=== PATIENT | female | born 1965 | race Caucasian/White ===

== ENCOUNTER 2022-07-01 10:53 | Inpatient (IN) ==
[2022-07-01] MEDS ORDERED: SODIUM CHLORIDE 0.9% 1000ML 1,000 ML IV ONE ×2 (11:29→15:41)
[2022-07-01] MEDS ORDERED: ONDANSETRON INJ 2 MG/ML 2 ML VIAL IV STA (11:29)
--- NOTE | 2022-07-01 11:29 | Emergency Department Note ---
Impression & Plan Pneumatosis of intestines, Abdominal pain, Leukocytosis ED Provider Note CHIEF COMPLAINT: Abdominal pain HISTORY OF PRESENT ILLNESS: This 56 yo female patient presents to the emergency department with complaints of generalized abdominal pain that began overnight. Patient states she felt as though she needed to have a bowel movement and took 2 stool softeners. The pain escalated shortly thereafter. Patient states that she has a history of a spinal cord stimulator and is a borderline diabetic. She took 4 Tylenol tablets prior to arrival. She feels the pain is worsening she denies any vomiting or fevers. She denies any blood in the stool. She was able to pass 1 despite these interventions. Small formed stool without any relief. REVIEW OF SYSTEMS: A review of systems was performed with positives and pertinent negatives listed in the history of present illness. 10 systems were reviewed and are otherwise negative. ALLERGIES: see below MEDICATIONS: see below PMH: see below SOCIAL HISTORY: see below DDx:Appendicitis, diverticulitis, UTI, obstruction, mesenteric ischemia, aortic pathology, inflammatory bowel disease, renal colic, PUD, pancreatitis, biliary pathology, hernia, volvulus, constipation, as well as other pathologies. PHYSICAL EXAM: Vital signs reviewed. General: Chronically ill-appearing 56-year-old female, in no significant distress. HEENT: No scleral icterus, PERRLA, neck supple. MMM. Nicotine staining noted. Cardiovascular: Tachycardic rate and rhythm, no extra sounds. Pulmonary: Clear to auscultation bilaterally, normal work of breathing. Abdomen: Soft, tender to palpation RLQ, + guarding, no tympany to percussion, nondistended, positive bowel sounds. Musculoskeletal: Atraumatic, no peripheral edema. Neurologic: Patient awake alert and oriented x 3, speech is clear Skin: Warm, dry, no rash EMERGENCY DEPARTMENT COURSE/MDM: This patient was evaluated and appeared to be in some discomfort. IV access was obtained and laboratory work was drawn. Patient was given IV morphine and Zofran for her discomfort. Patient is noted to be tachycardic and remained tachycardic throughout her stay. She was also medicated with IV Zosyn after blood cultures were performed. Patient's laboratory work reveals an elevated WBC of 15.59 but a normal lactate 1.8. LFTs are within normal limits. There is concern over tiny loculated pockets of air concerning for bowel ischemia and/or small perforations. Patient was placed on continuous IV hydration and discussed with the hospitalist service. General surgery was contacted for consultation. Patient has expressed understanding of plan and agrees. MONITORING: An order for cardiac monitoring was placed and the patient is noted to be in a sinus tachycardia at 128 beats per minute. RADIOLOGY: See below EKG: Sinus tachycardia at 138 with a left anterior fascicular block, possible an terior infarct. QTc is 427, normal ST segments. No PVC, no PAC. No significant change from previous dated 07/29/2021 DISPOSITION: Admission Past Med/Surg History Medical History Anxiety Bipolar disorder Bipolar disorder, unspecified Cervical radiculopathy Depression Diabetes Fibromyalgia GERD (gastroesophageal reflux disease) Hx of concussion Lumbar pain Mood disorder Surgical History H/O knee surgery Hx of cholecystectomy Hx of hysterectomy S/P insertion of spinal cord stimulator Family History Other Diabetes Gallbladder disease Social History Smoking Status: Current every day smoker Tobacco Type: Cigarettes Preferred Language: Polish Communication Ability: Unable marital status: Single Current Living Situation: Alone current occupational status: employed Feels Safe at Home: Yes Assistive Devices: None Allergies Allergies Allergy/AdvReac Type Severity Reaction Status Date / Time Iodinated Contrast Media Allergy Severe throat Verified 07/01/22 15:31 edema Sulfa (Sulfonamide Allergy Severe ANAPHYLAXIS Verified 07/01/22 15:31 Antibiotics) nitrofurantoin Allergy Intermediate Rash Verified 07/01/22 15:31 iodine Allergy Unknown Unknown Verified 07/01/22 15:31 gabapentin AdvReac Severe intensifies Verified 07/01/22 15:31 bipolar depression codeine AdvReac Intermediate Nausea Verified 07/01/22 15:31 Home Meds Home Medications Medication Instructions Recorded Confirmed aripiprazole 20 mg tablet 20 mg PO QAM 06/02/18 07/01/22 esomeprazole magnesium 20 mg 20 mg PO DAILYBB 06/02/18 07/01/22 tablet,delayed release (Nexium 24HR) hydroxyzine HCl 50 mg tablet 50 mg PO BID 06/02/18 07/01/22 trazodone 100 mg tablet 200 mg PO HS 06/02/18 07/01/22 prazosin 2 mg capsule (Minipress) 2 mg PO HS 09/16/20 07/01/22 prazosin 1 mg capsule (Minipress) 1 mg PO HS 11/06/20 07/01/22 pregabalin 150 mg capsule 150 mg PO QAM 04/15/21 07/01/22 baclofen 10 mg tablet 10 mg PO QAM 07/09/21 07/01/22 pregabalin 225 mg capsule 225 mg PO HS 07/09/21 07/01/22 clobetasol 0.05 % topical cream 1 applic topical BID PRN AFFECTED 07/01/22 07/01/22 AREA dextran 70-hypromellose eye drops 1 drp ophthalmic (eye) HS 07/01/22 07/01/22 lamotrigine 25 mg tablet 50 mg PO QAM 07/01/22 07/01/22 levothyroxine 175 mcg tablet 175 mcg PO DAILYBB 07/01/22 07/01/22 metformin 500 mg tablet,extended 500 mg PO QAM 07/01/22 07/01/22 release 24 hr multivit w-Ca,khncngal-GA-hbasks 1 tab PO HS 07/01/22 07/01/22 complex no.223 400 mcg tablet (Estroven Mood and Memory) tramadol 50 mg tablet 50 mg PO BID PRN Pain 07/01/22 07/01/22 Previous Rx's Medication Instructions Recorded ondansetron 4 mg disintegrating 4 mg PO Q8H PRN nausea and 03/14/19 tablet vomiting #14 tabs ciprofloxacin HCl 500 mg tablet 500 mg PO BID 7 days #14 tabs 07/10/22 (Cipro) metronidazole 500 mg tablet 500 mg PO Q8H 7 days #21 tabs 07/10/22 oxycodone-acetaminophen 5 mg-325 1 tab PO Q8H PRN pain #15 tabs 07/10/22 mg tablet (Percocet) Results & Data (ED) Vital Signs Vital Signs - 24 hr 07/01/22 11:02 Temperature 36.7 C Temperature Source Temporal Artery Scan Pulse Rate 128 H Respiratory Rate 18 Respiratory Effort / Characteristics Non-Labored Respiratory Depth Normal Respiratory Pattern Regular Blood Pressure 107/76 Blood Pressure Mean 86 Blood Pressure Position Sitting Pulse Oximetry 95 Oxygen Delivery Method Room Air Sepsis Recent Fever Within 48 Hours No Sepsis New/Unexplained Change in Mental Status No Sepsis Action Taken by Nursing No Action Required Home Medications Current Medication List: was personally reviewed by me Laboratory Data Attestation: I reviewed the patient's lab results. Result diagrams: 07/09/22 08:38 07/09/22 08:38 Lab Results 07/01/22 07/01/22 07/01/22 Range/Units 11:25 11:25 11:25 WBC 15.59 H (4.8-10.8) K/ul RBC 5.79 H (3.93-5.22) M/uL Hgb 17.2 H (12.0-16.0) g/dl Hct 52.9 H (34.1-44.9) % MCV 91.4 (80.0-100.0) fL MCH 29.7 (25.0-34.0) pg MCHC 32.5 (32.0-36.0) g/dL RDW Std Deviation 46.0 (36.4-46.3) fL RDW Coeff of Arnold 13.6 (11.5-14.5) % Plt Count 303 (130-400) K/uL MPV 10.5 (9.4-12.3) fL Immature Gran % (Auto) 0.4 % Neut % (Auto) 88.3 % Lymph % (Auto) 6.2 % [place] % (Auto) 4.7 % Eos % (Auto) 0.1 % Baso % (Auto) 0.3 % Neut # (Auto) 13.77 H (1.4-6.5) K/uL Lymph # (Auto) 0.97 L (1.2-3.4) K/uL [place] # (Auto) 0.73 (0.24-0.82) K/uL Eos # (Auto) 0.02 (0-0.50) K/uL Baso # (Auto) 0.04 (0-0.2) K/uL Immature Gran # (Auto) 0.06 H (0.00-0.02) K/uL Sodium 143 (136-145) mmol/L Potassium 4.0 (3.5-5.1) mmol/L Chloride 108 H (98-107) mmol/L Carbon Dioxide 25 (21-32) mmol/L Anion Gap 10 (3-11) BUN 12 (6-23) mg/dl Creatinine 0.70 (0.6-1.2) mg/dl Est Cr Clr Drug Dosing 93.8 ml/min Est GFR ( Amer) 113.8 ml/min Est GFR (Non-Af Amer) 98.2 ml/min BUN/Creatinine Ratio 17.1 (10-20) Glucose 147 H (70-99(Fasting)) mg/dl Lactate (0.4-2.0) mmol/L Calcium 10.4 H (8.5-10.1) mg/dl Total Bilirubin 0.6 (0.2-1.0) mg/dl AST 15 (13-39) U/L ALT 15 (7-52) U/L Alkaline Phosphatase 81 (34-104) U/L Total Protein 7.3 (6.0-8.3) gm/dl Albumin 4.3 (3.4-5.0) gm/dl Globulin 3.0 (2.5-4.0) gm/dl Albumin/Globulin Ratio 1.4 (0.9-2) Lipase 8 L (11-82) U/L TSH 0.028 L (0.300-4.500) uIu/ml Free T4 0.69 (0.61-1.60) ng/dl 07/01/22 Range/Units 15:39 WBC (4.8-10.8) K/ul RBC (3.93-5.22) M/uL Hgb (12.0-16.0) g/dl Hct (34.1-44.9) % MCV (80.0-100.0) fL MCH (25.0-34.0) pg MCHC (32.0-36.0) g/dL RDW Std Deviation (36.4-46.3) fL RDW Coeff of Arnold (11.5-14.5) % Plt Count (130-400) K/uL MPV (9.4-12.3) fL Immature Gran % (Auto) % Neut % (Auto) % Lymph % (Auto) % [place] % (Auto) % Eos % (Auto) % Baso % (Auto) % Neut # (Auto) (1.4-6.5) K/uL Lymph # (Auto) (1.2-3.4) K/uL [place] # (Auto) (0.24-0.82) K/uL Eos # (Auto) (0-0.50) K/uL Baso # (Auto) (0-0.2) K/uL Immature Gran # (Auto) (0.00-0.02) K/uL Sodium (136-145) mmol/L Potassium (3.5-5.1) mmol/L Chloride (98-107) mmol/L Carbon Dioxide (21-32) mmol/L Anion Gap (3-11) BUN (6-23) mg/dl Creatinine (0.6-1.2) mg/dl Est Cr Clr Drug Dosing ml/min Est GFR ( Amer) ml/min Est GFR (Non-Af Amer) ml/min BUN/Creatinine Ratio (10-20) Glucose (70-99(Fasting)) mg/dl Lactate 1.6 (0.4-2.0) mmol/L Calcium (8.5-10.1) mg/dl Total Bilirubin (0.2-1.0) mg/dl AST (13-39) U/L ALT (7-52) U/L Alkaline Phosphatase (34-104) U/L Total Protein (6.0-8.3) gm/dl Albumin (3.4-5.0) gm/dl Globulin (2.5-4.0) gm/dl Albumin/Globulin Ratio (0.9-2) Lipase (11-82) U/L TSH (0.300-4.500) uIu/ml Free T4 (0.61-1.60) ng/dl Administered Medications Discontinued Medications Acetaminophen (Acetaminophen 325 Mg Tab) 650 mg PO Q4H PRN PRN Reason: Mild Pain Stop: 08/03/22 09:49 Last Admin: 07/09/22 17:19 Dose: 650 mg Documented By: Admin: 07/09/22 11:26 Dose: 650 mg Documented By: Admin: 07/06/22 12:25 Dose: 650 mg Documented By: RRR Aripiprazole (Aripiprazole 10 Mg Tab) 20 mg PO QAM DASHA Stop: 08/01/22 08:59 Last Admin: 07/10/22 08:08 Dose: 20 mg Documented By: Admin: 07/09/22 08:16 Dose: 20 mg Documented By: Admin: 07/08/22 08:35 Dose: 20 mg Documented By: Admin: 07/07/22 08:35 Dose: 20 mg Documented By: Admin: 07/06/22 08:46 Dose: 20 mg Documented By: Admin: 07/05/22 08:30 Dose: 20 mg Documented By: Admin: 07/04/22 09:49 Dose: 20 mg Documented By: Admin: 07/03/22 11:26 Dose: 20 mg Documented By: Admin: 07/02/22 09:10 Dose: 20 mg Documented By: SUB Artificial Tears (Artificial Tears) 1 drops OP HS DASHA Stop: 07/31/22 21:04 Last Admin: 07/09/22 19:49 Dose: Not Given Documented By: Admin: 07/08/22 21:19 Dose: Not Given Documented By: Admin: 07/07/22 20:16 Dose: Not Given Documented By: Admin: 07/06/22 20:14 Dose: Not Given Documented By: Admin: 07/05/22 20:47 Dose: 1 drops Documented By: Admin: 07/04/22 20:35 Dose: 1 drops Documented By: Admin: 07/03/22 20:45 Dose: 1 drops Documented By: Admin: 07/02/22 20:29 Dose: 1 drops Documented By: Admin: 07/01/22 21:30 Dose: Not Given Documented By: MNM Baclofen (Baclofen 10 Mg Tab) 10 mg PO QAM DASHA Stop: 08/01/22 08:59 Last Admin: 07/10/22 08:27 Dose: 10 mg Documented By: Admin: 07/09/22 08:22 Dose: 10 mg Documented By: Admin: 07/08/22 08:44 Dose: 10 mg Documented By: Admin: 07/07/22 08:46 Dose: 10 mg Documented By: Admin: 07/06/22 10:09 Dose: 10 mg Documented By: Admin: 07/05/22 08:29 Dose: 10 mg Documented By: Admin: 07/04/22 09:50 Dose: 10 mg Documented By: Admin: 07/03/22 11:26 Dose: 10 mg Documented By: Admin: 07/02/22 09:10 Dose: 10 mg Documented By: SUB Bupivacaine HCl (Bupivacaine 0.5 % 5 Mg/1 Ml Mpf 30ml Vial) Confirm Administered Dose 30 ml .ROUTE .STK-MED ONE Stop: 07/02/22 11:12 Last Admin: 07/02/22 14:03 Dose: 20 ml Documented By: CY Enoxaparin Sodium (Enoxaparin Inj 40 Mg/0.4 Ml Syr) 40 mg SQ QAM DASHA Stop: 08/03/22 10:14 Last Admin: 07/10/22 08:08 Dose: 40 mg Documented By: Admin: 07/09/22 08:16 Dose: 40 mg Documented By: Admin: 07/08/22 08:36 Dose: 40 mg Documented By: Admin: 07/07/22 08:36 Dose: 40 mg Documented By: Admin: 07/06/22 11:02 Dose: 40 mg Documented By: Admin: 07/05/22 08:39 Dose: 40 mg Documented By: Admin: 07/04/22 10:20 Dose: 40 mg Documented By: WRS Furosemide (Furosemide Inj 20 Mg/2 Ml Vial) 20 mg IV ONE ONE Stop: 07/06/22 15:02 Last Admin: 07/06/22 15:18 Dose: 20 mg Documented By: RRR Furosemide (Furosemide Inj 20 Mg/2 Ml Vial) 20 mg IV ONE ONE Stop: 07/07/22 12:29 Last Admin: 07/07/22 13:20 Dose: 20 mg Documented By: KKS Heparin Sodium (Porcine) (Heparin Sod 5,000 Unit/0.5 Ml Vial) 5,000 units SQ Q12 DASHA Stop: 07/31/22 20:59 Last Admin: 07/01/22 21:30 Dose: Not Given Documented By: MNM Heparin Sodium (Porcine) (Heparin Sod 5,000 Unit/0.5 Ml Vial) 5,000 units SQ Q8 DASHA Stop: 08/01/22 08:59 Last Admin: 07/02/22 09:11 Dose: 5,000 units Documented By: SUB Hydromorphone HCl (Hydromorphone Inj 0.5 Mg/0.5 Ml Syr) 0.5 mg IV Q6H PRN PRN Reason: Pain Stop: 07/15/22 18:41 Last Admin: 07/02/22 05:00 Dose: 0.5 mg Documented By: Admin: 07/01/22 21:45 Dose: 0.5 mg Documented By: DANAE Hydromorphone HCl (Hydromorphone Inj 1 Mg/Ml Syringe) 1 mg IV Q6H PRN PRN Reason: Pain Stop: 07/16/22 16:38 Last Admin: 07/03/22 07:51 Dose: 1 mg Documented By: Admin: 07/03/22 01:01 Dose: 1 mg Documented By: Admin: 07/02/22 19:57 Dose: 1 mg Documented By: SAMANTHA Hydromorphone HCl (Hydromorphone Inj 0.5 Mg/0.5 Ml Syr) 0.5 mg IV Q4H PRN PRN Reason: Pain Stop: 07/17/22 12:19 Last Admin: 07/05/22 08:29 Dose: 0.5 mg Documented By: Admin: 07/04/22 14:47 Dose: 0.5 mg Documented By: Admin: 07/04/22 10:30 Dose: 0.5 mg Documented By: Admin: 07/03/22 16:52 Dose: 0.5 mg Documented By: LISA Hydromorphone HCl (Hydromorphone Inj 0.5 Mg/0.5 Ml Syr) 0.5 mg IV Q4H PRN PRN Reason: severe pain Stop: 07/17/22 12:19 Last Admin: 07/09/22 19:49 Dose: 0.5 mg Documented By: Admin: 07/09/22 14:47 Dose: 0.5 mg Documented By: Admin: 07/08/22 17:57 Dose: 0.5 mg Documented By: Admin: 07/08/22 08:44 Dose: 0.5 mg Documented By: Admin: 07/07/22 19:47 Dose: 0.5 mg Documented By: Admin: 07/07/22 15:22 Dose: 0.5 mg Documented By: Admin: 07/07/22 01:42 Dose: 0.5 mg Documented By: Admin: 07/06/22 19:41 Dose: 0.5 mg Documented By: Admin: 07/06/22 14:16 Dose: 0.5 mg Documented By: Admin: 07/06/22 08:47 Dose: 0.5 mg Documented By: Admin: 07/06/22 02:52 Dose: 0.5 mg Documented By: Admin: 07/05/22 17:13 Dose: 0.5 mg Documented By: Admin: 07/05/22 13:57 Dose: 0.5 mg Documented By: BRENDA Hydroxyzine HCl (Hydroxyzine Hcl 25 Mg Tab) 50 mg PO BID DASHA Stop: 07/31/22 21:04 Last Admin: 07/10/22 08:12 Dose: 50 mg Documented By: Admin: 07/09/22 19:47 Dose: 50 mg Documented By: Admin: 07/09/22 08:19 Dose: 50 mg Documented By: Admin: 07/08/22 21:18 Dose: 50 mg Documented By: Admin: 07/08/22 08:44 Dose: 50 mg Documented By: Admin: 07/07/22 20:28 Dose: 50 mg Documented By: Admin: 07/07/22 08:46 Dose: 50 mg Documented By: Admin: 07/06/22 20:13 Dose: 50 mg Documented By: Admin: 07/06/22 10:10 Dose: 50 mg Documented By: Admin: 07/05/22 20:47 Dose: 50 mg Documented By: Admin: 07/05/22 08:30 Dose: 50 mg Documented By: Admin: 07/04/22 20:34 Dose: 50 mg Documented By: Admin: 07/04/22 09:50 Dose: 50 mg Documented By: Admin: 07/03/22 20:46 Dose: 50 mg Documented By: Admin: 07/03/22 11:26 Dose: 50 mg Documented By: Admin: 07/02/22 19:56 Dose: Not Given Documented By: Admin: 07/02/22 09:10 Dose: 50 mg Documented By: Admin: 07/01/22 21:30 Dose: Not Given Documented By: MNM Sodium Chloride (Nss 1000ml) 1,000 mls @ 999 mls/hr IV .Q1H1M ONE Stop: 07/01/22 12:29 Last Infusion: 07/01/22 13:45 Dose: 0 mls/hr Documented By: [id number] Admin: 07/01/22 11:35 Dose: 999 mls/hr Documented By: SERGE Piperacillin Sod/Tazobactam Sod (Zosyn) 4.5 gm in 120 mls @ 240 mls/hr IV NOW ONE Stop: 07/01/22 16:02 Last Infusion: 07/01/22 17:34 Dose: 0 mls/hr Documented By: [id number] Admin: 07/01/22 15:47 Dose: 240 mls/hr Documented By: [id number] Sodium Chloride (Nss 1000ml) 1,000 mls @ 150 mls/hr IV .Q6H40M DASHA Stop: 07/31/22 15:44 Last Infusion: 07/01/22 21:35 Dose: 0 mls/hr Documented By: Admin: 07/01/22 17:39 Dose: 150 mls/hr Documented By: [id number] Sodium Chloride (Nss 1000ml) 1,000 mls @ 999 mls/hr IV .Q1H1M ONE Stop: 07/01/22 16:41 Last Infusion: 07/01/22 17:34 Dose: 0 mls/hr Documented By: [id number] Admin: 07/01/22 15:49 Dose: 999 mls/hr Documented By: [id number] Piperacillin Sod/Tazobactam (Sod 4.5 gm/ Dextrose) 120 mls @ 30 mls/hr IV Q8H DASHA; Protocol Stop: 07/03/22 21:59 Last Admin: 07/02/22 17:48 Dose: Not Given Documented By: Infusion: 07/02/22 09:16 Dose: 0 mls/hr Documented By: Admin: 07/02/22 05:33 Dose: 30 mls/hr Documented By: Infusion: 07/02/22 02:40 Dose: 0 mls/hr Documented By: Admin: 07/01/22 22:55 Dose: 30 mls/hr Documented By: DANAE Lactated Ringer's (Lr) 1,000 mls @ 125 mls/hr IV .Q8H DASHA Stop: 07/02/22 18:29 Last Infusion: 07/02/22 09:08 Dose: 0 mls/hr Documented By: Admin: 07/02/22 05:33 Dose: 125 mls/hr Documented By: Infusion: 07/02/22 05:33 Dose: 125 mls/hr Documented By: Admin: 07/01/22 21:36 Dose: 125 mls/hr Documented By: DANAE Pantoprazole Sodium 40 mg/ (Syringe) 10 mls @ 5 mls/min IV DAILY@1100 DASHA Stop: 08/01/22 10:59 Last Admin: 07/02/22 17:49 Dose: Not Given Documented By: ANTONIETTA Sodium Chloride (Nss 1000ml) 1,000 mls @ 125 mls/hr IV .Q8H DASHA Stop: 08/01/22 08:59 Last Admin: 07/02/22 17:48 Dose: Not Given Documented By: Infusion: 07/02/22 17:11 Dose: 0 mls/hr Documented By: Admin: 07/02/22 09:11 Dose: 125 mls/hr Documented By: PAYAL Piperacillin Sod/Tazobactam (Sod 3.375 gm/ Dextrose) 115 mls @ 28.75 mls/hr IV Q8H DASHA; Protocol Stop: 07/04/22 14:00 Last Infusion: 07/04/22 14:35 Dose: 0 mls/hr Documented By: Admin: 07/04/22 10:27 Dose: 28.8 mls/hr Documented By: Infusion: 07/04/22 05:45 Dose: 0 mls/hr Documented By: Admin: 07/04/22 01:32 Dose: 28.7 mls/hr Documented By: Infusion: 07/03/22 21:50 Dose: 0 mls/hr Documented By: Admin: 07/03/22 17:51 Dose: 30 mls/hr Documented By: Infusion: 07/03/22 14:41 Dose: 0 mls/hr Documented By: Admin: 07/03/22 11:01 Dose: 30 mls/hr Documented By: Infusion: 07/03/22 05:02 Dose: 0 mls/hr Documented By: Admin: 07/03/22 01:02 Dose: 28.8 mls/hr Documented By: TP Lactated Ringer's (Lr) 1,000 mls @ 125 mls/hr IV .Q8H DASHA Stop: 08/01/22 17:29 Last Infusion: 07/03/22 12:30 Dose: 0 mls/hr Documented By: Admin: 07/03/22 09:22 Dose: 125 mls/hr Documented By: Infusion: 07/03/22 09:22 Dose: 125 mls/hr Documented By: Admin: 07/03/22 02:18 Dose: 125 mls/hr Documented By: Infusion: 07/03/22 02:18 Dose: 125 mls/hr Documented By: Admin: 07/02/22 19:56 Dose: 125 mls/hr Documented By: TP Piperacillin Sod/Tazobactam (Sod 3.375 gm/ Dextrose) 115 mls @ 230 mls/hr IV NOW STA; Protocol Stop: 07/02/22 19:32 Last Infusion: 07/02/22 20:25 Dose: 0 mls/hr Documented By: Admin: 07/02/22 19:55 Dose: 230 mls/hr Documented By: TP Pantoprazole Sodium 40 mg/ (Syringe) 10 mls @ 5 mls/min IV DAILY@1100 DASHA Stop: 08/02/22 10:59 Last Admin: 07/05/22 12:00 Dose: 5 mls/min Documented By: [facility] Admin: 07/04/22 10:21 Dose: 5 mls/min Documented By: Admin: 07/03/22 10:57 Dose: 5 mls/min Documented By: GPF Potassium Chloride (K [place] / Wtr) 10 meq in 100 mls @ 100 mls/hr IV Q1H DASHA Stop: 07/03/22 10:29 Last Infusion: 07/03/22 13:27 Dose: 0 mls/hr Documented By: Admin: 07/03/22 12:15 Dose: 50 mls/hr Documented By: Infusion: 07/03/22 12:15 Dose: 100 mls/hr Documented By: Admin: 07/03/22 11:15 Dose: 50 mls/hr Documented By: Infusion: 07/03/22 11:15 Dose: 50 mls/hr Documented By: Admin: 07/03/22 09:51 Dose: 50 mls/hr Documented By: Infusion: 07/03/22 09:48 Dose: 75 mls/hr Documented By: Admin: 07/03/22 07:48 Dose: 50 mls/hr Documented By: GPF Levothyroxine Sodium 100 mcg/ (Syringe) 5 mls @ 2 mls/min IV NOW ONE Stop: 07/03/22 10:02 Last Admin: 07/03/22 10:56 Dose: 2 mls/min Documented By: GPF Magnesium Sulfate/Dextrose (Magnesium Sulfate / D5w) 1 gm in 100 mls @ 50 mls/hr IV Q2H DASHA; Protocol Stop: 07/03/22 13:59 Last Infusion: 07/03/22 14:41 Dose: 0 mls/hr Documented By: Admin: 07/03/22 12:47 Dose: 50 mls/hr Documented By: Infusion: 07/03/22 12:47 Dose: 50 mls/hr Documented By: Admin: 07/03/22 11:02 Dose: 50 mls/hr Documented By: GPF Sodium Phosphate 15 mmol/ (Sodium Chloride) 255 mls @ 88 mls/hr IV ONE ONE Stop: 07/03/22 13:23 Last Infusion: 07/03/22 13:49 Dose: 0 mls/hr Documented By: Admin: 07/03/22 10:57 Dose: 88 mls/hr Documented By: GPF Lactated Ringer's (Lr) 1,000 mls @ 60 mls/hr IV .[id number] DASHA Stop: 08/02/22 12:29 Last Infusion: 07/06/22 09:08 Dose: 0 mls/hr Documented By: Admin: 07/05/22 20:48 Dose: 60 mls/hr Documented By: Infusion: 07/05/22 20:48 Dose: 60 mls/hr Documented By: Infusion: 07/05/22 14:53 Dose: 60 mls/hr Documented By: Infusion: 07/05/22 10:15 Dose: 0 mls/hr Documented By: Infusion: 07/05/22 06:14 Dose: 60 mls/hr Documented By: Infusion: 07/05/22 05:31 Dose: 0 mls/hr Documented By: Admin: 07/05/22 05:24 Dose: 60 mls/hr Documented By: Infusion: 07/05/22 04:56 Dose: 60 mls/hr Documented By: Infusion: 07/05/22 01:15 Dose: 60 mls/hr Documented By: Infusion: 07/05/22 00:40 Dose: 0 mls/hr Documented By: Infusion: 07/04/22 15:27 Dose: 60 mls/hr Documented By: Admin: 07/04/22 12:37 Dose: 80 mls/hr Documented By: Infusion: 07/04/22 12:37 Dose: 80 mls/hr Documented By: Admin: 07/04/22 01:33 Dose: 80 mls/hr Documented By: Infusion: 07/04/22 01:00 Dose: 80 mls/hr Documented By: Admin: 07/03/22 12:30 Dose: 80 mls/hr Documented By: GPF Potassium Chloride (K Ker[place] / Wtr) 10 meq in 100 mls @ 100 mls/hr IV Q1H DASHA; Protocol Stop: 07/03/22 22:29 Last Infusion: 07/04/22 00:40 Dose: 0 mls/hr Documented By: Admin: 07/03/22 23:38 Dose: 100 mls/hr Documented By: Infusion: 07/03/22 22:50 Dose: 100 mls/hr Documented By: Admin: 07/03/22 21:50 Dose: 100 mls/hr Documented By: Infusion: 07/03/22 21:44 Dose: 100 mls/hr Documented By: Admin: 07/03/22 20:44 Dose: 100 mls/hr Documented By: Infusion: 07/03/22 19:48 Dose: 100 mls/hr Documented By: Admin: 07/03/22 18:48 Dose: 100 mls/hr Documented By: GPF Potassium Chloride (K Kerwin / Wtr) 10 meq in 100 mls @ 100 mls/hr IV Q1H DASHA Stop: 07/04/22 10:59 Last Infusion: 07/04/22 11:30 Dose: 0 mls/hr Documented By: WRYuliana Admin: 07/04/22 10:20 Dose: 100 mls/hr Documented By: Infusion: 07/04/22 10:20 Dose: 100 mls/hr Documented By: Admin: 07/04/22 09:30 Dose: 100 mls/hr Documented By: Infusion: 07/04/22 09:30 Dose: 100 mls/hr Documented By: Admin: 07/04/22 08:34 Dose: 100 mls/hr Documented By: Infusion: 07/04/22 08:34 Dose: 100 mls/hr Documented By: Admin: 07/04/22 07:34 Dose: 100 mls/hr Documented By: ANNS Ampicillin Sodium/Sulbactam Sodium 3,000 mg/ Sodium Chloride 108 mls @ 216 mls/hr IV Q6H [facility]; Protocol Stop: 07/14/22 17:59 Last Infusion: 07/10/22 12:30 Dose: 0 mls/hr Documented By: Admin: 07/10/22 12:00 Dose: 216 mls/hr Documented By: Infusion: 07/10/22 07:15 Dose: 0 mls/hr Documented By: Admin: 07/10/22 05:56 Dose: 216 mls/hr Documented By: Infusion: 07/10/22 01:01 Dose: 0 mls/hr Documented By: Admin: 07/10/22 00:26 Dose: 216 mls/hr Documented By: Infusion: 07/09/22 18:13 Dose: 0 mls/hr Documented By: Admin: 07/09/22 17:19 Dose: 216 mls/hr Documented By: Infusion: 07/09/22 12:43 Dose: 0 mls/hr Documented By: Admin: 07/09/22 12:13 Dose: 216 mls/hr Documented By: Infusion: 07/09/22 06:10 Dose: 0 mls/hr Documented By: Admin: 07/09/22 05:40 Dose: 216 mls/hr Documented By: Infusion: 07/09/22 01:11 Dose: 0 mls/hr Documented By: Admin: 07/09/22 00:34 Dose: 216 mls/hr Documented By: Infusion: 07/08/22 18:26 Dose: 0 mls/hr Documented By: Admin: 07/08/22 17:56 Dose: 216 mls/hr Documented By: Infusion: 07/08/22 13:08 Dose: 0 mls/hr Documented By: Admin: 07/08/22 12:38 Dose: 216 mls/hr Documented By: Infusion: 07/08/22 06:19 Dose: 0 mls/hr Documented By: Admin: 07/08/22 05:41 Dose: 216 mls/hr Documented By: Infusion: 07/08/22 01:38 EDT Dose: 216 mls/hr Documented By: Admin: 07/08/22 00:12 Dose: 216 mls/hr Documented By: Infusion: 07/07/22 20:01 Dose: 0 mls/hr Documented By: Admin: 07/07/22 17:54 Dose: 216 mls/hr Documented By: Infusion: 07/07/22 13:00 Dose: 0 mls/hr Documented By: Admin: 07/07/22 12:30 Dose: 216 mls/hr Documented By: Infusion: 07/07/22 06:05 Dose: 0 mls/hr Documented By: Admin: 07/07/22 05:33 Dose: 216 mls/hr Documented By: Infusion: 07/07/22 00:16 Dose: 0 mls/hr Documented By: Admin: 07/06/22 23:46 Dose: 216 mls/hr Documented By: Infusion: 07/06/22 18:35 Dose: 0 mls/hr Documented By: Admin: 07/06/22 17:57 Dose: 216 mls/hr Documented By: Infusion: 07/06/22 13:08 Dose: 0 mls/hr Documented By: Admin: 07/06/22 12:28 Dose: 216 mls/hr Documented By: Infusion: 07/06/22 06:15 Dose: 0 mls/hr Documented By: Admin: 07/06/22 05:39 Dose: 216 mls/hr Documented By: Infusion: 07/06/22 00:50 Dose: 0 mls/hr Documented By: Admin: 07/06/22 00:15 Dose: 216 mls/hr Documented By: Infusion: 07/05/22 19:00 Dose: 0 mls/hr Documented By: Admin: 07/05/22 18:18 Dose: 216 mls/hr Documented By: Infusion: 07/05/22 13:35 Dose: 0 mls/hr Documented By: Admin: 07/05/22 12:36 Dose: 216 mls/hr Documented By: Infusion: 07/05/22 06:14 Dose: 0 mls/hr Documented By: Admin: 07/05/22 05:31 Dose: 216 mls/hr Documented By: Infusion: 07/05/22 01:15 Dose: 0 mls/hr Documented By: Admin: 07/05/22 00:36 Dose: 216 mls/hr Documented By: Infusion: 07/04/22 18:37 Dose: 0 mls/hr Documented By: Admin: 07/04/22 17:53 Dose: 216 mls/hr Documented By: GEMMA Sodium Phosphate 21 mmol/ (Sodium Chloride) 507.5 mls @ 145 mls/hr IV ONE ONE Stop: 07/04/22 15:29 Last Infusion: 07/04/22 15:28 Dose: 0 mls/hr Documented By: Admin: 07/04/22 12:08 Dose: 145 mls/hr Documented By: GEMMA Potassium Phosphate 15 mmol/ (Sodium Chloride) 255 mls @ 88 mls/hr IV 1000 ONE Stop: 07/05/22 12:53 Last Infusion: 07/05/22 14:52 Dose: 0 mls/hr Documented By: Infusion: 07/05/22 14:00 Dose: 88 mls/hr Documented By: Infusion: 07/05/22 12:30 Dose: 0 mls/hr Documented By: Admin: 07/05/22 10:15 Dose: 88 mls/hr Documented By: BRENDA Acetaminophen (Ofirmev) 1,000 mg in 100 mls @ 400 mls/hr IV Q8H PRN PRN Reason: pain Stop: 07/08/22 12:18 Last Infusion: 07/05/22 17:13 Dose: 0 mls/hr Documented By: Admin: 07/05/22 16:46 Dose: 400 mls/hr Documented By: KHH Insulin Aspart (Insulin Aspart Per Unit) 0 units SC Q6 DASHA Stop: 08/01/22 00:00 Last Admin: 07/04/22 11:51 Dose: Not Given Documented By: WRS Co-signed By: SKS Admin: 07/04/22 06:23 Dose: Not Given Documented By: Admin: 07/03/22 23:52 Dose: Not Given Documented By: Admin: 07/03/22 17:51 Dose: Not Given Documented By: GPF Co-signed By: MIKHAIL Admin: 07/03/22 12:14 Dose: Not Given Documented By: GPF Co-signed By: [id number] Admin: 07/03/22 06:09 Dose: Not Given Documented By: TP Co-signed By: CHRISTIANEP Admin: 07/02/22 23:43 Dose: Not Given Documented By: TP Co-signed By: LLP Admin: 07/02/22 19:19 Dose: Not Given Documented By: Admin: 07/02/22 18:52 Dose: Not Given Documented By: Admin: 07/02/22 05:34 Dose: Not Given Documented By: Admin: 07/02/22 00:55 Dose: Not Given Documented By: MNM Insulin Aspart (Insulin Aspart Per Unit) 0 units SC ACHS DASHA Stop: 08/03/22 16:29 Last Admin: 07/10/22 17:19 Dose: Not Given Documented By: Admin: 07/10/22 11:57 Dose: Not Given Documented By: Admin: 07/10/22 08:07 Dose: Not Given Documented By: Admin: 07/09/22 21:40 Dose: Not Given Documented By: Admin: 07/09/22 16:45 Dose: Not Given Documented By: Admin: 07/09/22 12:09 Dose: Not Given Documented By: Admin: 07/09/22 08:15 Dose: Not Given Documented By: Admin: 07/08/22 21:45 Dose: Not Given Documented By: Admin: 07/08/22 16:47 Dose: Not Given Documented By: Admin: 07/08/22 12:05 Dose: Not Given Documented By: Admin: 07/08/22 08:09 Dose: Not Given Documented By: Admin: 07/07/22 20:17 Dose: Not Given Documented By: Admin: 07/07/22 16:37 Dose: Not Given Documented By: Admin: 07/07/22 11:40 Dose: Not Given Documented By: Admin: 07/07/22 08:37 Dose: Not Given Documented By: Admin: 07/06/22 20:18 Dose: Not Given Documented By: Admin: 07/06/22 17:23 Dose: Not Given Documented By: Admin: 07/06/22 12:26 Dose: Not Given Documented By: Admin: 07/06/22 08:45 Dose: Not Given Documented By: Admin: 07/05/22 20:49 Dose: Not Given Documented By: INDRA Co-signed By: WARREN Admin: 07/05/22 18:13 Dose: Not Given Documented By: Admin: 07/05/22 12:38 Dose: Not Given Documented By: Admin: 07/05/22 08:00 Dose: Not Given Documented By: Admin: 07/04/22 22:24 Dose: Not Given Documented By: ED Co-signed By: TNK Admin: 07/04/22 16:29 Dose: Not Given Documented By: WRS Co-signed By: EMMANUEL Lamotrigine (Lamotrigine 25 Mg Tab) [facility] [place] 08/01/22 08:59 Last Admin: 07/10/22 08:08 Dose: 50 mg Documented By: Admin: 07/09/22 08:16 Dose: 50 mg Documented By: Admin: 07/08/22 08:35 Dose: 50 mg Documented By: Admin: 07/07/22 08:35 Dose: 50 mg Documented By: Admin: 07/06/22 08:47 Dose: 50 mg Documented By: Admin: 07/05/22 08:29 Dose: 50 mg Documented By: Admin: 07/04/22 09:50 Dose: 50 mg Documented By: Admin: 07/03/22 11:26 Dose: 50 mg Documented By: Admin: 07/02/22 09:10 Dose: 50 mg Documented By: SUB Levothyroxine Sodium (Levothyroxine Sodium 175 Mcg Tablet) 175 mcg PO DAILYBB DASHA Stop: 08/01/22 06:29 Last Admin: 07/10/22 05:56 Dose: 175 mcg Documented By: Admin: 07/09/22 05:25 Dose: 175 mcg Documented By: Admin: 07/08/22 05:41 Dose: 175 mcg Documented By: Admin: 07/07/22 05:31 Dose: 175 mcg Documented By: Admin: 07/06/22 05:40 Dose: 175 mcg Documented By: BLIdris Admin: 07/05/22 05:32 Dose: 175 mcg Documented By: Admin: 07/04/22 06:23 Dose: 175 mcg Documented By: Admin: 07/03/22 06:42 Dose: Not Given Documented By: Admin: 07/02/22 05:33 Dose: Not Given Documented By: MNLady Lidocaine HCl (Lidocaine 1% Local 20 Ml Vial) Confirm Administered Dose 20 ml .ROUTE .STK-MED ONE Stop: 07/02/22 11:12 Last Admin: 07/02/22 14:03 Dose: 20 ml Documented By: OPAL Orozco (Icu Electrolyte Replacement Protocol) 1 each N/A BID@06,18 DASHA; Protocol Stop: 07/09/22 17:59 Last Admin: 07/04/22 11:38 Dose: 1 each Documented By: Admin: 07/04/22 06:46 Dose: 1 each Documented By: Admin: 07/03/22 18:14 Dose: 1 each Documented By: Admin: 07/03/22 09:50 Dose: 1 each Documented By: Admin: 07/03/22 06:41 Dose: 1 each Documented By: Admin: 07/02/22 20:20 Dose: Not Given Documented By: TP Miscellaneous (Icu Protocol For Hyperglycemia) 1 each N/A QAM DASHA Stop: 07/04/22 18:44 Last Admin: 07/04/22 09:51 Dose: Not Given Documented By: Admin: 07/03/22 07:49 Dose: Not Given Documented By: GPPeter Admin: 07/02/22 19:55 Dose: Not Given Documented By: TP Miscellaneous (Check Scopolamine Patch Placement) 1 each N/A QS DASHA Stop: 08/02/22 00:00 Last Admin: 07/03/22 07:49 Dose: 1 each Documented By: Admin: 07/02/22 23:43 Dose: 1 each Documented By: SAMANTHA Miscellaneous (Remove Transderm-Scop Patch) 1 each N/A NOW ONE Stop: 07/03/22 10:01 Last Admin: 07/03/22 10:56 Dose: 1 each Documented By: GPPeter Morphine Sulfate (Morphine Sulfate 4 Mg/Ml 1 Ml Carp\Vial) 4 mg IV NOW STA Stop: 07/01/22 12:16 Last Admin: 07/01/22 12:38 Dose: 4 mg Documented By: [id number] Ondansetron HCl (Ondansetron Inj 2 Mg/Ml 2 Ml Vial) 4 mg IV NOW STA Stop: 07/01/22 11:30 Last Admin: 07/01/22 12:38 Dose: 4 mg Documented By: [id number] Ondansetron HCl (Ondansetron 4 Mg Od Tab) 4 mg PO Q8H PRN PRN Reason: nausea and vomiting Stop: 08/01/22 16:38 Last Admin: 07/02/22 17:58 Dose: 4 mg Documented By: EEIdris Oxycodone HCl (Oxycodone Hcl Ir 5 Mg Tab (Immediate Release)) 5 mg PO NOW STA Stop: 07/01/22 11:33 Last Admin: 07/01/22 12:38 Dose: 5 mg Documented By: [id number] Oxycodone/Acetaminophen (Oxycodone/Acetaminophen 5mg/325mg Tab) 1 tab PO Q4H PRN PRN Reason: moderate pain Stop: 07/18/22 09:49 Last Admin: 07/09/22 08:19 Dose: 1 tab Documented By: Admin: 07/04/22 12:38 Dose: 1 tab Documented By: GEMMA Oxycodone/Acetaminophen (Oxycodone/Acetaminophen 5mg/325mg Tab) 2 tab PO Q4H PRN PRN Reason: Severe Pain Stop: 07/18/22 09:49 Last Admin: 07/10/22 11:17 Dose: 2 tab Documented By: Admin: 07/10/22 05:55 Dose: 2 tab Documented By: Admin: 07/09/22 12:13 Dose: 2 tab Documented By: Admin: 07/08/22 21:19 Dose: 2 tab Documented By: Admin: 07/08/22 15:41 Dose: 2 tab Documented By: Admin: 07/08/22 05:44 Dose: 2 tab Documented By: Admin: 07/08/22 01:13 EST Dose: 2 tab Documented By: Admin: 07/07/22 10:04 Dose: 2 tab Documented By: Admin: 07/07/22 04:24 Dose: 2 tab Documented By: Admin: 07/06/22 22:10 Dose: 2 tab Documented By: Admin: 07/06/22 17:15 Dose: 2 tab Documented By: Admin: 07/06/22 11:06 Dose: 2 tab Documented By: Admin: 07/04/22 18:36 Dose: 2 tab Documented By: VALENCIA Pantoprazole Sodium (Pantoprazole 40 Mg Tab) 40 mg PO QA DASHA Stop: 08/08/22 08:59 Last Admin: 07/10/22 08:07 Dose: 40 mg Documented By: Admin: 07/09/22 08:16 Dose: 40 mg Documented By: VALENCIA Potassium Chloride (Potassium Chloride Crtab 20 Meq Tabcr) 40 meq PO NOW STA Stop: 07/06/22 14:54 Last Admin: 07/06/22 15:17 Dose: 40 meq Documented By: THUY Potassium Chloride (Potassium Chloride Crtab 20 Meq Tabcr) 40 meq PO NOW STA Stop: 07/07/22 12:29 Last Admin: 07/07/22 13:20 Dose: 40 meq Documented By: TRISTON Prazosin HCl (Prazosin Hcl 1 Mg Cap) 3 mg PO [facility] Stop: 07/31/22 21:04 Last Admin: 07/09/22 19:48 Dose: 3 mg Documented By: Admin: 07/08/22 21:20 Dose: 3 mg Documented By: Admin: 07/07/22 20:17 Dose: 3 mg Documented By: Admin: 07/06/22 20:13 Dose: 3 mg Documented By: Admin: 07/05/22 20:48 Dose: 3 mg Documented By: Admin: 07/04/22 20:34 Dose: 3 mg Documented By: Admin: 07/03/22 20:46 Dose: 3 mg Documented By: Admin: 07/02/22 19:57 Dose: Not Given Documented By: Admin: 07/01/22 21:30 Dose: Not Given Documented By: MNM Pregabalin (Pregabalin 150 Mg Cap) 150 mg PO QAM DASHA Stop: 08/01/22 08:59 Last Admin: 07/10/22 08:12 Dose: 150 mg Documented By: Admin: 07/09/22 08:19 Dose: 150 mg Documented By: Admin: 07/08/22 08:44 Dose: 150 mg Documented By: Admin: 07/07/22 08:45 Dose: 150 mg Documented By: Admin: 07/06/22 08:47 Dose: 150 mg Documented By: Admin: 07/05/22 08:29 Dose: 150 mg Documented By: Admin: 07/04/22 09:50 Dose: 150 mg Documented By: Admin: 07/03/22 11:26 Dose: 150 mg Documented By: Admin: 07/02/22 09:16 Dose: 150 mg Documented By: SUB Pregabalin (Pregabalin 75 Mg Cap) 225 mg PO HS DASHA Stop: 07/31/22 21:04 Last Admin: 07/09/22 19:48 Dose: 225 mg Documented By: Admin: 07/08/22 21:19 Dose: 225 mg Documented By: Admin: 07/07/22 20:31 Dose: 225 mg Documented By: Admin: 07/06/22 20:14 Dose: 225 mg Documented By: Admin: 07/05/22 20:47 Dose: 225 mg Documented By: Admin: 07/04/22 20:35 Dose: 225 mg Documented By: Admin: 07/03/22 20:53 Dose: 225 mg Documented By: Admin: 07/02/22 19:57 Dose: Not Given Documented By: Admin: 07/01/22 21:30 Dose: Not Given Documented By: MNM Scopolamine (Scopolamine 1 Mg Tdsy) Confirm Administered Dose 1 mg TD .STK-MED ONE Stop: 07/02/22 11:48 Last Admin: 07/02/22 18:51 Dose: Not Given Documented By: EEH Tramadol HCl (Tramadol Hcl 50 Mg Tablet) 50 mg PO BID PRN PRN Reason: Pain Stop: 08/01/22 16:38 Last Admin: 07/02/22 17:59 Dose: 50 mg Documented By: ANTONIETTA Trazodone HCl (Trazodone Hcl 100 Mg Tab) 200 mg PO HS DASHA Stop: 08/06/22 20:59 Last Admin: 07/09/22 19:48 Dose: 200 mg Documented By: Admin: 07/08/22 21:20 Dose: 200 mg Documented By: Admin: 07/07/22 21:01 Dose: 200 mg Documented By: MELVIN Vancomycin HCl (Vancomycin Hcl 1000mg/20ml Vial) Confirm Administered Dose 50 mg .ROUTE .STK-MED ONE Stop: 07/02/22 13:23 Last Admin: 07/02/22 13:26 Dose: 1,000 mg Documented By: OPAL Imaging Data Radiologist's Impression: Abdomen/Pelvis CT 07/01/22 11:31 CT OF THE ABDOMEN AND PELVIS WITH ORAL CONTRAST CLINICAL HISTORY: RLQ abd pain, IV contrast allergy COMPARISON STUDY: CT of the abdomen and pelvis January 07, 2019. TECHNIQUE: Axial images of the abdomen and pelvis were obtained without IV contrast. Oral contrast was administered. Automated exposure control was utilized for the study. A dose lowering technique was utilized adhering to the principles of ALARA. FINDINGS: Ground glass and linear opacities within the lower lungs favor atelectasis. Intracanalicular device is partially imaged. Evaluation of the abd omen and pelvis is suboptimal given the lack of IV contrast and mild motion artifact. Calcifications within the right hepatic lobe are unchanged. There is no biliary ductal dilatation status post cholecystectomy. No hepatic lesions are identified on this unenhanced exam. Spleen, adrenal glands, left kidney and pancreas are unremarkable. There is a 2 mm calculus within the lower pole of the right kidney. There are no ureteral calculi. There is no hydronephrosis. There is no evidence for a bowel obstruction. Oral contrast reaches the colon. However, there is a small amount of abdominal and pelvic ascites. There is apparent wall thickening of several small bowel loops. In addition, there are sc attered tiny extraluminal locules of gas which could be within mesenteric veins. Definitive source for this gas is not identified. Minimal small bowel pneumatosis would be difficult to exclude. No fluid collection is identified on unenhanced exam. Colonic diverticulosis is noted. There is wall thickening of the sigmoid colon. No acute fracture or suspicious lesion is identified within the visualized skeletal structures. A moderate amount of stool within the colon is present. IMPRESSION: 1. Small amount of abdominal and pelvic ascites. Wall thickening of several small bowel loops which may reflect enteritis with several tiny locules of extraluminal gas which could be within mesenteric veins. Possible minimal pneumatosis. Although suboptimally assessed on this unenhanced exam, the find ings raise the possibility of bowel ischemia or a tiny contained perforation. Close clinical follow-up is recommended. If persistent abdominal pain, surgical consultation is recommended. 2. Sigmoid diverticulosis with colonic wall thickening. This could reflect circular muscular hypertrophy although acute diverticulitis would be difficult to exclude. No abscess. 3. No bowel obstruction. Oral contrast reaches the colon. 4. Moderate amount of stool within the colon. ACT 112: Negative or not required by law. Electronically signed by: Ruben Torres M.D. 07/01/2022 3:03 PM Blood Pressure Blood Pressure Findings: Elevated blood pressure Blood Pressure Disposition: further management by hospitalist Discharge Plan Visit Data Chief Complaint: Abdominal Pain Stated Complaint: ABD PAIN,NAUSEA,CANT POOP ED Provider: Alma Rosa Mireles Discharge Problem: Pneumatosis of intestines, Abdominal pain, Leukocytosis Patient Disposition: Admitted As Inpatient Discharge Instructions Interventions: ED Discharge Assessment Last Done: 07/01/22 20:56 : Abdominal pain Qualifiers: Abdominal location: lower abdomen, unspecified Qualified Code(s): R10.30 - Lower abdominal pain, unspecified Leukocytosis Qualifiers: Leukocytosis type: unspecified Qualified Code(s): D72.829 - Elevated white blood cell count, unspecified
[2022-07-01] MEDS ORDERED: oxyCODONE HCL IR 5 MG TAB (IMMEDIATE RELEASE) PO STA (11:32)
[2022-07-01 11:47] LABS: Basophils # (auto) 0.04 K/uL (0-0.2); Basophils % (auto) 0.3 %; Eosinophils # (auto) 0.02 K/uL (0-0.50); Eosinophils % (auto) 0.1 %; Hematocrit (blood only) 52.9 % (34.1-44.9); Hemoglobin 17.2 g/dl (12.0-16.0); Immature Granulocytes # (auto) 0.06 K/uL (0.00-0.02); Immature Granulocytes % (auto) 0.4 %; Lymphocytes # (auto) 0.97 K/uL (1.2-3.4); Lymphocytes % (auto) 6.2 %; Mean Corpuscular Hemoglobin 29.7 pg (25.0-34.0); Mean Corpuscular Hgb Conc 32.5 g/dL (32.0-36.0); Mean Corpuscular Volume 91.4 fL (80.0-100.0); Mean Platelet Volume 10.5 fL (9.4-12.3); Monocytes # (auto) 0.73 K/uL (0.24-0.82); Monocytes % (auto) 4.7 %; Neutrophils # (auto) 13.77 K/uL (1.4-6.5); Neutrophils % (auto) 88.3 %; Platelet Count 303 K/uL (130-400); RDW Coefficient of Variation 13.6 % (11.5-14.5); Red Blood Count 5.79 M/uL (3.93-5.22); White Blood Count 15.59 K/ul (4.8-10.8)
[2022-07-01 12:05] LABS: Albumin Globulin Ratio 1.4 (0.9-2); Albumin Level 4.3 gm/dl (3.4-5.0); BUN Creatinine Ratio 17.1 (10-20); Bilirubin,Total 0.6 mg/dl (0.2-1.0); Calcium 10.4 mg/dl (8.5-10.1); Creatinine Clr Calc Pharmacy 93.8 ml/min; Est GFR (African American) 113.8 ml/min; Est GFR (Non-African American) 98.2 ml/min; Total Protein 7.3 gm/dl (6.0-8.3)
[2022-07-01] MEDS ORDERED: MoRPHine SULFATE 4 MG/ML 1 ML CARP\\VIAL IV STA (12:15)
[2022-07-01 12:21] LABS: Thyroid Stimulating Hormone 0.028 uIu/ml (0.300-4.500)
[2022-07-01 13:00] LABS: T4 Free Thyroxine 0.69 ng/dl (0.61-1.60)
--- NOTE | 2022-07-01 15:05 | CT Scan Report ---
CT OF THE ABDOMEN AND PELVIS WITH ORAL CONTRAST CLINICAL HISTORY: RLQ abd pain, IV contrast allergy COMPARISON STUDY: CT of the abdomen and pelvis January 07, 2019. TECHNIQUE: Axial images of the abdomen and pelvis were obtained without IV contrast. Oral contrast wa s administered. Automated exposure control was utilized for the study. A dose lowering technique was utilized adhering to the principles of ALARA. FINDINGS: Ground glass and linear opacities within the lower lungs favor atelectasis. Intracanalicula r device is partially imaged. Evaluation of the abdomen and pelvis is suboptimal given the lack of IV contrast and mild motion artifact. Calcifications within the right hepatic lobe are unchanged. There is no biliary ductal dilatation status post cholecystectomy. No hepatic lesions are identified on th is unenhanced exam. Spleen, adrenal glands, left kidney and pancreas are unremarkable. There is a 2 m m calculus within the lower pole of the right kidney. There are no ureteral calculi. There is no hydr onephrosis. There is no evidence for a bowel obstruction. Oral contrast reaches the colon. However, t here is a small amount of abdominal and pelvic ascites. There is apparent wall thickening of several small bowel loops. In addition, there are scattered tiny extraluminal locules of gas which could be w ithin mesenteric veins. Definitive source for this gas is not identified. Minimal small bowel pneumat osis would be difficult to exclude. No fluid collection is identified on unenhanced exam. Colonic div erticulosis is noted. There is wall thickening of the sigmoid colon. No acute fracture or suspicious lesion is identified within the visualized skeletal structures. A moderate amount of stool within the colon is present. IMPRESSION: 1. Small amount of abdominal and pelvic ascites. Wall thickening of several small bowel loops which m ay reflect enteritis with several tiny locules of extraluminal gas which could be within mesenteric v eins. Possible minimal pneumatosis. Although suboptimally assessed on this unenhanced exam, the findi ngs raise the possibility of bowel ischemia or a tiny contained perforation. Close clinical follow-up is recommended. If persistent abdominal pain, surgical consultation is recommended. 2. Sigmoid diverticulosis with colonic wall thickening. This could reflect circular muscular hypertro phy although acute diverticulitis would be difficult to exclude. No abscess. 3. No bowel obstruction. Oral contrast reaches the colon. 4. Moderate amount of stool within the colon. ACT 112: Negative or not required by law. Electronically signed by: Ruben Torres M.D. 07/01/2022 3:03 PM
[2022-07-01] MEDS ORDERED: PIPERACILLIN/TAZOBACTAM 4.5 GM/120 ML BAG IV ONE (15:33)
[2022-07-01] MEDS ORDERED: SODIUM CHLORIDE 0.9% 1000ML 1,000 ML IV SCH (15:45)
--- NOTE | 2022-07-01 17:08 | Surgery Consultation ---
Date of Consultation July 01, 2022 Assessment & Plan (1) Abdominal pain: 56 yr old woman with severe abdominal pain and constipation. CT findings with enteritis, ? small foci of pneumotosis but suboptimal study and she cannot take IV contrast. Concerning findings are her tachycardia, leukocytosis of 15, and level of pain. However, lactate is normal, no guarding on exam, BP is stable. Also with history of severe abdominal pain which resolved nonoperatively. Options discussed - exp lap now vs admission for IV hydration, IV antibiotics, treatment of constipation as may be contributing to enteritis, bowel rest. Would recommend serial lactate levels for first 24 hours to ensure no ischemia is being missed. Currently, does not have an acute abdomen so I am comfortable with nonoperative treatment. After review of options, she is in agreement with trial of antibiotics and treatment of constipation. Recommend IV zosyn and enemas per rectum for constipation. Will follow. History of Present Illness Reason for Consultation: abdominal pain Requesting Physician: Alma Rosa Mireles MD History of Present Illness 56 yr old woman seen in the ER for diffuse abdominal pain. This began a few days ago and has steadily worsened. Described as through her entire abdomen, cramping, feels she would be better if she could have a bowel movement. Nausea today but no vomiting. Last bowel movement was a very small stool this am, prior it may have been over a week ago. She does tend to constipation but this length of time is unusual for her. Pain is worse with movement, slightly better if she lays still. No fevers at home. Took two stool softeners this morning with no result yet. She has had severe abdominal pain in the past (2018) with a concern of volvulus on CT scan at that time. Resolved nonoperatively although the pain did occur on a few occasions (two ER visits documented). Today's pain is more severe. Had a spinal stimulator put in afterwards - thinks this may have been to treat the pain but is not sure. Prior abdominal operations include hysterectomy and cholecystectomy. Ct scan personally reviewed - no IV contrast due to allergy (states she cannot even tolerate IV contrast with premedication). Oral contrast given - suboptimal study but shows wall thickening of several loops of small bowel, ? of pneumotosisi with a few small foci of extraluminal gas. Lactate level normal. HR elevated but BP stable. Has been given IVF resuscitation. Allergies Allergy/AdvReac Type Severity Reaction Status Date / Time Iodinated Contrast Media Allergy Severe throat Verified 07/01/22 15:31 edema Sulfa (Sulfonamide Allergy Severe ANAPHYLAXIS Verified 07/01/22 15:31 Antibiotics) nitrofurantoin Allergy Intermediate Rash Verified 07/01/22 15:31 iodine Allergy Unknown Unknown Verified 07/01/22 15:31 gabapentin AdvReac Severe intensifies Verified 07/01/22 15:31 bipolar depression codeine AdvReac Intermediate Nausea Verified 07/01/22 15:31 Home Medications Medication Instructions Recorded Confirmed Type aripiprazole 20 mg tablet 20 mg PO QAM 06/02/18 07/01/22 History esomeprazole magnesium 20 mg 20 mg PO DAILYBB 06/02/18 07/01/22 History tablet,delayed release (Nexium 24HR) hydroxyzine HCl 50 mg tablet 50 mg PO BID 06/02/18 07/01/22 History trazodone 100 mg tablet 200 mg PO HS 06/02/18 07/01/22 History ondansetron 4 mg disintegrating 4 mg PO Q8H PRN nausea and 03/14/19 07/01/22 Rx tablet vomiting #14 tabs prazosin 2 mg capsule (Minipress) 2 mg PO HS 09/16/20 07/01/22 History prazosin 1 mg capsule (Minipress) 1 mg PO HS 11/06/20 07/01/22 History pregabalin 150 mg capsule 150 mg PO QAM 04/15/21 07/01/22 History baclofen 10 mg tablet 10 mg PO QAM 07/09/21 07/01/22 History pregabalin 225 mg capsule 225 mg PO HS 07/09/21 07/01/22 History clobetasol 0.05 % topical cream 1 applic topical BID PRN AFFECTED 07/01/22 07/01/22 History AREA dextran 70-hypromellose eye drops 1 drp ophthalmic (eye) HS 07/01/22 07/01/22 History lamotrigine 25 mg tablet 50 mg PO QAM 07/01/22 07/01/22 History levothyroxine 175 mcg tablet 175 mcg PO DAILYBB 07/01/22 07/01/22 History metformin 500 mg tablet,extended 500 mg PO QAM 07/01/22 07/01/22 History release 24 hr multivit w-Ca,[id number] 1 tab PO HS 07/01/22 07/01/22 History complex no.223 400 mcg tablet (Estroven Mood and Memory) tramadol 50 mg tablet 50 mg PO BID PRN Pain 07/01/22 07/01/22 History Patient History Medical History Anxiety Bipolar disorder Bipolar disorder, unspecified Cervical radiculopathy Depression Diabetes Fibromyalgia GERD (gastroesophageal reflux disease) Hx of concussion Lumbar pain Mood disorder Surgical History H/O knee surgery Hx of cholecystectomy Hx of hysterectomy S/P insertion of spinal cord stimulator Family History Other Diabetes Gallbladder disease Social History Smoking Status: Current every day smoker Tobacco Type: Cigarettes Preferred Language: French marital status: Single Current Living Situation: Alone current occupational status: employed Feels Safe at Home: Yes Review of Systems Constitutional: no fever and no chills Eyes: no problem reported Respiratory: no problem reported Cardiovascular: no problem reported Gastrointestinal: as per Subjective / HPI Neurologic: no problem reported Psychiatric: bipolar, on multiple psych meds Physical Exam Constitutional: WD/WN, vitals as above Eyes: PERRL, conjunctivae normal, anicteric sclerae ENMT: external ear and nose normal, oropharynx normal Respiratory: normal respiratory effort, lungs clear to auscultation Cardiovascular: Rate/Rhythm: regular rhythm and + tachycardic Heart Sounds: no murmur Gastrointestinal (Abdomen): Inspection/Auscultation: abdomen normal to inspection and + hypoactive bowel sounds; abdomen not distended Percussion/Palpation: + abdomen tender (diffusely) and abdomen soft; no guarding Musculoskeletal: no cyanosis or clubbing, extremities motor strength 5/5 Neurologic: awake; no focal motor deficits Psychiatric: A+Ox3, euthymic affect Results & Data ([place]) Vital Signs (Past 12 Hours) Vital Signs Temp Pulse Resp BP Pulse Ox O2 Del Method O2 Flow Rate 07/01/22 16:36 140 H 28 H 90 07/01/22 16:00 132 H 16 93 07/01/22 16:00 129/69 07/01/22 15:30 146 H 17 94 07/01/22 15:30 130/76 07/01/22 15:00 141 H 16 95 07/01/22 15:00 139/71 07/01/22 14:31 95 07/01/22 14:30 139/79 07/01/22 14:19 137 H 21 92 07/01/22 14:00 132 H 16 89 L 07/01/22 14:00 133/90 07/01/22 13:30 128 H 20 90 07/01/22 13:30 134/75 07/01/22 13:00 126 H 21 91 07/01/22 13:00 127/75 07/01/22 12:44 133 H 33 H 07/01/22 14:01 92 Nasal Cannula 1 07/01/22 14:00 16 88 L Room Air 07/01/22 11:02 36.7 C 128 H 18 107/76 95 Room Air Laboratory Results 07/01/22 07/01/22 07/01/22 Range/Units 15:39 11:25 11:25 WBC (4.8-10.8) K/ul RBC (3.93-5.22) M/uL Hgb (12.0-16.0) g/dl Hct (34.1-44.9) % MCV (80.0-100.0) fL MCH (25.0-34.0) pg MCHC (32.0-36.0) g/dL RDW Std Deviation (36.4-46.3) fL RDW Coeff of Arnold (11.5-14.5) % Plt Count (130-400) K/uL MPV (9.4-12.3) fL Immature Gran % (Auto) % Neut % (Auto) % Lymph % (Auto) % Woods % (Auto) % Eos % (Auto) % Baso % (Auto) % Neut # (Auto) (1.4-6.5) K/uL Lymph # (Auto) (1.2-3.4) K/uL Woods # (Auto) (0.24-0.82) K/uL Eos # (Auto) (0-0.50) K/uL Baso # (Auto) (0-0.2) K/uL Immature Gran # (Auto) (0.00-0.02) K/uL Sodium 143 (136-145) mmol/L Potassium 4.0 (3.5-5.1) mmol/L Chloride 108 H (98-107) mmol/L Carbon Dioxide 25 (21-32) mmol/L Anion Gap 10 (3-11) BUN 12 (6-23) mg/dl Creatinine 0.70 (0.6-1.2) mg/dl Est Cr Clr Drug Dosing 93.8 ml/min Est GFR ( Amer) 113.8 ml/min Est GFR (Non-Af Amer) 98.2 ml/min BUN/Creatinine Ratio 17.1 (10-20) Glucose 147 H (70-99(Fasting)) mg/dl Lactate 1.6 (0.4-2.0) mmol/L Calcium 10.4 H (8.5-10.1) mg/dl Total Bilirubin 0.6 (0.2-1.0) mg/dl AST 15 (13-39) U/L ALT 15 (7-52) U/L Alkaline Phosphatase 81 (34-104) U/L Total Protein 7.3 (6.0-8.3) gm/dl Albumin 4.3 (3.4-5.0) gm/dl Globulin 3.0 (2.5-4.0) gm/dl Albumin/Globulin Ratio 1.4 (0.9-2) Lipase 8 L (11-82) U/L TSH 0.028 L (0.300-4.500) uIu/ml Free T4 0.69 (0.61-1.60) ng/dl 07/01/22 Range/Units 11:25 WBC 15.59 H (4.8-10.8) K/ul RBC 5.79 H (3.93-5.22) M/uL Hgb 17.2 H (12.0-16.0) g/dl Hct 52.9 H (34.1-44.9) % MCV 91.4 (80.0-100.0) fL MCH 29.7 (25.0-34.0) pg MCHC 32.5 (32.0-36.0) g/dL RDW Std Deviation 46.0 (36.4-46.3) fL RDW Coeff of Arnold 13.6 (11.5-14.5) % Plt Count 303 (130-400) K/uL MPV 10.5 (9.4-12.3) fL Immature Gran % (Auto) 0.4 % Neut % (Auto) 88.3 % Lymph % (Auto) 6.2 % Woods % (Auto) 4.7 % Eos % (Auto) 0.1 % Baso % (Auto) 0.3 % Neut # (Auto) 13.77 H (1.4-6.5) K/uL Lymph # (Auto) 0.97 L (1.2-3.4) K/uL Woods # (Auto) 0.73 (0.24-0.82) K/uL Eos # (Auto) 0.02 (0-0.50) K/uL Baso # (Auto) 0.04 (0-0.2) K/uL Immature Gran # (Auto) 0.06 H (0.00-0.02) K/uL Sodium (136-145) mmol/L Potassium (3.5-5.1) mmol/L Chloride (98-107) mmol/L Carbon Dioxide (21-32) mmol/L Anion Gap (3-11) BUN (6-23) mg/dl Creatinine (0.6-1.2) mg/dl Est Cr Clr Drug Dosing ml/min Est GFR ( Amer) ml/min Est GFR (Non-Af Amer) ml/min BUN/Creatinine Ratio (10-20) Glucose (70-99(Fasting)) mg/dl Lactate (0.4-2.0) mmol/L Calcium (8.5-10.1) mg/dl Total Bilirubin (0.2-1.0) mg/dl AST (13-39) U/L ALT (7-52) U/L Alkaline Phosphatase (34-104) U/L Total Protein (6.0-8.3) gm/dl Albumin (3.4-5.0) gm/dl Globulin (2.5-4.0) gm/dl Albumin/Globulin Ratio (0.9-2) Lipase (11-82) U/L TSH (0.300-4.500) uIu/ml Free T4 (0.61-1.60) ng/dl Diagnostic Findings CT scan: CT OF THE ABDOMEN AND PELVIS WITH ORAL CONTRAST CLINICAL HISTORY: RLQ abd pain, IV contrast allergy COMPARISON STUDY: CT of the abdomen and pelvis January 07, 2019. TECHNIQUE: Axial images of the abdomen and pelvis were obtained without IV contrast. Oral contrast was administered. Automated exposure control was utilized for the study. A dose lowering technique was utilized adhering to the principles of ALARA. FINDINGS: Ground glass and linear opacities within the lower lungs favor atelectasis. Intracanalicular device is partially imaged. Evaluation of the abdomen and pelvis is suboptimal given the lack of IV contrast and mild motion artifact. Calcifications within the right hepatic lobe are unchanged. There is no biliary ductal dilatation status post cholecystectomy. No hepatic lesions are identified on this unenhanced exam. Spleen, adrenal glands, left kidney and pancreas are unremarkable. There is a 2 mm calculus within the lower pole of the right kidney. There are no ureteral calculi. There is no hydronephrosis. There is no evidence for a bowel obstruction. Oral contrast reaches the colon. However, there is a small amount of abdominal and pelvic ascites. There is apparent wall thickening of several small bowel loops. In addition, there are sc attered tiny extraluminal locules of gas which could be within mesenteric veins. Definitive source for this gas is not identified. Minimal small bowel pneumatosis would be difficult to exclude. No fluid collection is identified on unenhanced exam. Colonic diverticulosis is noted. There is wall thickening of the sigmoid colon. No acute fracture or suspicious lesion is identified within the visualized skeletal structures. A moderate amount of stool within the colon is present. IMPRESSION: 1. Small amount of abdominal and pelvic ascites. Wall thickening of several small bowel loops which may reflect enteritis with several tiny locules of extraluminal gas which could be within mesenteric veins. Possible minimal pneumatosis. Although suboptimally assessed on this unenhanced exam, the finding s raise the possibility of bowel ischemia or a tiny contained perforation. Close clinical follow-up is recommended. If persistent abdominal pain, surgical consultation is recommended. 2. Sigmoid diverticulosis with colonic wall thickening. This could reflect circular muscular hypertrophy although acute diverticulitis would be difficult to exclude. No abscess. 3. No bowel obstruction. Oral contrast reaches the colon. 4. Moderate amount of stool within the colon. Medications Administered morphine
--- NOTE | 2022-07-01 18:42 | History & Physical Report ---
Date of Service July 01, 2022 Assessment & Plan (1) Abdominal pain: Plan: Presented with acute abdominal pain since last evening and the condition has gotten worse since this morning CT scan did show nonspecific enteritis and pneumatosis differential could be ischemic/inflammatory/infective Possible sepsis-though lactic acid is normal and will recheck in 6 hours Started with intravenous fluid, intravenous antibiotic after taking cultures Stool will be sent for C. difficile and also culture Appreciate surgery input and recommendation May need GI evaluation Will monitor in telemetry unit Tachycardia Likely secondary to possible sepsis Will give adequate intravenous fluid Observe in the telemetry unit (2) Bipolar disorder, unspecified: Plan: We will continue current medication Hold her trazodone for tonight (3) Diabetes: Plan: Hold metformin Put her on sliding scale insulin coverage (4) Cervical radiculopathy: (5) S/P insertion of spinal cord stimulator: Plan: Has fibromyalgia and cervical radiculopathy and is status post insertion of a spinal cord stimulator (6) GERD (gastroesophageal reflux disease): Plan: We will hold oral Protonix Give intravenous Protonix (7) Fibromyalgia: Plan: Continue current medications DVT prophylaxis Subcu heparin CODE STATUS Full History of Present Illness Chief Complaint: Abdominal pain since last evening Primary Care Provider: Juanjose Robb MD She is a 56-year-old female with significant past medical history of hypertension, type 2 diabetes, cervical radiculopathy, GERD,bipolar disorder and fibromyalgia with status post insertion of a spinal cord stimulator apparently took a stool softener last evening for constipation. She is not usually constipated but as she did not move her bowel she took a stool softener but did not have any bowel movement right away and started to have abdominal pain the pain persisted and she has had a small bowel movement today but with increasing pain she was brought into the emergency room for further evaluation. Denies any fever or any chills, no nausea and or vomiting, no sweating, no chest pain and/or palpitation and no problem with urine. She has had a history of severe abdominal pain like this before that resolved spontaneously. Stat CT scan of the abdomen and pelvis without contrast showed small amount of abdominal and pelvic ascites, wall thickening of several small bowel loops which may reflect enteritis with several tiny locules of extraluminal gas which could be within the mesenteric veins. Possible minimal pneumatosis although suboptimally assess ed on this unenhanced exam the findings raise the possibility of bowel ischemia or tiny contained perforation no diverticulitis. She was reviewed by surgery and was advised for observation and admission. Apparently she was noted to be very tachycardic but did not have any fever and or increasing lactic acid. She has been on prazosin not sure if she has been continuing it or not. She was admitted to telemetry unit for continuation of care with a possible sepsis. Allergies Allergy/AdvReac Type Severity Reaction Status Date / Time Iodinated Contrast Media Allergy Severe throat Verified 07/01/22 15:31 edema Sulfa (Sulfonamide Allergy Severe ANAPHYLAXIS Verified 07/01/22 15:31 Antibiotics) nitrofurantoin Allergy Intermediate Rash Verified 07/01/22 15:31 iodine Allergy Unknown Unknown Verified 07/01/22 15:31 gabapentin AdvReac Severe intensifies Verified 07/01/22 15:31 bipolar depression codeine AdvReac Intermediate Nausea Verified 07/01/22 15:31 Home Medications Medication Instructions Recorded Confirmed Type aripiprazole 20 mg tablet 20 mg PO QAM 06/02/18 07/01/22 History esomeprazole magnesium 20 mg 20 mg PO DAILYBB 06/02/18 07/01/22 History tablet,delayed release (Nexium 24HR) hydroxyzine HCl 50 mg tablet 50 mg PO BID 06/02/18 07/01/22 History trazodone 100 mg tablet 200 mg PO HS 06/02/18 07/01/22 History ondansetron 4 mg disintegrating 4 mg PO Q8H PRN nausea and 03/14/19 07/01/22 Rx tablet vomiting #14 tabs prazosin 2 mg capsule (Minipress) 2 mg PO HS 09/16/20 07/01/22 History prazosin 1 mg capsule (Minipress) 1 mg PO HS 11/06/20 07/01/22 History pregabalin 150 mg capsule 150 mg PO QAM 04/15/21 07/01/22 History baclofen 10 mg tablet 10 mg PO QAM 07/09/21 07/01/22 History pregabalin 225 mg capsule 225 mg PO HS 07/09/21 07/01/22 History clobetasol 0.05 % topical cream 1 applic topical BID PRN AFFECTED 07/01/22 07/01/22 History AREA dextran 70-hypromellose eye drops 1 drp ophthalmic (eye) HS 07/01/22 07/01/22 History lamotrigine 25 mg tablet 50 mg PO QAM 07/01/22 07/01/22 History levothyroxine 175 mcg tablet 175 mcg PO DAILYBB 07/01/22 07/01/22 History metformin 500 mg tablet,extended 500 mg PO QAM 07/01/22 07/01/22 History release 24 hr multivit w-Ca,[id number] 1 tab PO HS 07/01/22 07/01/22 History complex no.223 400 mcg tablet (Estroven Mood and Memory) tramadol 50 mg tablet 50 mg PO BID PRN Pain 07/01/22 07/01/22 History Past Med/Surg History Medical History Anxiety Bipolar disorder Bipolar disorder, unspecified Cervical radiculopathy Depression Diabetes Fibromyalgia GERD (gastroesophageal reflux disease) Hx of concussion Lumbar pain Mood disorder Surgical History H/O knee surgery Hx of cholecystectomy Hx of hysterectomy S/P insertion of spinal cord stimulator Family History Other Diabetes Gallbladder disease Social History Smoking Status: Current every day smoker Tobacco Type: Cigarettes Preferred Language: Bulgarian Communication Ability: Effective marital status: Single Current Living Situation: Alone current occupational status: employed Feels Safe at Home: Yes Assistive Devices: None Review of Systems Review of Systems: All systems reviewed and are unremarkable except as noted in the H&P Physical Exam Physical Exam: Lying in bed with distress due to abdominal discomfort and pain. Drowsy from the action of pain medications that was given in the emergency room Constitutional: well developed, well nourished, + ill appearing and + obese Eyes: PERRL, conjunctivae normal, anicteric sclerae ENMT: external ear and nose normal, oropharynx normal Neck: trachea midline, no thyromegaly Respiratory: no respiratory distress Auscultation: lungs clear to auscultation bilaterally; no crackles Cardiovascular: Rate/Rhythm: regular rate, regular rhythm and + tachycardic Heart Sounds: normal S1 and normal S2; no murmur Gastrointestinal (Abdomen): Inspection/Auscultation: + abdomen distended; + abnormal bowel sounds (Decreased) Percussion/Palpation: + abdomen tender (Tender all over with minimal guarding and rebound tenderness) and abdomen soft Musculoskeletal: No acute arthritis involving any joint Neurologic: Alert, awake and oriented x3. No focal sensory or no motor deficit appreciated Lymphatic: no cervical or axillary lymphadenopathy Results & Data Results & Data ([facility]) Vital Signs (Past 12 Hours) Vital Signs Temp Pulse Resp BP Pulse Ox O2 Del Method O2 Flow Rate 07/01/22 16:36 140 H 28 H 90 07/01/22 16:00 132 H 16 93 07/01/22 16:00 129/69 07/01/22 15:30 146 H 17 94 07/01/22 15:30 130/76 07/01/22 15:00 141 H 16 95 07/01/22 15:00 139/71 07/01/22 14:31 95 07/01/22 14:30 139/79 07/01/22 14:19 137 H 21 92 07/01/22 14:00 132 H 16 89 L 07/01/22 14:00 133/90 07/01/22 13:30 128 H 20 90 07/01/22 13:30 134/75 07/01/22 13:00 126 H 21 91 07/01/22 13:00 127/75 07/01/22 12:44 133 H 33 H 07/01/22 14:01 92 Nasal Cannula 1 07/01/22 14:00 16 88 L Room Air 07/01/22 11:02 36.7 C 128 H 18 107/76 95 Room Air Laboratory Results Short CBC 07/01/22 Range/Units 11:25 WBC 15.59 H (4.8-10.8) K/ul Hgb 17.2 H (12.0-16.0) g/dl Hct 52.9 H (34.1-44.9) % Plt Count 303 (130-400) K/uL BMP 07/01/22 11:25 Sodium 143 Potassium 4.0 Chloride 108 H Carbon Dioxide 25 BUN 12 Creatinine 0.70 Glucose 147 H Calcium 10.4 H Liver Function 07/01/22 Range/Units 11:25 Total Bilirubin 0.6 (0.2-1.0) mg/dl AST 15 (13-39) U/L ALT 15 (7-52) U/L Alkaline Phosphatase 81 (34-104) U/L Albumin 4.3 (3.4-5.0) gm/dl Medications Administered Current Inpatient Medications Sodium Chloride (Nss 1000ml) 1,000 mls @ 150 mls/hr IV .[id number] DASHA Stop: 07/31/22 15:44 Last Admin: 07/01/22 17:39 Dose: 150 mls/hr Piperacillin Sod/Tazobactam (Sod 4.5 gm/ Dextrose) 120 mls @ 30 mls/hr IV Q8H DASHA; Protocol Stop: 07/03/22 18:29 Lactated Ringer's (Lr) 1,000 mls @ 125 mls/hr IV .Q8H DASHA Stop: 07/02/22 18:29 Code Status & VTE Plan VTE Prophylaxis Plan VTE Prophylaxis will be ordered: Yes
[2022-07-01 19:29] LABS: Appearance Urine Clear (Clear); Bacteria Urine Automated Negative (Negative); Bilirubin Urine Negative (Negative); Blood Urine Negative (Negative); Color Urine Yellow; Epithelial Cell Urine Auto >30 /lpf (0-5); Glucose Urine UA Negative (Negative); Ketones Urine Negative (Negative); Leukocyte Esterase Urine 2+ (Negative); Nitrite Urine Negative (Negative); Protein Urine Negative (Negative); RBC Urine Automated 0-4 /hpf (0-4); Specific Gravity Urine 1.014 (1.000-1.030); Urobilinogen Urine Negative (Negative); WBC Urine Automated >30 /hpf (0-5); pH Urine 5.5 (4.5-7.5)
[2022-07-01] MEDS ORDERED: HEPARIN SOD 5,000 UNIT/0.5 ML VIAL SQ SCH (21:00)
[2022-07-01] MEDS ORDERED: PRAZOSIN HCL 1 MG CAP PO SCH (21:05)
[2022-07-01] MEDS ORDERED: CLOBETASOL PROPIONATE 0.05% OINT 15 GM TUBE EXT PRN (21:16)
[2022-07-01] MEDS: PRAZOSIN HCL 1 MG CAP PO SCH (21:30)
[2022-07-01] MEDS: hydrOXYzine HCl 25 MG TAB PO SCH (21:30)
[2022-07-01] MEDS: ARTIFICIAL TEARS OP SCH (21:30)
[2022-07-01] MEDS: PREGABALIN 75 MG CAP PO SCH (21:30)
[2022-07-01] MEDS: LACTATED RINGER'S 1,000 ML IV SCH (21:36)
[2022-07-01] MEDS: HYDROmorphone INJ 0.5 MG/0.5 ML SYR IV PRN (21:45)
[2022-07-01] MEDS: PIPERACILLIN/TAZOBACTAM 4.5 GM in DEXTROSE 5% 100 ML IV SCH (22:55)
[2022-07-02] MEDS: INSULIN ASPART PER UNIT SC SCH ×5 (00:55→23:43)
[2022-07-02] MEDS: HYDROmorphone INJ 0.5 MG/0.5 ML SYR IV PRN (05:00)
[2022-07-02] MEDS: PIPERACILLIN/TAZOBACTAM 4.5 GM in DEXTROSE 5% 100 ML IV SCH ×2 (05:33→17:48)
[2022-07-02] MEDS: LEVOTHYROXINE SODIUM 175 MCG TABLET PO SCH (05:33)
[2022-07-02] MEDS: LACTATED RINGER'S 1,000 ML IV SCH ×2 (05:33→19:56)
[2022-07-02 07:52] LABS: Basophils # (auto) 0.09 K/uL (0-0.2); Basophils % (auto) 0.4 %; Eosinophils # (auto) 0.04 K/uL (0-0.50); Eosinophils % (auto) 0.2 %; Hematocrit (blood only) 47.1 % (34.1-44.9); Hemoglobin 15.5 g/dl (12.0-16.0); Immature Granulocytes % (auto) 0.9 %; Lymphocytes # (auto) 1.39 K/uL (1.2-3.4); Lymphocytes % (auto) 6.6 %; Mean Corpuscular Hemoglobin 29.9 pg (25.0-34.0); Mean Corpuscular Hgb Conc 32.9 g/dL (32.0-36.0); Mean Corpuscular Volume 90.8 fL (80.0-100.0); Mean Platelet Volume 10.3 fL (9.4-12.3); Monocytes # (auto) 0.76 K/uL (0.24-0.82); Monocytes % (auto) 3.6 %; Neutrophils # (auto) 18.65 K/uL (1.4-6.5); Neutrophils % (auto) 88.3 %; Platelet Count 285 K/uL (130-400); RDW Coefficient of Variation 13.8 % (11.5-14.5); RDW Standard Deviation 46.5 fL (36.4-46.3); Red Blood Count 5.19 M/uL (3.93-5.22); White Blood Count 21.13 K/ul (4.8-10.8)
[2022-07-02 08:31] LABS: Alanine Aminotransferase 36 U/L (7-52); Albumin Globulin Ratio 1.4 (0.9-2); Albumin Level 3.6 gm/dl (3.4-5.0); Alkaline Phosphatase 66 U/L (34-104); BUN Creatinine Ratio 15.8 (10-20); Bilirubin,Total 0.8 mg/dl (0.2-1.0); Blood Urea Nitrogen 9 mg/dl (6-23); Calcium 9.7 mg/dl (8.5-10.1); Carbon Dioxide 26 mmol/L (21-32); Chloride 108 mmol/L (98-107); Creatinine Clr Calc Pharmacy 118.6 ml/min; Est GFR (African American) 121.8 ml/min; Est GFR (Non-African American) 105.1 ml/min; Globulin 2.6 gm/dl (2.5-4.0); Glucose 133 mg/dl (70-99(Fasting)); Lipase 36 U/L (11-82); Total Protein 6.2 gm/dl (6.0-8.3)
[2022-07-02] MEDS ORDERED: HEPARIN SOD 5,000 UNIT/0.5 ML VIAL SQ SCH (09:00)
[2022-07-02] MEDS: hydrOXYzine HCl 25 MG TAB PO SCH ×2 (09:10→19:56)
[2022-07-02] MEDS: lamoTRIgine 25 MG TAB PO SCH (09:10)
[2022-07-02] MEDS: BACLOFEN 10 MG TAB PO SCH (09:10)
[2022-07-02] MEDS: ARIPiprazole 10 MG TAB PO SCH (09:10)
[2022-07-02] MEDS: SODIUM CHLORIDE 0.9% 1000ML 1,000 ML IV SCH ×2 (09:11→17:48)
[2022-07-02] MEDS: PREGABALIN 150 MG CAP PO SCH (09:16)
--- NOTE | 2022-07-02 09:28 | Gastrointestinal Consultation ---
Date of Consultation July 02, 2022 Assessment & Plan (1) Ischemic bowel disease: Concern based upon pneumatosis and/or spontaneous perforation. No overt risk factors identified but has voluntary guarding and peritoneal signs. No role for GI evaluation or intervention. Plan -IV Zosyn -Would defer further plans to general surgery -Monitor CBC, lactic acid Supervising Physician Co-Signing Physician Notes I was not involved in this patient's care and was placed as co-signer as on accident, following with [facility] History of Present Illness Reason for Consultation: "abdominal pain, ?enteritis, concerning CT findings" Attending Physician: Misty Alicea MD History of Present Illness Patient is a 56 yo female with PMH of HTN, DM2, GERD, fibromyalgia, & bipolar disorder. She recently had a spinal cord stimulator inserted. She notes she struggled after that to move her bowels. She noted significantly acute onset of generalized abdominal pain associated with nausea without emesis or diarrhea. This prompted her to the ED. A CT scan indicated enteritis, possible bowel ischemia, and extraluminal gas concerning for a contained perforation versus pneumatosis. There was also concern for acute diverticulitis. She has an elevated lactic acid at 2.1 at present and a WBC 21,130. HR 121. She is currently on IV Zosyn. She notes she is having significant abdominal pain. She did have a bowel movement this morning. She notes a recent colonoscopy/EGD but cannot tell me where this happened. No pertinent family history. General surgery is following. Allergies Allergy/AdvReac Type Severity Reaction Status Date / Time Iodinated Contrast Media Allergy Severe throat Verified 07/01/22 15:31 edema Sulfa (Sulfonamide Allergy Severe ANAPHYLAXIS Verified 07/01/22 15:31 Antibiotics) nitrofurantoin Allergy Intermediate Rash Verified 07/01/22 15:31 iodine Allergy Unknown Unknown Verified 07/01/22 15:31 gabapentin AdvReac Severe intensifies Verified 07/01/22 15:31 bipolar depression codeine AdvReac Intermediate Nausea Verified 07/01/22 15:31 Home Medications Medication Instructions Recorded Confirmed Type aripiprazole 20 mg tablet 20 mg PO QAM 06/02/18 07/01/22 History esomeprazole magnesium 20 mg 20 mg PO DAILYBB 06/02/18 07/01/22 History tablet,delayed release (Nexium 24HR) hydroxyzine HCl 50 mg tablet 50 mg PO BID 10/01/18 10/30/22 History trazodone 100 mg tablet 200 mg PO HS 06/02/18 07/01/22 History ondansetron 4 mg disintegrating 4 mg PO Q8H PRN nausea and 03/14/19 07/01/22 Rx tablet vomiting #14 tabs prazosin 2 mg capsule (Minipress) 2 mg PO HS 09/16/20 07/01/22 History prazosin 1 mg capsule (Minipress) 1 mg PO HS 11/06/20 07/01/22 History pregabalin 150 mg capsule 150 mg PO QAM 04/15/21 07/01/22 History baclofen 10 mg tablet 10 mg PO QAM 07/09/21 07/01/22 History pregabalin 225 mg capsule 225 mg PO HS 07/09/21 07/01/22 History clobetasol 0.05 % topical cream 1 applic topical BID PRN AFFECTED 07/01/22 07/01/22 History AREA dextran 70-hypromellose eye drops 1 drp ophthalmic (eye) HS 07/01/22 07/01/22 History lamotrigine 25 mg tablet 50 mg PO QAM 07/01/22 07/01/22 History levothyroxine 175 mcg tablet 175 mcg PO DAILYBB 07/01/22 07/01/22 History metformin 500 mg tablet,extended 500 mg PO QAM 07/01/22 07/01/22 History release 24 hr multivit w-Ca,[id number] 1 tab PO HS 07/01/22 07/01/22 History complex no.223 400 mcg tablet ([facility]) tramadol 50 mg tablet 50 mg PO BID PRN Pain 07/01/22 07/01/22 History Patient History Medical History Anxiety Bipolar disorder Bipolar disorder, unspecified Cervical radiculopathy Depression Diabetes Fibromyalgia GERD (gastroesophageal reflux disease) Hx of concussion Lumbar pain Mood disorder Surgical History H/O knee surgery Hx of cholecystectomy Hx of hysterectomy S/P insertion of spinal cord stimulator Family History Other Diabetes Gallbladder disease Social History Smoking Status: Current every day smoker Tobacco Type: Cigarettes Preferred Language: [place] Communication Ability: Effective marital status: Single Current Living Situation: Alone current occupational status: employed Feels Safe at Home: Yes Assistive Devices: None Review of Systems Review of Systems: All systems reviewed & are unremarkable except as noted in HPI & below Constitutional: no fever and no chills Respiratory: no cough and no dyspnea Cardiovascular: no chest pain Gastrointestinal: + abdominal pain, + change in bowel habits and + constipation; no blood in stools Psychiatric: no problem reported Physical Exam Physical Exam: Awake alert x3, moving all extremities, in moderate distress lying very flat diaphoretic and pale. Pain upon moving the bed, voluntary guarding is noted with hypoactive to absent bowel sounds, pain with light palpation no peripheral edema and peripheral pulses are normal. Tachycardic without evidence of atrial fibrillation lungs are clear abdomen as above Constitutional: well developed Respiratory: normal respiratory effort Cardiovascular: Rate/Rhythm: regular rate Gastrointestinal (Abdomen): Inspection/Auscultation: + abdomen distended and + hypoactive bowel sounds Percussion/Palpation: + abdomen tender Psychiatric: Orientation: alert and oriented x 3 Results & Data ([facility]) Vital Signs (Past 12 Hours) Vital Signs Temp Pulse Pulse Resp BP Pulse Ox O2 Del Method 07/02/22 06:07 36.7 C 121 H 18 144/74 H 90 Nasal Cannula 07/01/22 22:15 115 H 07/02/22 03:23 36.6 C 114 H 20 126/75 90 Room Air O2 Flow Rate 07/02/22 06:07 2 07/01/22 22:15 07/02/22 03:23 Laboratory Results White count 15 on presentation up to 21, BMP unremarkable, H&H unremarkable, lactate from 1.6-2.1 lipase is normal, LFTs are normal. PG Care Time/CCT Total # of Minutes Spent Total Time Spent with Patient: Total time spent is greater than 50% in coordination of care (as documented) at patient's floor/unit and/or counseling patient: Coding Level of Care Code 93414 Inpt Consult Level 5 Diagnoses Ischemic bowel disease K55.9
[2022-07-02 09:29] LABS: Magnesium 1.7 mg/dl (1.7-2.4); Potassium 3.5 mmol/L (3.5-5.1)
--- NOTE | 2022-07-02 09:49 | Surgery Progress Note ---
Date of Service July 02, 2022 Assessment & Plan (1) Abdominal pain: Plan: 56 yr old woman with severe abdominal pain and constipation. CT findings with enteritis, ? small foci of pneumatosis but suboptimal study and she cannot take IV contrast. 07/02/2022 afebrile, tachycardic WBC up to 21k Lactic acid 2.1 from 1.6 Exam with voluntary and involuntary guarding, + peritonitis Plan: Discussed with Dr. Mcgrath who evaluated patient. Plan to take to operating room for ex lap, possible bowel resection, possible ostomy. Discussed risks of procedure and informed consent obtained Keep NPO Hold Heparin Updated hospitalist Dr. Deanne Mcgrath has seen and examined pt, see addendum for further recommendations/plan. Admission and Anticipated Discharge Date Admission Date: July 01, 2022 Subjective patients initially states she is having more pain this morning but then says it is the same as yesterday, rating 8/10. Lower abdominal pain. + nausea no vomiting had a soft bowel movement since admission I saw pt at bedside, pt is still have severe abdominal pain, with WBC 21,000, HR 120, and lactic acid 2.1, pt passe some stool this morning, but the abdominal pain is not released. Review of Systems Constitutional: no fever and no chills Eyes: no problem reported Respiratory: no problem reported Cardiovascular: no problem reported Gastrointestinal: as per Subjective / HPI Neurologic: no problem reported Psychiatric: bipolar, on multiple psych meds Physical Exam Constitutional: + obese and + lethargic; no acute distress and not ill appearing +drowsy Neck: normal visual inspection; + trachea not midline Respiratory: normal respiratory effort, lungs clear to auscultation Cardiovascular: Rate/Rhythm: regular rhythm and + tachycardic Heart Sounds: normal S1 and normal S2 Gastrointestinal (Abdomen): Inspection/Auscultation: abdomen not distended Percussion/Palpation: + abdomen tender, + guarding (involuntary and voluntary guarding, + peritonitis, rectal exam, ) and abdomen soft; abdomen not rigid (rectal exam- no stool in rectum, no blood, ) Skin: no rashes, warm and dry no jaundice Psychiatric: Orientation: alert and oriented x 3 Results & Data ([facility]) Vital Signs (Past 12 Hours) Vital Signs Temp Pulse Pulse Resp BP Pulse Ox O2 Del Method 07/02/22 06:07 36.7 C 121 H 18 144/74 H 90 Nasal Cannula 07/01/22 22:15 115 H 07/02/22 03:23 36.6 C 114 H 20 126/75 90 Room Air O2 Flow Rate 07/02/22 06:07 2 07/01/22 22:15 07/02/22 03:23 Laboratory Results 07/02/22 07/02/22 07/02/22 Range/Units 08:47 07:41 07:37 WBC (4.8-10.8) K/ul RBC (3.93-5.22) M/uL Hgb (12.0-16.0) g/dl Hct (34.1-44.9) % MCV (80.0-100.0) fL MCH (25.0-34.0) pg MCHC (32.0-36.0) g/dL RDW Std Deviation (36.4-46.3) fL RDW Coeff of Arnold (11.5-14.5) % Plt Count (130-400) K/uL MPV (9.4-12.3) fL Immature Gran % (Auto) % Neut % (Auto) % Lymph % (Auto) % [place] % (Auto) % Eos % (Auto) % Baso % (Auto) % Neut # (Auto) (1.4-6.5) K/uL Lymph # (Auto) (1.2-3.4) K/uL [place] # (Auto) (0.24-0.82) K/uL Eos # (Auto) (0-0.50) K/uL Baso # (Auto) (0-0.2) K/uL Immature Gran # (Auto) (0.00-0.02) K/uL Sodium 141 TNP (136-145) mmol/L Potassium 3.5 TNP (3.5-5.1) mmol/L Chloride 108 H (98-107) mmol/L Carbon Dioxide 26 (21-32) mmol/L Anion Gap TNP (3-11) BUN 9 (6-23) mg/dl Creatinine 0.57 L (0.6-1.2) mg/dl Est Cr Clr Drug Dosing 118.6 ml/min Est GFR ( Amer) 121.8 ml/min Est GFR (Non-Af Amer) 105.1 ml/min BUN/Creatinine Ratio 15.8 (10-20) Glucose 133 H (70-99(Fasting)) mg/dl POC Glucose (70-99) mg/dl Lactate 2.1 H* (0.4-2.0) mmol/L Calcium 9.7 (8.5-10.1) mg/dl Magnesium 1.7 TNP Total Bilirubin 0.8 (0.2-1.0) mg/dl AST 29 TNP (13-39) U/L ALT 36 (7-52) U/L Alkaline Phosphatase 66 (34-104) U/L Total Protein 6.2 (6.0-8.3) gm/dl Albumin 3.6 (3.4-5.0) gm/dl Globulin 2.6 (2.5-4.0) gm/dl Albumin/Globulin Ratio 1.4 (0.9-2) Lipase 36 (11-82) U/L TSH (0.300-4.500) uIu/ml Free T4 (0.61-1.60) ng/dl Urine Color Urine Appearance (Clear) Urine pH (4.5-7.5) Ur Specific Dania (1.000-1.030) Urine Protein (Negative) Urine Glucose (UA) (Negative) Urine Ketones (Negative) Urine Blood (Negative) Urine Nitrite (Negative) Urine Bilirubin (Negative) Urine Urobilinogen (Negative) Ur Leukocyte Esterase (Negative) Urine WBC (Auto) (0-5) /hpf Urine RBC (Auto) (0-4) /hpf U Hyaline Cast (Auto) (0-5) /lpf U Epithel Cells (Auto) (0-5) /lpf Urine Bacteria (Auto) (Negative) SARS-CoV-2, RNA, NAAT (NEGATIVE) 07/02/22 07/02/22 07/02/22 Range/Units 07:37 05:16 00:00 WBC 21.13 H (4.8-10.8) K/ul RBC 5.19 (3.93-5.22) M/uL Hgb 15.5 (12.0-16.0) g/dl Hct 47.1 H (34.1-44.9) % MCV 90.8 (80.0-100.0) fL MCH 29.9 (25.0-34.0) pg MCHC 32.9 (32.0-36.0) g/dL RDW Std Deviation 46.5 H (36.4-46.3) fL RDW Coeff of Arnold 13.8 (11.5-14.5) % Plt Count 285 (130-400) K/uL MPV 10.3 (9.4-12.3) fL Immature Gran % (Auto) 0.9 % Neut % (Auto) 88.3 % Lymph % (Auto) 6.6 % [place] % (Auto) 3.6 % Eos % (Auto) 0.2 % Baso % (Auto) 0.4 % Neut # (Auto) 18.65 H (1.4-6.5) K/uL Lymph # (Auto) 1.39 (1.2-3.4) K/uL [place] # (Auto) 0.76 (0.24-0.82) K/uL Eos # (Auto) 0.04 (0-0.50) K/uL Baso # (Auto) 0.09 (0-0.2) K/uL Immature Gran # (Auto) 0.20 H (0.00-0.02) K/uL Sodium (136-145) mmol/L Potassium (3.5-5.1) mmol/L Chloride (98-107) mmol/L Carbon Dioxide (21-32) mmol/L Anion Gap (3-11) BUN (6-23) mg/dl Creatinine (0.6-1.2) mg/dl Est Cr Clr Drug Dosing ml/min Est GFR ( Amer) ml/min Est GFR (Non-Af Amer) ml/min BUN/Creatinine Ratio (10-20) Glucose (70-99(Fasting)) mg/dl POC Glucose 111 H 129 H (70-99) mg/dl Lactate (0.4-2.0) mmol/L Calcium (8.5-10.1) mg/dl Magnesium Total Bilirubin (0.2-1.0) mg/dl AST (13-39) U/L ALT (7-52) U/L Alkaline Phosphatase (34-104) U/L Total Protein (6.0-8.3) gm/dl Albumin (3.4-5.0) gm/dl Globulin (2.5-4.0) gm/dl Albumin/Globulin Ratio (0.9-2) Lipase (11-82) U/L TSH (0.300-4.500) uIu/ml Free T4 (0.61-1.60) ng/dl Urine Color Urine Appearance (Clear) Urine pH (4.5-7.5) Ur Specific [place] (1.000-1.030) Urine Protein (Negative) Urine Glucose (UA) (Negative) Urine Ketones (Negative) Urine Blood (Negative) Urine Nitrite (Negative) Urine Bilirubin (Negative) Urine Urobilinogen (Negative) Ur Leukocyte Esterase (Negative) Urine WBC (Auto) (0-5) /hpf Urine RBC (Auto) (0-4) /hpf U Hyaline Cast (Auto) (0-5) /lpf U Epithel Cells (Auto) (0-5) /lpf Urine Bacteria (Auto) (Negative) SARS-CoV-2, RNA, NAAT (NEGATIVE) 07/01/22 07/01/22 07/01/22 Range/Units 20:55 19:10 18:38 WBC (4.8-10.8) K/ul RBC (3.93-5.22) M/uL Hgb (12.0-16.0) g/dl Hct (34.1-44.9) % MCV (80.0-100.0) fL MCH (25.0-34.0) pg MCHC (32.0-36.0) g/dL RDW Std Deviation (36.4-46.3) fL RDW Coeff of Arnold (11.5-14.5) % Plt Count (130-400) K/uL MPV (9.4-12.3) fL Immature Gran % (Auto) % Neut % (Auto) % Lymph % (Auto) % [place] % (Auto) % Eos % (Auto) % Baso % (Auto) % Neut # (Auto) (1.4-6.5) K/uL Lymph # (Auto) (1.2-3.4) K/uL [place] # (Auto) (0.24-0.82) K/uL Eos # (Auto) (0-0.50) K/uL Baso # (Auto) (0-0.2) K/uL Immature Gran # (Auto) (0.00-0.02) K/uL Sodium (136-145) mmol/L Potassium (3.5-5.1) mmol/L Chloride (98-107) mmol/L Carbon Dioxide (21-32) mmol/L Anion Gap (3-11) BUN (6-23) mg/dl Creatinine (0.6-1.2) mg/dl Est Cr Clr Drug Dosing ml/min Est GFR ( Amer) ml/min Est GFR (Non-Af Amer) ml/min BUN/Creatinine Ratio (10-20) Glucose (70-99(Fasting)) mg/dl POC Glucose 184 H (70-99) mg/dl Lactate (0.4-2.0) mmol/L Calcium (8.5-10.1) mg/dl Magnesium Total Bilirubin (0.2-1.0) mg/dl AST (13-39) U/L ALT (7-52) U/L Alkaline Phosphatase (34-104) U/L Total Protein (6.0-8.3) gm/dl Albumin (3.4-5.0) gm/dl Globulin (2.5-4.0) gm/dl Albumin/Globulin Ratio (0.9-2) Lipase (11-82) U/L TSH (0.300-4.500) uIu/ml Free T4 (0.61-1.60) ng/dl Urine Color Yellow Urine Appearance Clear (Clear) Urine pH 5.5 (4.5-7.5) Ur Specific Dania 1.014 (1.000-1.030) Urine Protein Negative (Negative) Urine Glucose (UA) Negative (Negative) Urine Ketones Negative (Negative) Urine Blood Negative (Negative) Urine Nitrite Negative (Negative) Urine Bilirubin Negative (Negative) Urine Urobilinogen Negative (Negative) Ur Leukocyte Esterase 2+ H (Negative) Urine WBC (Auto) >30 H (0-5) /hpf Urine RBC (Auto) 0-4 (0-4) /hpf U Hyaline Cast (Auto) 1-5 (0-5) /lpf U Epithel Cells (Auto) >30 H (0-5) /lpf Urine Bacteria (Auto) Negative (Negative) SARS-CoV-2, RNA, NAAT NEGATIVE (NEGATIVE) 07/01/22 07/01/22 07/01/22 Range/Units 15:39 11:25 11:25 WBC (4.8-10.8) K/ul RBC (3.93-5.22) M/uL Hgb (12.0-16.0) g/dl Hct (34.1-44.9) % MCV (80.0-100.0) fL MCH (25.0-34.0) pg MCHC (32.0-36.0) g/dL RDW Std Deviation (36.4-46.3) fL RDW Coeff of Arnold (11.5-14.5) % Plt Count (130-400) K/uL MPV (9.4-12.3) fL Immature Gran % (Auto) % Neut % (Auto) % Lymph % (Auto) % [place] % (Auto) % Eos % (Auto) % Baso % (Auto) % Neut # (Auto) (1.4-6.5) K/uL Lymph # (Auto) (1.2-3.4) K/uL [place] # (Auto) (0.24-0.82) K/uL Eos # (Auto) (0-0.50) K/uL Baso # (Auto) (0-0.2) K/uL Immature Gran # (Auto) (0.00-0.02) K/uL Sodium 143 (136-145) mmol/L Potassium 4.0 (3.5-5.1) mmol/L Chloride 108 H (98-107) mmol/L Carbon Dioxide 25 (21-32) mmol/L Anion Gap 10 (3-11) BUN 12 (6-23) mg/dl Creatinine 0.70 (0.6-1.2) mg/dl Est Cr Clr Drug Dosing 93.8 ml/min Est GFR ( Amer) 113.8 ml/min Est GFR (Non-Af Amer) 98.2 ml/min BUN/Creatinine Ratio 17.1 (10-20) Glucose 147 H (70-99(Fasting)) mg/dl POC Glucose (70-99) mg/dl Lactate 1.6 (0.4-2.0) mmol/L Calcium 10.4 H (8.5-10.1) mg/dl Magnesium Total Bilirubin 0.6 (0.2-1.0) mg/dl AST 15 (13-39) U/L ALT 15 (7-52) U/L Alkaline Phosphatase 81 (34-104) U/L Total Protein 7.3 (6.0-8.3) gm/dl Albumin 4.3 (3.4-5.0) gm/dl Globulin 3.0 (2.5-4.0) gm/dl Albumin/Globulin Ratio 1.4 (0.9-2) Lipase 8 L (11-82) U/L TSH 0.028 L (0.300-4.500) uIu/ml Free T4 0.69 (0.61-1.60) ng/dl Urine Color Urine Appearance (Clear) Urine pH (4.5-7.5) Ur Specific [place] (1.000-1.030) Urine Protein (Negative) Urine Glucose (UA) (Negative) Urine Ketones (Negative) Urine Blood (Negative) Urine Nitrite (Negative) Urine Bilirubin (Negative) Urine Urobilinogen (Negative) Ur Leukocyte Esterase (Negative) Urine WBC (Auto) (0-5) /hpf Urine RBC (Auto) (0-4) /hpf U Hyaline Cast (Auto) (0-5) /lpf U Epithel Cells (Auto) (0-5) /lpf Urine Bacteria (Auto) (Negative) SARS-CoV-2, RNA, NAAT (NEGATIVE) 07/01/22 Range/Units 11:25 WBC 15.59 H (4.8-10.8) K/ul RBC 5.79 H (3.93-5.22) M/uL Hgb 17.2 H (12.0-16.0) g/dl Hct 52.9 H (34.1-44.9) % MCV 91.4 (80.0-100.0) fL MCH 29.7 (25.0-34.0) pg MCHC 32.5 (32.0-36.0) g/dL RDW Std Deviation 46.0 (36.4-46.3) fL RDW Coeff of Arnold 13.6 (11.5-14.5) % Plt Count 303 (130-400) K/uL MPV 10.5 (9.4-12.3) fL Immature Gran % (Auto) 0.4 % Neut % (Auto) 88.3 % Lymph % (Auto) 6.2 % [place] % (Auto) 4.7 % Eos % (Auto) 0.1 % Baso % (Auto) 0.3 % Neut # (Auto) 13.77 H (1.4-6.5) K/uL Lymph # (Auto) 0.97 L (1.2-3.4) K/uL [place] # (Auto) 0.73 (0.24-0.82) K/uL Eos # (Auto) 0.02 (0-0.50) K/uL Baso # (Auto) 0.04 (0-0.2) K/uL Immature Gran # (Auto) 0.06 H (0.00-0.02) K/uL Sodium (136-145) mmol/L Potassium (3.5-5.1) mmol/L Chloride (98-107) mmol/L Carbon Dioxide (21-32) mmol/L Anion Gap (3-11) BUN (6-23) mg/dl Creatinine (0.6-1.2) mg/dl Est Cr Clr Drug Dosing ml/min Est GFR ( Amer) ml/min Est GFR (Non-Af Amer) ml/min BUN/Creatinine Ratio (10-20) Glucose (70-99(Fasting)) mg/dl POC Glucose (70-99) mg/dl Lactate (0.4-2.0) mmol/L Calcium (8.5-10.1) mg/dl Magnesium Total Bilirubin (0.2-1.0) mg/dl AST (13-39) U/L ALT (7-52) U/L Alkaline Phosphatase (34-104) U/L Total Protein (6.0-8.3) gm/dl Albumin (3.4-5.0) gm/dl Globulin (2.5-4.0) gm/dl Albumin/Globulin Ratio (0.9-2) Lipase (11-82) U/L TSH (0.300-4.500) uIu/ml Free T4 (0.61-1.60) ng/dl Urine Color Urine Appearance (Clear) Urine pH (4.5-7.5) Ur Specific [place] (1.000-1.030) Urine Protein (Negative) Urine Glucose (UA) (Negative) Urine Ketones (Negative) Urine Blood (Negative) Urine Nitrite (Negative) Urine Bilirubin (Negative) Urine Urobilinogen (Negative) Ur Leukocyte Esterase (Negative) Urine WBC (Auto) (0-5) /hpf Urine RBC (Auto) (0-4) /hpf U Hyaline Cast (Auto) (0-5) /lpf U Epithel Cells (Auto) (0-5) /lpf Urine Bacteria (Auto) (Negative) SARS-CoV-2, RNA, NAAT (NEGATIVE)
--- NOTE | 2022-07-02 10:13 | Hospitalist Progress Note ---
Date of Service July 02, 2022 Assessment & Plan (1) Abdominal pain: Plan: Presented with acute abdominal pain since previous evening and the condition has gotten worse since this morning CT abd with po contrast did show nonspecific enteritis and ?small foci of pn eumatosis differential could be ischemic/inflammatory/infective Patient was started on IVF and IV antibiotics Lactate on presentation was normal but increased this AM Has worsening leukocytosis. Exam concerning for peritonitis Cannot rule out bowel perforation, ischemic bowel Has SIRS. Cannot rule out sepsis at this time Continue IVF Keep NPO Discussed with GI and surgical team. Surgery to take patient to OR today Continue IV zosyn Will follow up surgical findings (2) Bipolar disorder, unspecified: Plan: Keep NPO for now Will resume home meds later (3) Diabetes: Plan: Hold metformin Continue insulin sliding scale per protocol (4) Cervical radiculopathy: (5) S/P insertion of spinal cord stimulator: Plan: Has fibromyalgia and cervical radiculopathy and is status post insertion of a spinal cord stimulator (6) GERD (gastroesophageal reflux disease): Plan: We will hold oral Protonix Continue IV pantoprazole (7) Fibromyalgia: Plan: DVT prophylaxis Hep on hold for OR CODE STATUS Full Admission and Anticipated Discharge Date Admission Date: July 01, 2022 Subjective Patient seen and examined Patient is ill appearing. Reports severe generalized abd pain, dull, constant, not referred Denied fever, chills, nausea, vomiting Reports no BM since admission and no flatus since last night Denied cough, chest pain, shortness of breath Denied dysuria, freq, urgency Physical Exam Constitutional: + ill appearing; no acute distress Eyes: PERRL, conjunctivae normal, anicteric sclerae ENMT: external ear and nose normal, oropharynx normal Respiratory: normal respiratory effort, lungs clear to auscultation Cardiovascular: Rate/Rhythm: regular rhythm and + tachycardic S1 S2 Gastrointestinal (Abdomen): Inspection/Auscultation: abdomen normal to inspection; abdomen not distended Percussion/Palpation: + abdomen tender, + guarding and abdomen soft Musculoskeletal: no cyanosis or clubbing, extremities motor strength 5/5 Neurologic: PERRL, EOMI, accommodation nl, no face palsy, no dysarthria Psychiatric: A+Ox3, euthymic affect Results & Data Results & Data ([facility]) Vital Signs (Past 12 Hours) Vital Signs Temp Pulse Pulse Resp BP Pulse Ox O2 Del Method 07/02/22 06:07 36.7 C 121 H 18 144/74 H 90 Nasal Cannula 07/01/22 22:15 115 H 07/02/22 03:23 36.6 C 114 H 20 126/75 90 Room Air O2 Flow Rate 07/02/22 06:07 2 07/01/22 22:15 07/02/22 03:23 Laboratory Results Abnormal lab results 07/01/22 07/01/22 07/01/22 Range/Units 11:25 11:25 11:25 WBC 15.59 H (4.8-10.8) K/ul RBC 5.79 H (3.93-5.22) M/uL Hgb 17.2 H (12.0-16.0) g/dl Hct 52.9 H (34.1-44.9) % RDW Std Deviation (36.4-46.3) fL Neut # (Auto) 13.77 H (1.4-6.5) K/uL Lymph # (Auto) 0.97 L (1.2-3.4) K/uL Immature Gran # (Auto) 0.06 H (0.00-0.02) K/uL Chloride 108 H (98-107) mmol/L Creatinine (0.6-1.2) mg/dl Glucose 147 H (70-99(Fasting)) mg/dl POC Glucose (70-99) mg/dl Lactate (0.4-2.0) mmol/L Calcium 10.4 H (8.5-10.1) mg/dl Lipase 8 L (11-82) U/L TSH 0.028 L (0.300-4.500) uIu/ml Ur Leukocyte Esterase (Negative) Urine WBC (Auto) (0-5) /hpf U Epithel Cells (Auto) (0-5) /lpf 07/01/22 07/01/22 07/02/22 Range/Units 19:10 20:55 00:00 WBC (4.8-10.8) K/ul RBC (3.93-5.22) M/uL Hgb (12.0-16.0) g/dl Hct (34.1-44.9) % RDW Std Deviation (36.4-46.3) fL Neut # (Auto) (1.4-6.5) K/uL Lymph # (Auto) (1.2-3.4) K/uL Immature Gran # (Auto) (0.00-0.02) K/uL Chloride (98-107) mmol/L Creatinine (0.6-1.2) mg/dl Glucose (70-99(Fasting)) mg/dl POC Glucose 184 H 129 H (70-99) mg/dl Lactate (0.4-2.0) mmol/L Calcium (8.5-10.1) mg/dl Lipase (11-82) U/L TSH (0.300-4.500) uIu/ml Ur Leukocyte Esterase 2+ H (Negative) Urine WBC (Auto) >30 H (0-5) /hpf U Epithel Cells (Auto) >30 H (0-5) /lpf 07/02/22 07/02/22 07/02/22 Range/Units 05:16 07:37 07:37 WBC 21.13 H (4.8-10.8) K/ul RBC (3.93-5.22) M/uL Hgb (12.0-16.0) g/dl Hct 47.1 H (34.1-44.9) % RDW Std Deviation 46.5 H (36.4-46.3) fL Neut # (Auto) 18.65 H (1.4-6.5) K/uL Lymph # (Auto) (1.2-3.4) K/uL Immature Gran # (Auto) 0.20 H (0.00-0.02) K/uL Chloride 108 H (98-107) mmol/L Creatinine 0.57 L (0.6-1.2) mg/dl Glucose 133 H (70-99(Fasting)) mg/dl POC Glucose 111 H (70-99) mg/dl Lactate (0.4-2.0) mmol/L Calcium (8.5-10.1) mg/dl Lipase (11-82) U/L TSH (0.300-4.500) uIu/ml Ur Leukocyte Esterase (Negative) Urine WBC (Auto) (0-5) /hpf U Epithel Cells (Auto) (0-5) /lpf 10/31/22 Range/Units 07:41 WBC (4.8-10.8) K/ul RBC (3.93-5.22) M/uL Hgb (12.0-16.0) g/dl Hct (34.1-44.9) % RDW Std Deviation (36.4-46.3) fL Neut # (Auto) (1.4-6.5) K/uL Lymph # (Auto) (1.2-3.4) K/uL Immature Gran # (Auto) (0.00-0.02) K/uL Chloride (98-107) mmol/L Creatinine (0.6-1.2) mg/dl Glucose (70-99(Fasting)) mg/dl POC Glucose (70-99) mg/dl Lactate 2.1 H* (0.4-2.0) mmol/L Calcium (8.5-10.1) mg/dl Lipase (11-82) U/L TSH (0.300-4.500) uIu/ml Ur Leukocyte Esterase (Negative) Urine WBC (Auto) (0-5) /hpf U Epithel Cells (Auto) (0-5) /lpf
[2022-07-02] MEDS ORDERED: ACETAMINOPHEN 1000 MG/100 ML IV IV ONE (10:34)
--- NOTE | 2022-07-02 10:34 | Anesthesiology Consultation ---
Date of Service July 02, 2022 Assessment & Plan (1) Encounter for pre-operative examination: Chart Review Chart Review: Acceptable Risk for Surgery History Surgery Operation Date: 07/02/22 11:00 Proposed Procedures p Exploratory Laparotomy, Possible Bowel Resection, Possible Ostomy - Khushbu Mcgrath MD Height/Weight Height: 5 ft 3 in Weight: 87.9 kg Allergies Allergy/AdvReac Type Severity Reaction Status Date / Time Iodinated Contrast Media Allergy Severe throat Verified 07/01/22 15:31 edema Sulfa (Sulfonamide Allergy Severe ANAPHYLAXIS Verified 07/01/22 15:31 Antibiotics) nitrofurantoin Allergy Intermediate Rash Verified 07/01/22 15:31 iodine Allergy Unknown Unknown Verified 07/01/22 15:31 gabapentin AdvReac Severe intensifies Verified 07/01/22 15:31 bipolar depression codeine AdvReac Intermediate Nausea Verified 07/01/22 15:31 Medications Home Medications Medication Instructions Recorded Confirmed Last Taken aripiprazole 20 mg tablet 20 mg PO QAM 06/02/18 07/01/22 06/30/22 esomeprazole magnesium 20 mg 20 mg PO DAILYBB 06/02/18 07/01/22 06/30/22 tablet,delayed release (Nexium 24HR) hydroxyzine HCl 50 mg tablet 50 mg PO BID 06/02/18 07/01/22 06/30/22 trazodone 100 mg tablet 200 mg PO HS 06/02/18 07/01/22 06/30/22 ondansetron 4 mg disintegrating 4 mg PO Q8H PRN nausea and 03/14/19 07/01/22 22:00 tablet vomiting #14 tabs 4 mg prazosin 2 mg capsule (Minipress) 2 mg PO HS 09/16/20 07/01/22 06/30/22 prazosin 1 mg capsule (Minipress) 1 mg PO HS 11/06/20 07/01/22 06/30/22 pregabalin 150 mg capsule 150 mg PO QAM 04/15/21 07/01/22 06/30/22 baclofen 10 mg tablet 10 mg PO QAM 07/09/21 07/01/22 06/30/22 pregabalin 225 mg capsule 225 mg PO HS 07/09/21 07/01/22 06/30/22 clobetasol 0.05 % topical cream 1 applic topical BID PRN AFFECTED 07/01/22 07/01/22 Unknown AREA dextran 70-hypromellose eye drops 1 drp ophthalmic (eye) HS 07/01/22 07/01/22 06/30/22 lamotrigine 25 mg tablet 50 mg PO QAM 07/01/22 07/01/22 06/30/22 levothyroxine 175 mcg tablet 175 mcg PO DAILYBB 07/01/22 07/01/22 06/30/22 metformin 500 mg tablet,extended 500 mg PO QAM 07/01/22 07/01/22 06/30/22 release 24 hr multivit w-Ca,[id number]-TD-qlgxkl 1 tab PO HS 07/01/22 07/01/22 06/30/22 complex no.223 400 mcg tablet (Estroven Mood and Memory) tramadol 50 mg tablet 50 mg PO BID PRN Pain 07/01/22 07/01/22 Unknown Active Medications Generic Name Dose Route Start Last Admin Trade Name Freq PRN Reason Stop Dose Admin Aripiprazole 20 mg 07/02/22 09:00 07/02/22 09:10 Aripiprazole 10 Mg Tab PO 08/01/22 08:59 20 mg QAM DASHA Administration Artificial Tears 1 drops 07/01/22 21:05 07/01/22 21:30 Artificial Tears OP 07/31/22 21:04 Not Given HS DASHA Baclofen 10 mg 07/02/22 09:00 07/02/22 09:10 Baclofen 10 Mg Tab PO 08/01/22 08:59 10 mg QAM DASHA Administration Heparin Sodium (Porcine) 5,000 units 07/02/22 09:00 07/02/22 09:11 Heparin Sod 5,000 Unit/0.5 Ml Vial SQ 08/01/22 08:59 5,000 units Q8 DASHA Administration Hydromorphone HCl 0.5 mg 07/01/22 18:42 07/02/22 05:00 Hydromorphone Inj 0.5 Mg/0.5 Ml Syr IV 07/15/22 18:41 0.5 mg Q6H PRN Administration Pain Hydroxyzine HCl 50 mg 07/01/22 21:05 07/02/22 09:10 Hydroxyzine Hcl 25 Mg Tab PO 07/31/22 21:04 50 mg BID DASHA Administration Piperacillin Sod/Tazobactam 120 mls @ 30 mls/hr 07/01/22 22:00 07/02/22 09:16 Sod 4.5 gm/ Dextrose IV 07/03/22 21:59 Infused Q8H DASHA Infusion Protocol Sodium Chloride 1,000 mls @ 125 mls/hr 07/02/22 09:00 07/02/22 09:11 Nss 1000ml IV 08/01/22 08:59 125 mls/hr .Q8H DASHA Administration Insulin Aspart 0 units 07/02/22 00:00 07/02/22 05:34 Insulin Aspart Per Unit SC 08/01/22 00:00 Not Given Q6 DASHA Lamotrigine 50 mg 07/02/22 09:00 07/02/22 09:10 Lamotrigine 25 Mg Tab PO 08/01/22 08:59 50 mg QAM DASHA Administration Levothyroxine Sodium 175 mcg 07/02/22 06:30 07/02/22 05:33 Levothyroxine Sodium 175 Mcg Tablet PO 08/01/22 06:29 Not Given DAILYBB DASHA Prazosin HCl 3 mg 07/01/22 21:05 07/01/22 21:30 Prazosin Hcl 1 Mg Cap PO 07/31/22 21:04 Not Given HS DASHA Pregabalin 150 mg 07/02/22 09:00 07/02/22 09:16 Pregabalin 150 Mg Cap PO 08/01/22 08:59 150 mg QAM DASHA Administration Pregabalin 225 mg 07/01/22 21:05 07/01/22 21:30 Pregabalin 75 Mg Cap PO 07/31/22 21:04 Not Given HS DASHA Past Medical History Medical History Anxiety Bipolar disorder Bipolar disorder, unspecified Cervical radiculopathy Depression Diabetes Fibromyalgia GERD (gastroesophageal reflux disease) Hx of concussion Lumbar pain Mood disorder Past Family History Family History Other Diabetes Gallbladder disease Past Surgical History Surgical History H/O knee surgery Hx of cholecystectomy Hx of hysterectomy S/P insertion of spinal cord stimulator Social History Smoking Status: Current every day smoker tobacco type: cigarettes Physical Exam Vital Signs Last Vital Signs Temp 36.7 C 07/02/22 06:07 Pulse 121 H 07/02/22 06:07 Resp 18 07/02/22 06:07 BP 144/74 H 07/02/22 06:07 Pulse Ox 90 07/02/22 06:07 O2 Del Method 07/02/22 06:07 O2 Flow Rate 2 07/02/22 06:07 Testing Laboratory Results 07/02/22 07:37 07/02/22 08:47 Urine Color Yellow 07/01/22 19:10 Urine Appearance Clear (Clear) 07/01/22 19:10 Urine pH 5.5 (4.5-7.5) 07/01/22 19:10 Ur Specific [place] 1.014 (1.000-1.030) 07/01/22 19:10 Urine Protein Negative (Negative) 07/01/22 19:10 Urine Glucose (UA) Negative (Negative) 07/01/22 19:10 Urine Ketones Negative (Negative) 07/01/22 19:10 Urine Nitrite Negative (Negative) 07/01/22 19:10 Ur Leukocyte Esterase 2+ (Negative) H 07/01/22 19:10 Urine WBC (Auto) >30 /hpf (0-5) H 07/01/22 19:10 Urine RBC (Auto) 0-4 /hpf (0-4) 07/01/22 19:10 U Hyaline Cast (Auto) 1-5 /lpf (0-5) 07/01/22 19:10 U Epithel Cells (Auto) >30 /lpf (0-5) H 07/01/22 19:10 Urine Bacteria (Auto) Negative (Negative) 07/01/22 19:10 07/02/22 07/02/22 05:16 00:00 POC Glucose 111 H 129 H Laboratory Tests 07/02/22 07:37 Creatinine 0.57 L Laboratory Tests 07/02/22 07:41 Lactate 2.1 H* Electrocardiogram Date: 07/01/22 Findings: + poor R wave progression (not new)
[2022-07-02] MEDS ORDERED: fentaNYL citrate 100 MCG/2 ML VIAL ONE (10:36)
[2022-07-02] MEDS ORDERED: SUCCINYLCHOLINE CHLORIDE 20 MG/ML 10 ML VIAL IV ONE (10:36)
[2022-07-02] MEDS ORDERED: LIDOCAINE 2% MPF LOCAL 5 ML VIAL INFIL ONE (10:36)
[2022-07-02] MEDS ORDERED: MIDAZOLAM HCL 1 MG/ML 2ML VIAL ONE (10:36)
[2022-07-02] MEDS ORDERED: PROPOFOL IV EMULSION 10 MG/ML 20 ML VIAL IV ONE (10:36)
--- NOTE | 2022-07-02 10:36 | History & Physical Bridge Note ---
Date of Service July 02, 2022 History & Physical Bridge Note I have examined the patient, reviewed the History & Physical and in the interval since the performance of the History & Physical I have noted the following changes of clinical significance: no changes noted
[2022-07-02] MEDS ORDERED: PROMETHAZINE HCL INJ 25 MG/ML 1 ML VIAL ONE (10:39)
[2022-07-02] MEDS ORDERED: FAMOTIDINE/PF 20 MG/2 ML VIAL IV ONE (10:39)
--- NOTE | 2022-07-02 10:47 | Electrocardiogram Report ---
Test Reason : Blood Pressure : / mmHG Vent. Rate : 138 BPM Atrial Rate : 138 BPM P-R Int : 140 ms QRS Dur : 086 ms QT Int : 282 ms P-R-T Axes : 020 -59 018 degrees QTc Int : 427 ms Sinus tachycardia Left anterior fascicular block Possible Anterolateral infarct (cited on or before 06-NOV-2020) Abnormal ECG When compared with ECG of 09-JUL-2021 12:25, No significant change was found Confirmed by Nikhil Johnston ([id number]) on 07/02/2022 10:47:12 AM Referred By: REFERRED SELF Confirmed By:Ottoniel Johnston
[2022-07-02] MEDS ORDERED: PANTOprazole 40 MG in SYRINGE 0 ML IV SCH (11:00)
[2022-07-02] MEDS ORDERED: BUPIVACAINE 0.5 % 5 MG/1 ML MPF 30ML VIAL ONE (11:11)
[2022-07-02] MEDS ORDERED: LIDOCAINE 1% LOCAL 20 ML VIAL ONE (11:11)
[2022-07-02] MEDS ORDERED: SCOPOLAMINE 1 MG TDSY TD ONE (11:47)
[2022-07-02] MEDS ORDERED: HYDROmorphone INJ 1 MG/ML SYRINGE IV PRN (11:48)
[2022-07-02] MEDS ORDERED: ePHEDrine sulfate 50 MG/ML AMP IV PRN (11:48)
[2022-07-02] MEDS ORDERED: fentaNYL citrate 100 MCG/2 ML VIAL IV PRN (11:48)
[2022-07-02] MEDS ORDERED: ONDANSETRON INJ 2 MG/ML 2 ML VIAL IV PRN (11:48)
[2022-07-02] MEDS ORDERED: ATROPINE SULFATE 0.1 MG/ML 10ML SYR IV PRN (11:48)
[2022-07-02] MEDS ORDERED: KETAMINE 50 MG/5 ML SYRINGE ONE (12:00)
[2022-07-02] MEDS ORDERED: HYDROmorphone INJ 2 MG/ML SYR/VIAL ONE (12:08)
[2022-07-02] MEDS ORDERED: PHENYLEPHRINE HCL 10 MG/ML VIAL ONE (12:17)
[2022-07-02] MEDS ORDERED: LABETALOL HCL IV 5 MG/ML 20ML IV ONE (12:20)
[2022-07-02] MEDS ORDERED: ALBUMIN HUMAN 5% 12.5 GM/250 ML VIAL IV ONE (13:20)
[2022-07-02] MEDS ORDERED: VANCOMYCIN HCL 1000MG/20ML VIAL ONE (13:22)
[2022-07-02] MEDS ORDERED: SUGAMMADEX SODIUM 200 MG/2 ML VIAL IV ONE ×2 (13:54→14:41)
--- NOTE | 2022-07-02 14:31 | Post Operative Brief Note ---
Immediate Post Op Note v1 Date of Surgery July 02, 2022 Pre & Post Diagnosis Operation Date: 07/02/22 11:00 Pre-Op Diagnosis: enteritis and pneumatosis, sepsis Post-Op Diagnosis: enteritis and pneumatosis, sepsis, sigmoid colon perforation I identified the patient and participated in the time-out.: Yes Procedure Operation Date: 07/02/22 11:00 Actual Procedures p Exploratory Laparotomy, sigmoid colon Resection with Ostomy(Not Applicable) - Khushbu Mcgrath MD Surgeon Khushbu Mcgrath MD Occupational Psychologist JESUS ALBERTO Whaley Estimated Blood Loss 30 Findings Consistent with Post-Op Diagnosis peritonitis, sigmoid colon perforation severe contamination, stool in abdominal cavity Fluids 2000ml Specimens sigmoid colon Drains [place]hip Catheter and Teofilo-Reddy Drain (10 Flat Vinicio x2) Anesthesia Type General Complications none Disposition Accompanied Patient To Recovery: Yes
--- NOTE | 2022-07-02 15:54 | XRay Report ---
XR KUB/Abdomen 1 view CLINICAL HISTORY: ng tube placement TECHNIQUE: 1 view of the abdomen was obtained. Comparison: Comparison is made to chest and abdomen radiograph 01/18/2019 FINDINGS: Enteric tube terminates in the stomach. A spinal stimulator is noted. Surgical fabiola are seen. The bowel gas pattern is nonobstructive. A moderate amount of stool is noted within the large bowel. IMPRESSION: Satisfactory position of enteric tube. ACT 112: Negative or not required by law. Electronically signed by: Damir Acevedo M.D. 07/02/2022 3:52 PM
[2022-07-02] MEDS ORDERED: ONDANSETRON 4 MG OD TAB PO PRN (16:39)
[2022-07-02] MEDS ORDERED: HYDROmorphone INJ 0.5 MG/0.5 ML SYR IV PRN (16:39)
[2022-07-02] MEDS ORDERED: traMADol HCL 50 MG TABLET PO PRN (16:39)
--- NOTE | 2022-07-02 16:39 | Anesthesiology Progress Note ---
Date of Service July 02, 2022 Anesthesia Post Procedure Vital Signs Vital Signs: Temp Pulse Pulse Resp BP BP Pulse Ox 07/02/22 16:10 36.5 C 114 H 21 134/79 94 07/02/22 16:00 36.5 C 117 H 15 123/84 92 07/02/22 15:50 36.5 C 116 H 21 151/75 H 92 07/02/22 15:40 36.5 C 117 H 13 108/72 94 07/02/22 15:30 116 H 17 133/80 96 07/02/22 15:20 113 H 5 L 134/74 95 07/02/22 15:10 116 H 11 L 139/85 89 L 07/02/22 15:00 116 H 10 L 138/70 94 07/02/22 14:52 36.4 C L 116 H 12 132/62 96 07/02/22 11:03 36.8 C 118 H 18 129/63 94 07/02/22 06:07 36.7 C 121 H 18 144/74 H 90 07/01/22 22:15 115 H 07/02/22 03:23 36.6 C 114 H 20 126/75 90 07/01/22 21:08 115 H 07/01/22 21:00 37.1 C 119 H 18 128/76 99 07/01/22 20:56 119/63 07/01/22 19:14 120 H 17 125/70 94 O2 Del Method O2 Flow Rate 07/02/22 16:10 Oxymask 6 07/02/22 16:00 Oxymask 6 07/02/22 15:50 Oxymask 6 07/02/22 15:40 Oxymask 7 07/02/22 15:30 Oxymask 9 07/02/22 15:20 Oxymask 9 07/02/22 15:10 Oxymask 9 07/02/22 15:00 Oxymask 9 07/02/22 14:52 Oxymask 9 07/02/22 11:03 Room Air 07/02/22 06:07 Nasal Cannula 2 07/01/22 22:15 07/02/22 03:23 Room Air 07/01/22 21:08 07/01/22 21:00 Nasal Cannula 1 07/01/22 20:56 Nasal Cannula 2 07/01/22 19:14 Nasal Cannula 2 Transfer of Care Handoff Completed per policy Notes Mental Status: alert / awake / arousable and participated in evaluation Patient Amnestic to Procedure: Yes Nausea / Vomiting: adequately controlled Pain: adequately controlled Airway Patency, RR, SpO2: stable & adequate BP & HR: stable & adequate Hydration State: stable & adequate Anesthetic Complications: no major complications apparent and Pt Satisfied with anesthetic care
--- NOTE | 2022-07-02 17:21 | Critical Care Consultation ---
Date of Consultation July 02, 2022 Assessment & Plan (1) Ischemic bowel disease: (2) Peritonitis (acute) generalized: (3) Sepsis: Plan Impression: 56-year-old female status post visceral perforation likely due to ischemic bowel now status post abdominal washout with diverting ostomy. Recommendations: 1. Neurologic: Pain control per general surgery. Will consider restarting the patient's baclofen and Abilify as well as Lamictal once taking p.o. Acute pain consultation may be necessary. 2. Cardiovascular: Severe sepsis with elevated lactate. Source control appears to have been achieved currently. Continue fluid resuscitation. 3. Respiratory: Supplemental oxygen as needed. 4. ID: Peritonitis. Day #2 Zosyn. Continue for now. We will hold antifungal agents. Follow white blood cell count and fever curve. 5. Renal: No acute issues. ICU electrolyte protocol. 6. GI: Perforated sigmoid colon status post resection and ostomy. Follow ostomy output. Wound care consultation for ostomy training. Per surgery. IV PPI until taking p.o. 7. Endocrine: Hold metformin as well as Synthroid given n.p.o. status. May need to replace Synthroid IV if unable to take p.o. in the next day or so. Glycemic control per ICU protocol. 8. Heme-onc: Leukocytosis secondary to infection. Continue to trend for now. DVT prophylaxis with subcu heparin. Patient is critically ill at this point time with significant possibility of clinical deterioration. She will be observed closely in the ICU. Thanks for the opportunity to participating in the care of this patient. Feel free to contact us with questions or concerns History of Present Illness Attending Physician: Misty Alicea MD History of Present Illness Asked by general surgery service to assist in postoperative management of this patient taken to the OR for resection of ischemic bowel with peritonitis. History is obtained from review of the electronic medical record. The patient is emerging from general anesthesia and not able to offer much in the way of clinical history. The patient is a 56-year-old female who presented to the emergency room yesterday with complaints of abdominal pain. She had a CT scan at that point time showing questionable pneumatosis. General surgery consultation was obtained. They discussed options to include surgery versus clinical observation with antibiotics. The patient was observed but her lactate increased and she developed evidence of peritonitis today. She was taken to the OR for exploratory laparotomy. This demonstrated sigmoid colon perforation with severe contamination of the abdominal cavity with yadiel stool in the abdominal cavity. The patient had a diverting ostomy placed. Abdominal washout was performed. 2 MILAGRO drains were placed. She was extubated and returned to the ICU. The patient is currently hemodynamically stable but tachycardic. She is complaining of some abdominal pain. Allergies Allergy/AdvReac Type Severity Reaction Status Date / Time Iodinated Contrast Media Allergy Severe throat Verified 07/01/22 15:31 edema Sulfa (Sulfonamide Allergy Severe ANAPHYLAXIS Verified 07/01/22 15:31 Antibiotics) nitrofurantoin Allergy Intermediate Rash Verified 07/01/22 15:31 iodine Allergy Unknown Unknown Verified 07/01/22 15:31 gabapentin AdvReac Severe intensifies Verified 07/01/22 15:31 bipolar depression codeine AdvReac Intermediate Nausea Verified 07/01/22 15:31 Home Medications Medication Instructions Recorded Confirmed Type aripiprazole 20 mg tablet 20 mg PO QAM 06/02/18 07/01/22 History esomeprazole magnesium 20 mg 20 mg PO DAILYBB 06/02/18 07/01/22 History tablet,delayed release (Nexium 24HR) hydroxyzine HCl 50 mg tablet 50 mg PO BID 06/02/18 07/01/22 History trazodone 100 mg tablet 200 mg PO HS 06/02/18 07/01/22 History ondansetron 4 mg disintegrating 4 mg PO Q8H PRN nausea and 03/14/19 07/01/22 Rx tablet vomiting #14 tabs prazosin 2 mg capsule (Minipress) 2 mg PO HS 09/16/20 07/01/22 History prazosin 1 mg capsule (Minipress) 1 mg PO HS 11/06/20 07/01/22 History pregabalin 150 mg capsule 150 mg PO QAM 04/15/21 07/01/22 History baclofen 10 mg tablet 10 mg PO QAM 07/09/21 07/01/22 History pregabalin 225 mg capsule 225 mg PO HS 07/09/21 07/01/22 History clobetasol 0.05 % topical cream 1 applic topical BID PRN AFFECTED 07/01/22 07/01/22 History AREA dextran 70-hypromellose eye drops 1 drp ophthalmic (eye) HS 07/01/22 07/01/22 History lamotrigine 25 mg tablet 50 mg PO QAM 07/01/22 07/01/22 History levothyroxine 175 mcg tablet 175 mcg PO DAILYBB 07/01/22 07/01/22 History metformin 500 mg tablet,extended 500 mg PO QAM 07/01/22 07/01/22 History release 24 hr multivit w-Ca,oyqwxosb-BY-exxaod 1 tab PO HS 07/01/22 07/01/22 History complex no.223 400 mcg tablet (Estroven Mood and Memory) tramadol 50 mg tablet 50 mg PO BID PRN Pain 07/01/22 07/01/22 History Patient History Medical History Anxiety Bipolar disorder Bipolar disorder, unspecified Cervical radiculopathy Depression Diabetes Fibromyalgia GERD (gastroesophageal reflux disease) Hx of concussion Lumbar pain Mood disorder Surgical History H/O knee surgery Hx of cholecystectomy Hx of hysterectomy S/P insertion of spinal cord stimulator Family History Other Diabetes Gallbladder disease Social History Smoking Status: Current every day smoker Tobacco Type: Cigarettes Preferred Language: Chinese Communication Ability: Effective marital status: Single Current Living Situation: Alone current occupational status: employed Feels Safe at Home: Yes Assistive Devices: None Review of Systems Review of Systems: Unobtainable due to reduced consciousness Physical Exam Constitutional: + ill appearing and + obese Neck: trachea midline, no thyromegaly Respiratory: normal respiratory effort, lungs clear to auscultation Cardiovascular: RRR, no murmur, no edema Gastrointestinal (Abdomen): Midline incision, [address] Ostomy appears pink. Bowel sounds are diminished. She is appropriately tender to palpation Musculoskeletal: Extremities: extremities normal to inspection Skin: no rashes, warm and dry Neurologic: Sedated Lymphatic: no cervical lymphadenopathy Results & Data Results & Data ([facility]) Vital Signs (Past 12 Hours) Vital Signs Temp Pulse Resp BP Pulse Ox O2 Del Method O2 Flow Rate 07/02/22 16:10 36.5 C 114 H 21 134/79 94 Oxymask 6 10/31/22 16:00 36.5 C 117 H 15 123/84 92 Oxymask 6 07/02/22 15:50 36.5 C 116 H 21 151/75 H 92 Oxymask 6 07/02/22 15:40 36.5 C 117 H 13 108/72 94 Oxymask 7 07/02/22 15:30 116 H 17 133/80 96 Oxymask 9 07/02/22 15:20 113 H 5 L 134/74 95 Oxymask 9 07/02/22 15:10 116 H 11 L 139/85 89 L Oxymask 9 07/02/22 15:00 116 H 10 L 138/70 94 Oxymask 9 07/02/22 14:52 36.4 C L 116 H 12 132/62 96 Oxymask 9 07/02/22 11:03 36.8 C 118 H 18 129/63 94 Room Air 07/02/22 06:07 36.7 C 121 H 18 144/74 H 90 Nasal Cannula 2 Critical Care Results & Data Vital Signs (Past 12 Hours) Vital Signs Temp Pulse Resp BP Pulse Ox O2 Del Method O2 Flow Rate 07/02/22 16:10 36.5 C 114 H 21 134/79 94 Oxymask 6 07/02/22 16:00 36.5 C 117 H 15 123/84 92 Oxymask 6 07/02/22 15:50 36.5 C 116 H 21 151/75 H 92 Oxymask 6 07/02/22 15:40 36.5 C 117 H 13 108/72 94 Oxymask 7 07/02/22 15:30 116 H 17 133/80 96 Oxymask 9 07/02/22 15:20 113 H 5 L 134/74 95 Oxymask 9 07/02/22 15:10 116 H 11 L 139/85 89 L Oxymask 9 07/02/22 15:00 116 H 10 L 138/70 94 Oxymask 9 07/02/22 14:52 36.4 C L 116 H 12 132/62 96 Oxymask 9 07/02/22 11:03 36.8 C 118 H 18 129/63 94 Room Air 07/02/22 06:07 36.7 C 121 H 18 144/74 H 90 Nasal Cannula 2 Lab & Micro Results (Past 24 Hours) RBC 5.19 M/uL (3.93-5.22) 07/02/22 WBC 21.13 K/ul (4.8-10.8) H 07/02/22 Hgb 15.5 g/dl (12.0-16.0) 07/02/22 Hct 47.1 % (34.1-44.9) H 07/02/22 MCV 90.8 fL (80.0-100.0) 07/02/22 MCH 29.9 pg (25.0-34.0) 07/02/22 MCHC 32.9 g/dL (32.0-36.0) 07/02/22 RDW Standard Deviation 46.5 fL (36.4-46.3) H 07/02/22 RDW Coefficient of Variation 13.8 % (11.5-14.5) 07/02/22 Plt Count 285 K/uL (130-400) 07/02/22 MPV 10.3 fL (9.4-12.3) 07/02/22 Neutrophils (%) (Auto) 88.3 % 07/02/22 Lymphocytes (%) (Auto) 6.6 % 07/02/22 Monocytes # (Auto) 0.76 K/uL (0.24-0.82) 07/02/22 Eosinophils # (Auto) 0.04 K/uL (0-0.50) 07/02/22 Immature Granulocyte % (Auto) 0.9 % 07/02/22 Neutrophils # (Auto) 18.65 K/uL (1.4-6.5) H 07/02/22 Lymphocytes # (Auto) 1.39 K/uL (1.2-3.4) 07/02/22 Monocytes # (Auto) 0.76 K/uL (0.24-0.82) 07/02/22 Eosinophils # (Auto) 0.04 K/uL (0-0.50) 07/02/22 Basophils # (Auto) 0.09 K/uL (0-0.2) 07/02/22 Immature Granulocyte # (Auto) 0.20 K/uL (0.00-0.02) H 07/02 Na 141 mmol/L (136-145) 07/02/22 K 3.5 mmol/L (3.5-5.1) 07/02/22 Cl 108 mmol/L (98-107) H 07/02/22 CO2 26 mmol/L (21-32) 07/02/22 Anion Gap TNP 07/02/22 BUN 9 mg/dl (6-23) 07/02/22 Creatinine 0.57 mg/dl (0.6-1.2) L 07/02/22 Estimated GFR ( Amer) 121.8 ml/min 07/02/22 Estimated GFR (Non-Af Amer) 105.1 ml/min 07/02/22 BUN/Creatinine Ratio 15.8 (10-20) 07/02/22 Glu 133 mg/dl (70-99(Fasting)) H 07/02/22 Ca 9.7 mg/dl (8.5-10.1) 07/02/22 Total Bilirubin 0.8 mg/dl (0.2-1.0) 07/02/22 AST 29 U/L (13-39) 07/02/22 ALT 36 U/L (7-52) 07/02/22 Alkaline Phosphatase 66 U/L (34-104) 07/02/22 TP 6.2 gm/dl (6.0-8.3) 07/02/22 Albumin 3.6 gm/dl (3.4-5.0) 07/02/22 Globulin 2.6 gm/dl (2.5-4.0) 07/02/22 Albumin/Globulin Ratio 1.4 (0.9-2) 07/02/22 Mg 1.7 mg/dl (1.7-2.4) 07/02/22 08:47 Calcium Level 9.7 mg/dl (8.5-10.1) 07/02/22 07:37 Microbiology 07/01/22 15:45 Aerobic Blood Culture - Preliminary Blood No growth in Aerobic bottle after 24 hours. 07/01/22 15:41 Aerobic Blood Culture - Preliminary Blood No growth in Aerobic bottle after 24 hours. 07/01/22 19:10 Urine Culture - Preliminary Urine,Clean Catch No growth - Less than 1,000 colonies/mL, Final report to follow. Diagnostic Findings (Past 24 Hours) KUB X-Ray 07/02/22 15:35 XR KUB/Abdomen 1 view CLINICAL HISTORY: ng tube placement TECHNIQUE: 1 view of the abdomen was obtained. Comparison: Comparison is made to chest and abdomen radiograph 01/18/2019 FINDINGS: Enteric tube terminates in the stomach. A spinal stimulator is noted. Surgical fabiola are seen. The bowel gas pattern is nonobstructive. A moderate amount of stool is noted within the large bowel. IMPRESSION: Satisfactory position of enteric tube. ACT 112: Negative or not required by law. Electronically signed by: Damir Acevedo M.D. 07/02/2022 3:52 PM I & O Totals 24 Hours 07/01/22 07/02/22 07/03/22 06:59 06:59 06:59 Intake Total 4233.75 / 4233.75 3320 / 3320 Output Total 163 / 163 Balance 4232.75 / 4232.75 3157 / 3157 Cumulative 07/01/22 10:53 thru 07/02/22 16:08 Intake Total 7553.75 Output Total 164 Balance 7389.75 RT Ventilator Mngmt (Last Documented) Ventilator Ordered Settings Respiratory Rate 21 07/02/22 16:10 Ventilator - PT Measurements Respiratory Rate 21 Coding Level of Care Code Critical Care 1st 30-74 mins Diagnoses Ischemic bowel disease K55.9 Peritonitis (acute) generalized K65.0 Sepsis A41.9
[2022-07-02] MEDS ORDERED: CARBOHYDRATES FOR HYPOGLYCEMIA PO PRN (18:36)
[2022-07-02] MEDS ORDERED: GLUCOSE 10 TAB/TUBE PO PRN (18:36)
[2022-07-02] MEDS ORDERED: GLUCOSE 40% GEL 15 GM TUBE PO PRN (18:36)
[2022-07-02] MEDS ORDERED: GLUCAGON FOR INJ 1 MG VIAL SQ PRN (18:36)
[2022-07-02] MEDS ORDERED: DEXTROSE 50% 50 ML SYRINGE IV PRN (18:36)
[2022-07-02] MEDS ORDERED: PIPERACILLIN/TAZOBACTAM 3.375 GM in DEXTROSE 5% 100 ML IV STA (19:03)
[2022-07-02] MEDS: ICU Protocol for HYPERglycemia SCH (19:55)
[2022-07-02] MEDS: PRAZOSIN HCL 1 MG CAP PO SCH (19:57)
[2022-07-02] MEDS: HYDROmorphone INJ 1 MG/ML SYRINGE IV PRN (19:57)
[2022-07-02] MEDS: PREGABALIN 75 MG CAP PO SCH (19:57)
[2022-07-02] MEDS: ICU ELECTROLYTE REPLACEMENT PROTOCOL SCH (20:20)
[2022-07-02] MEDS: ARTIFICIAL TEARS OP SCH (20:29)
[2022-07-02] MEDS ORDERED: [UNRECOGNIZED DRUG - OTHER] PO SCH (21:00)
--- NOTE | 2022-07-02 21:58 | Operative Report (OR) ---
DATE OF PROCEDURE: 07/02/2021. PREOPERATIVE DIAGNOSIS: Sepsis, peritonitis. POSTOPERATIVE DIAGNOSIS: Sepsis, peritonitis, sigmoid colon perforation. OPERATION: Exploratory laparotomy, resection of sigmoid colon, colostomy. SURGEON: Khushbu Mcgrath MD. WIRELESS INTERNET INSTALLER: Elle Larson PA-C. ANESTHESIA: General. ESTIMATED BLOOD LOSS: About 30 mL. FINDINGS: Peritonitis, sigmoid colon perforation, significant contamination, stool inside the abdominal cavity. COMPLICATIONS: None. INDICATIONS FOR THE PROCEDURE: This is a 56-year-old lady who was admitted to the hospital for acute abdominal pain yesterday and today. The patient's condition deteriorated with severe abdominal pain, white count of 21,000 and lactate is 2.1. Also, the patient's heart rate goes up to 120 and based on the clinical significant findings and this worse abdominal pain, I recommended to do exploratory laparotomy, possible bowel resection, possible stoma. I did talk to the patient about the benefit, risk, alternate procedure. I indicated the risks may include, but not limited to, such as bleeding, infection, sepsis, multiple organ failure, DVT, stroke, even , myocardial infarction, incisional hernia. The patient understands. She signed the informed consent and I answered all questions. DETAILS OF PROCEDURE: After we identified the patient and verified the procedure, we brought the patient to the OR, put the patient in the supine position on the OR table. The patient received SCD on bilateral legs to prevent DVT. Also, the patient received 3.375 grams Zosyn IV for prophylactic antibiotic. The patient received general anesthesia without difficulty. The patient also received Blankenship catheter insertion. The patient's abdomen was prepped and draped in routine sterile fashion. After timeout, I made a midline incision and opened fascia, opened peritoneum. Under direct vision, we get in the abdomen. There was significant pus with stool inside the abdominal cavity. So, we researched the perforation of the bowel. We researched from small bowel to large bowel. Then, we found out the patient had sigmoid colon perforation with leak of stool. At this moment, we suctioned all the peritoneal fluid for wound culture and then we mobilized the sigmoid colon and decided to do the sigmoid resection with colostomy. Once we mobilized the sigmoid colon, I used an 80 ARIANE stapler for transection on the proximal sigmoid colon and then I used ARIANE stapler transection on the distal sigmoid colon and then we used the vascular stapler to staple the mesenteric side and then we completely removed the sigmoid colon; rechecked the staple line. No active bleeding and I put one 2-0 Prolene on the proximal rectal end of the staple line and rechecked, no active bleeding. At this moment, we used 1 gram vancomycin plus 1000 ml normal saline to flush the abdomen and suctioned all fluid out. We put two 10-mm MILAGRO drainage on the right side of the abdomen and sutured the MILAGRO on the skin by using 3-0 nylon. Then, we mobilized the proximal descending colon to create colostomy. I made about 1-inch to hold on the left sided abdominal wound and passed two fingers and passed through the descending colon to the abdominal hole. Then, I used 2-0 Vicryl to suture the descending colon to the fascial layer interruptedly and then we used the Bovie. At this moment, rechecked, no active bleeding. Then, we closed the abdomen by using fascial layer by using PDS continuous running, closed subcutaneous layer by using 2-0 Vicryl continuous running, closed skin by using staple. Then, we used the Bovie to open the end of the colon and used 3-0 Vicryl to fix on the skin of the colon to create a colostomy interruptedly and colon color is pink and then we put the dressing on and the colostomy bag on . The patient tolerated the procedure well. All instrument, needle and sponge counts were correct x2 at the end of the case. The patient was transferred to recovery room in stable condition. After the procedure, I did talk to the patient about the OR finding and the procedure we did, she understands. bilingual administrative assistant JESUS ALBERTO Mascorro is necessary , her roles are exposure and attraction, Job ID: [id number] [facility]
[2022-07-02] MEDS: CHECK SCOPOLAMINE PATCH PLACEMENT SCH (23:43)
[2022-07-03] MEDS: HYDROmorphone INJ 1 MG/ML SYRINGE IV PRN ×2 (01:01→07:51)
[2022-07-03] MEDS: PIPERACILLIN/TAZOBACTAM 3.375 GM in DEXTROSE 5% 100 ML IV SCH ×3 (01:02→17:51)
[2022-07-03] MEDS: LACTATED RINGER'S 1,000 ML IV SCH ×3 (02:18→12:30)
[2022-07-03 04:34] LABS: Hematocrit (blood only) 46.8 % (34.1-44.9); Hemoglobin 15.5 g/dl (12.0-16.0); Mean Corpuscular Hemoglobin 30.1 pg (25.0-34.0); Mean Corpuscular Hgb Conc 33.1 g/dL (32.0-36.0); Mean Corpuscular Volume 90.9 fL (80.0-100.0); Mean Platelet Volume 10.4 fL (9.4-12.3); Platelet Count 289 K/uL (130-400); RDW Coefficient of Variation 14.2 % (11.5-14.5); RDW Standard Deviation 47.8 fL (36.4-46.3); Red Blood Count 5.15 M/uL (3.93-5.22); White Blood Count 17.22 K/ul (4.8-10.8)
[2022-07-03 04:58] LABS: Basophils % (auto) 0.6 %; Immature Granulocytes # (auto) 0.07 K/uL (0.00-0.02); Immature Granulocytes % (auto) 0.4 %; Lymphocytes # (auto) 1.57 K/uL (1.2-3.4); Lymphocytes % (auto) 9.1 %; Monocytes # (auto) 0.61 K/uL (0.24-0.82); Monocytes % (auto) 3.5 %; Neutrophils # (auto) 14.87 K/uL (1.4-6.5); Neutrophils % (auto) 86.4 %
[2022-07-03 05:09] LABS: Albumin Globulin Ratio 1.4 (0.9-2); Albumin Level 3.5 gm/dl (3.4-5.0); BUN Creatinine Ratio 16.4 (10-20); Bilirubin Direct 0.2 mg/dl (0-0.2); Bilirubin,Total 0.6 mg/dl (0.2-1.0); Calcium 10.1 mg/dl (8.5-10.1); Creatinine Clr Calc Pharmacy 122.9 ml/min; Est GFR (African American) 123.2 ml/min; Est GFR (Non-African American) 106.3 ml/min; Globulin 2.5 gm/dl (2.5-4.0); Magnesium 1.8 mg/dl (1.7-2.4); Potassium 3.4 mmol/L (3.5-5.1)
[2022-07-03] MEDS: INSULIN ASPART PER UNIT SC SCH ×4 (06:09→23:52)
[2022-07-03] MEDS ORDERED: PANTOprazole 40 MG TAB PO SCH (06:30)
[2022-07-03] MEDS: ICU ELECTROLYTE REPLACEMENT PROTOCOL SCH ×3 (06:41→18:14)
[2022-07-03] MEDS: LEVOTHYROXINE SODIUM 175 MCG TABLET PO SCH (06:42)
[2022-07-03] MEDS: POTASSIUM CHLORIDE / WTR 10 MEQ/100 ML PLCT IV SCH ×8 (07:48→23:38)
[2022-07-03] MEDS: ICU Protocol for HYPERglycemia SCH (07:49)
[2022-07-03] MEDS: CHECK SCOPOLAMINE PATCH PLACEMENT SCH (07:49)
--- NOTE | 2022-07-03 08:17 | Critical Care Progress Note ---
Date of Service July 03, 2022 Assessment & Plan (1) Ischemic bowel disease: (2) Peritonitis (acute) generalized: (3) Sepsis: Plan Impression: 56-year-old female status post visceral perforation likely due to ischemic bowel now status post abdominal washout with diverting ostomy 07/02/2022. 24-hour events: Patient has had intermittent episodes of delirium. She required soft restraint mitts as she was pulling out her NG tube. She has been hemodynamically stable with adequate urine output. Recommendations: 1. Neurologic: Pain control per general surgery. Patient is exhibiting delirium likely secondary to sepsis as well as potentially withdrawal of her underlying medications. Unfortunately, it does not appear that bowel function has been resumed yet however we will try and restart some of her outpatient medications i.e. Abilify, baclofen, lamotrigine and Lyrica. Defer additional narcotics to the general surgery service. Pain consult may be appropriate. Continue restraints as needed to prevent removal of medical devices 2. Cardiovascular: Severe sepsis related to colon perforation. Recheck lactate this morning. 3. Respiratory: Supplemental oxygen as needed. 4. ID: Peritonitis. Day #3 Zosyn. Continue for now. We will hold antifungal agents. White blood cell count improved today. No fevers. Remains intermittently tachycardic. 5. Renal: ICU electrolyte repletion protocol. 6. GI: Perforated sigmoid colon status post resection and ostomy. Follow ostomy output. Wound care consultation for ostomy training. Not much in the way of resumption of bowel function as of yet. Continue IV PPI 7. Endocrine: Holding metformin as well as Synthroid given n.p.o. status. Glycemic control per ICU protocol. We will give 1 dose of Synthroid replacement today in hopes of resumption of bowel function in the next 48 hours 8. Heme-onc: Leukocytosis secondary to infection. Continue to trend for now. DVT prophylaxis with subcu heparin. Patient is critically ill at this point time with significant possibility of clinical deterioration. She will be observed closely in the ICU. She was discussed with the bedside critical care nurse as well as on multidisciplinary rounds. A total of 38 minutes in critical care time was spent in evaluation management stabilization of this patient Admission and Anticipated Discharge Date Admission Date: July 01, 2022 Physical Exam Constitutional: + obese Neck: trachea midline, no thyromegaly Respiratory: normal respiratory effort, lungs clear to auscultation Cardiovascular: RRR, no murmur, no edema Musculoskeletal: Extremities: extremities normal to inspection Skin: no rashes, warm and dry Lymphatic: no cervical lymphadenopathy Results & Data Results & Data ([facility]) Vital Signs (Past 12 Hours) Vital Signs Temp Pulse Resp BP Pulse Ox O2 Del Method O2 Flow Rate 07/03/22 06:30 36.9 C 115 H 19 96 07/03/22 06:30 137/68 07/03/22 06:15 141/77 H 07/03/22 06:15 122 H 18 96 07/03/22 06:00 128 H 17 97 07/03/22 06:00 139/79 07/03/22 05:45 122 H 19 97 07/03/22 05:45 121/79 07/03/22 05:30 144/66 H 07/03/22 05:30 117 H 16 93 07/03/22 05:15 124/69 07/03/22 05:15 118 H 14 96 07/03/22 05:00 131 H 18 95 07/03/22 05:00 123/75 07/03/22 04:45 120 H 22 96 07/03/22 04:45 128/63 07/03/22 04:34 120 H 19 94 07/03/22 04:34 116/59 L 07/03/22 04:00 141 H 25 H 96 07/03/22 04:00 149/68 H 07/03/22 03:45 132/68 07/03/22 03:45 133 H 19 94 07/03/22 03:15 109/63 07/03/22 03:15 122 H 16 93 07/03/22 03:00 124 H 19 93 07/03/22 03:00 121/82 07/03/22 02:47 139/62 07/03/22 02:47 140 H 19 07/03/22 02:31 105/54 L 07/03/22 02:31 128 H 11 L 82 L 07/03/22 02:15 135 H 20 85 L 07/03/22 02:15 115/53 L 07/03/22 02:00 140 H 15 93 07/03/22 02:00 128/86 07/03/22 01:45 133/64 07/03/22 01:45 128 H 17 88 L 07/03/22 01:30 112/78 07/03/22 01:30 129 H 15 91 07/03/22 01:15 147/55 H 07/03/22 01:15 122 H 13 92 07/03/22 01:00 119 H 19 95 07/03/22 01:00 172/72 H 07/03/22 00:45 113 H 18 96 07/03/22 00:45 137/72 07/03/22 00:30 146/73 H 07/03/22 00:30 120 H 17 97 07/03/22 00:15 133/56 L 07/03/22 00:15 124 H 22 94 07/03/22 00:00 37 C 121 H 19 95 07/03/22 00:00 133/63 07/02/22 23:45 153/66 H 07/02/22 23:45 127 H 18 96 07/03/22 00:00 Oxymask 4 07/02/22 23:30 120 H 16 95 07/02/22 23:30 129/57 L 07/02/22 23:15 130/75 07/02/22 23:15 116 H 19 89 L 07/02/22 23:00 122 H 12 95 07/02/22 23:00 133/79 07/02/22 22:45 122 H 18 95 07/02/22 22:45 147/68 H 07/02/22 22:30 114 H 15 97 07/02/22 22:30 152/77 H 07/02/22 22:15 124/98 07/02/22 22:15 118 H 14 97 07/02/22 22:00 116 H 14 94 07/02/22 22:00 36.7 C 156/80 H 07/02/22 21:45 109/62 07/02/22 21:45 118 H 17 96 07/02/22 21:30 127 H 18 92 07/02/22 21:15 117 H 21 94 07/02/22 21:15 159/84 H 07/02/22 21:00 132 H 17 93 07/02/22 21:00 136/94 07/02/22 20:47 133/62 07/02/22 20:47 115 H 14 56 L 07/02/22 20:30 117 H 17 93 07/02/22 20:30 121/76 Critical Care Results & Data Vital Signs (Past 12 Hours) Vital Signs Temp Pulse Resp BP Pulse Ox O2 Del Method O2 Flow Rate 07/03/22 06:30 36.9 C 115 H 19 96 07/03/22 06:30 137/68 07/03/22 06:15 141/77 H 07/03/22 06:15 122 H 18 96 07/03/22 06:00 128 H 17 97 07/03/22 06:00 139/79 07/03/22 05:45 122 H 19 97 07/03/22 05:45 121/79 07/03/22 05:30 144/66 H 07/03/22 05:30 117 H 16 93 07/03/22 05:15 124/69 07/03/22 05:15 118 H 14 96 07/03/22 05:00 131 H 18 95 07/03/22 05:00 123/75 07/03/22 04:45 120 H 22 96 07/03/22 04:45 128/63 07/03/22 04:34 120 H 19 94 07/03/22 04:34 116/59 L 07/03/22 04:00 141 H 25 H 96 07/03/22 04:00 149/68 H 07/03/22 03:45 132/68 07/03/22 03:45 133 H 19 94 07/03/22 03:15 109/63 07/03/22 03:15 122 H 16 93 07/03/22 03:00 124 H 19 93 07/03/22 03:00 121/82 07/03/22 02:47 139/62 07/03/22 02:47 140 H 19 07/03/22 02:31 105/54 L 07/03/22 02:31 128 H 11 L 82 L 07/03/22 02:15 135 H 20 85 L 07/03/22 02:15 115/53 L 07/03/22 02:00 140 H 15 93 07/03/22 02:00 128/86 07/03/22 01:45 133/64 07/03/22 01:45 128 H 17 88 L 07/03/22 01:30 112/78 07/03/22 01:30 129 H 15 91 07/03/22 01:15 147/55 H 07/03/22 01:15 122 H 13 92 07/03/22 01:00 119 H 19 95 07/03/22 01:00 172/72 H 07/03/22 00:45 113 H 18 96 07/03/22 00:45 137/72 07/03/22 00:30 146/73 H 07/03/22 00:30 120 H 17 97 07/03/22 00:15 133/56 L 07/03/22 00:15 124 H 22 94 07/03/22 00:00 37 C 121 H 19 95 07/03/22 00:00 133/63 07/02/22 23:45 153/66 H 07/02/22 23:45 127 H 18 96 07/03/22 00:00 Oxymask 4 07/02/22 23:30 120 H 16 95 07/02/22 23:30 129/57 L 07/02/22 23:15 130/75 07/02/22 23:15 116 H 19 89 L 07/02/22 23:00 122 H 12 95 07/02/22 23:00 133/79 07/02/22 22:45 122 H 18 95 07/02/22 22:45 147/68 H 07/02/22 22:30 114 H 15 97 07/02/22 22:30 152/77 H 07/02/22 22:15 124/98 07/02/22 22:15 118 H 14 97 07/02/22 22:00 116 H 14 94 07/02/22 22:00 36.7 C 156/80 H 07/02/22 21:45 109/62 07/02/22 21:45 118 H 17 96 07/02/22 21:30 127 H 18 92 07/02/22 21:15 117 H 21 94 07/02/22 21:15 159/84 H 07/02/22 21:00 132 H 17 93 07/02/22 21:00 136/94 07/02/22 20:47 133/62 07/02/22 20:47 115 H 14 56 L Lab & Micro Results (Past 24 Hours) RBC 5.15 M/uL (3.93-5.22) 07/03/22 WBC 17.22 K/ul (4.8-10.8) H 07/03/22 Hgb 15.5 g/dl (12.0-16.0) 07/03/22 Hct 46.8 % (34.1-44.9) H 07/03/22 MCV 90.9 fL (80.0-100.0) 07/03/22 MCH 30.1 pg (25.0-34.0) 07/03/22 MCHC 33.1 g/dL (32.0-36.0) 07/03/22 RDW Standard Deviation 47.8 fL (36.4-46.3) H 07/03/22 RDW Coefficient of Variation 14.2 % (11.5-14.5) 07/03/22 Plt Count 289 K/uL (130-400) 07/03/22 MPV 10.4 fL (9.4-12.3) 07/03/22 Neutrophils (%) (Auto) 86.4 % 07/03/22 Lymphocytes (%) (Auto) 9.1 % 07/03/22 Monocytes # (Auto) 0.61 K/uL (0.24-0.82) 07/03/22 Eosinophils # (Auto) 0.00 K/uL (0-0.50) 07/03/22 Immature Granulocyte % (Auto) 0.4 % 07/03/22 Neutrophils # (Auto) 14.87 K/uL (1.4-6.5) H 07/03/22 Lymphocytes # (Auto) 1.57 K/uL (1.2-3.4) 07/03/22 Monocytes # (Auto) 0.61 K/uL (0.24-0.82) 07/03/22 Eosinophils # (Auto) 0.00 K/uL (0-0.50) 07/03/22 Basophils # (Auto) 0.10 K/uL (0-0.2) 07/03/22 Immature Granulocyte # (Auto) 0.07 K/uL (0.00-0.02) H 07/03 Na 140 mmol/L (136-145) 07/03/22 K 3.4 mmol/L (3.5-5.1) L 07/03/22 Cl 106 mmol/L (98-107) 07/03/22 CO2 30 mmol/L (21-32) 07/03/22 Anion Gap 4 (3-11) 07/03/22 BUN 9 mg/dl (6-23) 07/03/22 Creatinine 0.55 mg/dl (0.6-1.2) L 07/03/22 Estimated GFR ( Amer) 123.2 ml/min 07/03/22 Estimated GFR (Non-Af Amer) 106.3 ml/min 07/03/22 BUN/Creatinine Ratio 16.4 (10-20) 07/03/22 Glu 145 mg/dl (70-99(Fasting)) H 07/03/22 Ca 10.1 mg/dl (8.5-10.1) 07/03/22 Phosphorus Level 2.0 mg/dl (2.5-4.9) L 07/03/22 Total Bilirubin 0.6 mg/dl (0.2-1.0) 07/03/22 Direct Bilirubin 0.2 mg/dl (0-0.2) 07/03/22 AST 19 U/L (13-39) 07/03/22 ALT 22 U/L (7-52) 07/03/22 Alkaline Phosphatase 59 U/L (34-104) 07/03/22 TP 6.0 gm/dl (6.0-8.3) 07/03/22 Albumin 3.5 gm/dl (3.4-5.0) 07/03/22 Globulin 2.5 gm/dl (2.5-4.0) 07/03/22 Albumin/Globulin Ratio 1.4 (0.9-2) 07/03/22 Mg 1.8 mg/dl (1.7-2.4) 07/03/22 04:21 Calcium Level 10.1 mg/dl (8.5-10.1) 07/03/22 04:21 Microbiology 07/02/22 Unknown Aerobic and Anaerobic Culture - Preliminary Abdomen, Left Lower Quadrant Pin-point growth present, reincubating. 07/02/22 Unknown Aerobic and Anaerobic Culture - Preliminary Abdomen Pin-point growth present, reincubating. 07/01/22 15:45 Aerobic Blood Culture - Preliminary Blood No growth in Aerobic bottle after 24 hours. Anaerobic Blood Culture - Final 07/01/22 15:41 Aerobic Blood Culture - Preliminary Blood No growth in Aerobic bottle after 24 hours. Anaerobic Blood Culture - Final 07/01/22 19:10 Urine Culture - Preliminary Urine,Clean Catch No growth - Less than 1,000 colonies/mL, Final report to follow. Diagnostic Findings (Past 24 Hours) KUB X-Ray 07/02/22 15:35 XR KUB/Abdomen 1 view CLINICAL HISTORY: ng tube placement TECHNIQUE: 1 view of the abdomen was obtained. Comparison: Comparison is made to chest and abdomen radiograph 01/18/2019 FINDINGS: Enteric tube terminates in the stomach. A spinal stimulator is noted. Surgical fabiola are seen. The bowel gas pattern is nonobstructive. A moderate amount of stool is noted within the large bowel. IMPRESSION: Satisfactory position of enteric tube. ACT 112: Negative or not required by law. Electronically signed by: Damir Acevedo M.D. 07/02/2022 3:52 PM I & O Totals 24 Hours 07/02/22 07/03/22 07/04/22 06:59 06:59 06:59 Intake Total 4233.75 / 4233.75 5345.833 / 5345.833 Output Total 1388 / 1388 Balance 4232.75 / 4232.75 3957.833 / 3957.833 Cumulative 07/01/22 10:53 thru 07/03/22 06:00 Intake Total 9579.583 Output Total 1389 Balance 8190.583 RT Ventilator Mngmt (Last Documented) Ventilator Ordered Settings Respiratory Rate 19 07/03/22 06:30 Ventilator - PT Measurements Respiratory Rate 19 Coding Level of Care Code Critical Care 1st 30-74 mins Diagnoses Ischemic bowel disease K55.9 Peritonitis (acute) generalized K65.0 Sepsis A41.9
[2022-07-03] MEDS ORDERED: metFORMIN HCL ER 500 MG TABCR PO SCH (09:00)
[2022-07-03] MEDS ORDERED: SODIUM PHOSPHATE 3 MMOL/1 ML INFUSION IV STA (09:51)
[2022-07-03] MEDS ORDERED: LEVOTHYROXINE SODIUM 100 MCG in SYRINGE 0 ML IV ONE (10:00)
[2022-07-03] MEDS ORDERED: SODIUM PHOSPHATE 15 MMOL in SODIUM CHLORIDE 0.9% 250 ML IV ONE (10:30)
[2022-07-03] MEDS: PANTOprazole 40 MG in SYRINGE 0 ML IV SCH (10:57)
[2022-07-03] MEDS: MAGNESIUM SULFATE / D5W 1 GM/100 ML BAG IV SCH ×2 (11:02→12:47)
[2022-07-03] MEDS: BACLOFEN 10 MG TAB PO SCH (11:26)
[2022-07-03] MEDS: lamoTRIgine 25 MG TAB PO SCH (11:26)
[2022-07-03] MEDS: hydrOXYzine HCl 25 MG TAB PO SCH ×2 (11:26→20:46)
[2022-07-03] MEDS: PREGABALIN 150 MG CAP PO SCH (11:26)
[2022-07-03] MEDS: ARIPiprazole 10 MG TAB PO SCH (11:26)
--- NOTE | 2022-07-03 11:46 | XRay Report ---
KUB CLINICAL HISTORY: evaluate NGT placement COMPARISON STUDY: CT of the abdomen and pelvis July 01, 2022. KUB July 02, 2022. FINDINGS: Nasogastric tube is coiled within the stomach. Tip projects over the gastric cardia. Skin s taples from laparotomy are noted. Residual contrast within the left colon is noted from prior CT. Mul tiple loops of dilated small bowel are noted. These measure up to 4.4 cm. Stimulator device is noted. IMPRESSION: 1. Nasogastric tube coiled within the stomach. Tip projects over the gastric cardia. 2. Small bowel dilatation. Given recent procedure, this favors a postoperative ileus. A partial small bowel obstruction could appear similar. ACT 112: Negative or not required by law. Electronically signed by: Ruben Torres M.D. 07/03/2022 11:44 AM
--- NOTE | 2022-07-03 12:19 | Surgery Progress Note ---
Date of Service July 03, 2022 Assessment & Plan (1) Abdominal pain: Plan: 56 yr old woman with severe abdominal pain and constipation. CT findings with enteritis, ? small foci of pneumatosis but suboptimal study and she cannot take IV contrast. 07/02/2022 afebrile, tachycardic WBC up to 21k Lactic acid 2.1 from 1.6 Exam with voluntary and involuntary guarding, + peritonitis Plan: Discussed with Dr. Mcgrath who evaluated patient. Plan to take to operating room for ex lap, possible bowel resection, possible ostomy. Discussed risks of procedure and informed consent obtained Keep NPO Hold Heparin Updated hospitalist Dr. Deanne Mcgrath has seen and examined pt, see addendum for further recommendations/plan. 07/03/2022 12:17PM Dr. Mcgrath F/U S/P resection sigmoid colon, stoma, POD 1 stable, continue treatment, repeat labs in morning, decrease dilaudid to 0.5mg iv q4h prn for pain, down IV fluid rate to 100ml /h, will F/U, Admission and Anticipated Discharge Date Admission Date: July 01, 2022 Supervising Physician Co-Signing Physician Notes I was not involved in this patient's care and was placed as co-signer as on accident, following with [facility] Subjective Patient seen and examined Patient is ill appearing. Reports severe generalized abd pain, dull, constant, not referred Denied fever, chills, nausea, vomiting Reports no BM since admission and no flatus since last night Denied cough, chest pain, shortness of breath Denied dysuria, freq, urgency F/U S/P sigmoid colon resection stoma, POD 1 pt is stable now, but pt pulled out NG tube last night, T 37.3, good control incision pain, MILAGRO 280ml, no active bleeding, Review of Systems Constitutional: no fever and no chills Eyes: no problem reported Respiratory: no problem reported Cardiovascular: no problem reported Gastrointestinal: as per Subjective / HPI Neurologic: no problem reported Psychiatric: bipolar, on multiple psych meds Physical Exam Constitutional: WD/WN, vitals as above Eyes: PERRL, conjunctivae normal, anicteric sclerae Neck: trachea midline, no thyromegaly Respiratory: normal respiratory effort, lungs clear to auscultation Cardiovascular: RRR, no murmur, no edema Gastrointestinal (Abdomen): Inspection/Auscultation: abdomen not distended Percussion/Palpation: + abdomen tender, + guarding (involuntary and voluntary guarding, + peritonitis, rectal exam, ) and abdomen soft; abdomen not rigid (rectal exam- no stool in rectum, no blood, ) soft, mild tenderness at incision site, no rebound pain, stoma intact, some liquid stool in bag, 2 MILAGRO intact, BS +, Musculoskeletal: no cyanosis or clubbing, extremities motor strength 5/5 Neurologic: patellar DTR's 2+ bilat, sensation intact Psychiatric: A+Ox3, euthymic affect Results & Data ([facility]) Vital Signs (Past 12 Hours) Vital Signs Temp Pulse Resp BP Pulse Ox O2 Del Method O2 Flow Rate 07/03/22 08:45 92 Oxymask 10 07/03/22 08:53 94 Nasal Cannula, Oxymask 3 07/03/22 07:30 96 Oxymask 8 07/03/22 08:30 139 H 20 90 07/03/22 08:30 134/78 07/03/22 08:00 115 H 17 95 07/03/22 08:00 139/57 L 07/03/22 07:30 103 H 17 96 07/03/22 07:30 129/63 07/03/22 07:00 117 H 17 95 07/03/22 07:00 147/72 H 07/03/22 06:45 122 H 18 96 07/03/22 06:45 138/65 07/03/22 08:00 115 H 07/03/22 08:00 Oxymask 3 07/03/22 08:00 37.3 C 07/03/22 06:30 36.9 C 115 H 19 96 07/03/22 06:30 137/68 07/03/22 06:15 141/77 H 07/03/22 06:15 122 H 18 96 07/03/22 06:00 128 H 17 97 07/03/22 06:00 139/79 07/03/22 05:45 122 H 19 97 07/03/22 05:45 121/79 07/03/22 05:30 144/66 H 07/03/22 05:30 117 H 16 93 07/03/22 05:15 124/69 07/03/22 05:15 118 H 14 96 07/03/22 05:00 131 H 18 95 07/03/22 05:00 123/75 07/03/22 04:45 120 H 22 96 07/03/22 04:45 128/63 07/03/22 04:34 120 H 19 94 07/03/22 04:34 116/59 L 07/03/22 04:00 141 H 25 H 96 07/03/22 04:00 149/68 H 07/03/22 03:45 132/68 07/03/22 03:45 133 H 19 94 07/03/22 03:15 109/63 07/03/22 03:15 122 H 16 93 07/03/22 03:00 124 H 19 93 07/03/22 03:00 121/82 07/03/22 02:47 139/62 07/03/22 02:47 140 H 19 07/03/22 02:31 105/54 L 07/03/22 02:31 128 H 11 L 82 L 07/03/22 02:15 135 H 20 85 L 07/03/22 02:15 115/53 L 07/03/22 02:00 140 H 15 93 07/03/22 02:00 128/86 07/03/22 01:45 133/64 07/03/22 01:45 128 H 17 88 L 07/03/22 01:30 112/78 07/03/22 01:30 129 H 15 91 07/03/22 01:15 147/55 H 07/03/22 01:15 122 H 13 92 07/03/22 01:00 119 H 19 95 07/03/22 01:00 172/72 H 07/03/22 00:45 113 H 18 96 07/03/22 00:45 137/72 07/03/22 00:30 146/73 H 07/03/22 00:30 120 H 17 97 07/03/22 00:15 133/56 L 07/03/22 00:15 124 H 22 94
--- NOTE | 2022-07-03 13:06 | Hospitalist Progress Note ---
Date of Service July 03, 2022 Assessment & Plan (1) Abdominal pain: Plan: Presented with acute abdominal pain since previous evening and the condition has gotten worse since this morning CT abd with po contrast did show nonspecific enteritis and ?small foci of pn eumatosis differential could be ischemic/inflammatory/infective Patient was started on IVF and IV antibiotics Lactate on presentation was normal but increased on 07/02 with worsening leukocytosis Was taken to OR and had ex lab which revealed perforated sigmoid colon s/p sigmoid colon resection and colostomy Continue NPO Monitor for return of bowel activity Continue zosyn Continue ICU care for now Surgery and cyber security specialist on board Delirious episodes likely due to Sepsis +/- withdrawal from home medications Monitor and redirect as needed Plan to resume meds as soon as patient is able to be started on po (2) Fibromyalgia: (3) Bipolar disorder, unspecified: Plan: Keep NPO for now Will resume home meds later (4) Diabetes: Plan: Hold metformin Continue insulin sliding scale per protocol (5) Cervical radiculopathy: (6) S/P insertion of spinal cord stimulator: Plan: Has fibromyalgia and cervical radiculopathy and is status post insertion of a spinal cord stimulator (7) GERD (gastroesophageal reflux disease): Plan: Continue IV pantoprazole (8) Hypothyroid: Plan: Got IV levothyroxine today while still NPO DVT prophylaxis Hep on hold for now CODE STATUS Full Admission and Anticipated Discharge Date Admission Date: July 01, 2022 Subjective Patient seen and examined Was drowsy but arousable Oriented to person and place. Reports abd pain is improving compared to admission. Denied nausea, vomiting Denied any other symptoms at this time. Has been delirious per RN and required hand mitts after pulling NGT On oxymask and NGT Physical Exam Constitutional: + ill appearing; no acute distress Eyes: PERRL, conjunctivae normal, anicteric sclerae ENMT: external ear and nose normal, oropharynx normal NGT Respiratory: normal respiratory effort, lungs clear to auscultation Cardiovascular: Rate/Rhythm: regular rhythm and + tachycardic S1 S2 Gastrointestinal (Abdomen): Inspection/Auscultation: abdomen normal to inspection; abdomen not distended Absent bowel sounds Ostomy in place Drain in situ Musculoskeletal: No pedal edema Neurologic: PERRL, EOMI, accommodation nl, no face palsy, no dysarthria Psychiatric: Orientation: alert, oriented to person and oriented to place; + not oriented to time Genitourinary: Blankenship in situ Results & Data Results & Data ([facility]) Vital Signs (Past 12 Hours) Vital Signs Temp Pulse Resp BP Pulse Ox O2 Del Method O2 Flow Rate 07/03/22 12:30 108 H 21 96 07/03/22 12:30 129/72 07/03/22 12:00 110 H 16 93 07/03/22 12:00 120/76 07/03/22 11:30 115 H 16 100 07/03/22 11:30 132/75 07/03/22 11:00 127 H 24 92 07/03/22 11:00 117/77 07/03/22 10:32 128/53 L 07/03/22 10:32 117 H 18 92 07/03/22 10:30 108 H 18 92 07/03/22 10:00 117 H 27 H 96 07/03/22 10:00 126/78 07/03/22 09:30 127 H 15 91 07/03/22 09:30 141/94 H 07/03/22 09:00 119 H 14 93 07/03/22 09:00 122/64 07/03/22 08:45 92 Oxymask 10 07/03/22 08:53 94 Nasal Cannula, Oxymask 3 07/03/22 07:30 96 Oxymask 8 07/03/22 08:30 139 H 20 90 07/03/22 08:30 134/78 07/03/22 08:00 115 H 17 95 07/03/22 08:00 139/57 L 07/03/22 07:30 103 H 17 96 07/03/22 07:30 129/63 07/03/22 07:00 117 H 17 95 07/03/22 07:00 147/72 H 07/03/22 06:45 122 H 18 96 07/03/22 06:45 138/65 07/03/22 08:00 115 H 07/03/22 08:00 Oxymask 3 07/03/22 08:00 37.3 C 07/03/22 06:30 36.9 C 115 H 19 96 07/03/22 06:30 137/68 07/03/22 06:15 141/77 H 07/03/22 06:15 122 H 18 96 07/03/22 06:00 128 H 17 97 07/03/22 06:00 139/79 07/03/22 05:45 122 H 19 97 07/03/22 05:45 121/79 07/03/22 05:30 144/66 H 07/03/22 05:30 117 H 16 93 07/03/22 05:15 124/69 07/03/22 05:15 118 H 14 96 07/03/22 05:00 131 H 18 95 07/03/22 05:00 123/75 07/03/22 04:45 120 H 22 96 07/03/22 04:45 128/63 07/03/22 04:34 120 H 19 94 07/03/22 04:34 116/59 L 07/03/22 04:00 141 H 25 H 96 07/03/22 04:00 149/68 H 07/03/22 03:45 132/68 07/03/22 03:45 133 H 19 94 07/03/22 03:15 109/63 07/03/22 03:15 122 H 16 93 07/03/22 03:00 124 H 19 93 07/03/22 03:00 121/82 07/03/22 02:47 139/62 07/03/22 02:47 140 H 19 07/03/22 02:31 105/54 L 07/03/22 02:31 128 H 11 L 82 L 07/03/22 02:15 135 H 20 85 L 07/03/22 02:15 115/53 L 07/03/22 02:00 140 H 15 93 07/03/22 02:00 128/86 07/03/22 01:45 133/64 07/03/22 01:45 128 H 17 88 L 07/03/22 01:30 112/78 07/03/22 01:30 129 H 15 91 07/03/22 01:15 147/55 H 07/03/22 01:15 122 H 13 92 Laboratory Results Abnormal lab results 07/02/22 07/02/22 07/02/22 Range/Units 16:47 19:17 23:27 WBC (4.8-10.8) K/ul Hct (34.1-44.9) % RDW Std Deviation (36.4-46.3) fL Neut # (Auto) (1.4-6.5) K/uL Immature Gran # (Auto) (0.00-0.02) K/uL Potassium (3.5-5.1) mmol/L Creatinine (0.6-1.2) mg/dl Glucose (70-99(Fasting)) mg/dl POC Glucose 148 H 132 H (70-99) mg/dl Lactate 2.8 H* (0.4-2.0) mmol/L Phosphorus (2.5-4.9) mg/dl 07/03/22 07/03/22 07/03/22 Range/Units 04:21 04:21 11:45 WBC 17.22 H (4.8-10.8) K/ul Hct 46.8 H (34.1-44.9) % RDW Std Deviation 47.8 H (36.4-46.3) fL Neut # (Auto) 14.87 H (1.4-6.5) K/uL Immature Gran # (Auto) 0.07 H (0.00-0.02) K/uL Potassium 3.4 L (3.5-5.1) mmol/L Creatinine 0.55 L (0.6-1.2) mg/dl Glucose 145 H (70-99(Fasting)) mg/dl POC Glucose 126 H (70-99) mg/dl Lactate (0.4-2.0) mmol/L Phosphorus 2.0 L (2.5-4.9) mg/dl
[2022-07-03] MEDS: HYDROmorphone INJ 0.5 MG/0.5 ML SYR IV PRN (16:52)
[2022-07-03] MEDS: ARTIFICIAL TEARS OP SCH (20:45)
[2022-07-03] MEDS: PRAZOSIN HCL 1 MG CAP PO SCH (20:46)
[2022-07-03] MEDS: PREGABALIN 75 MG CAP PO SCH (20:53)
[2022-07-04] MEDS: PIPERACILLIN/TAZOBACTAM 3.375 GM in DEXTROSE 5% 100 ML IV SCH ×2 (01:32→10:27)
[2022-07-04] MEDS: LACTATED RINGER'S 1,000 ML IV SCH ×2 (01:33→12:37)
[2022-07-04 06:13] LABS: Hematocrit (blood only) 40.3 % (34.1-44.9); Mean Corpuscular Hemoglobin 29.3 pg (25.0-34.0); Mean Corpuscular Hgb Conc 32.3 g/dL (32.0-36.0); Mean Corpuscular Volume 90.8 fL (80.0-100.0); Mean Platelet Volume 10.8 fL (9.4-12.3); Platelet Count 283 K/uL (130-400); RDW Coefficient of Variation 13.1 % (11.5-14.5); RDW Standard Deviation 43.7 fL (36.4-46.3); Red Blood Count 4.44 M/uL (3.93-5.22); White Blood Count 16.89 K/ul (4.8-10.8)
[2022-07-04] MEDS: INSULIN ASPART PER UNIT SC SCH ×4 (06:23→22:24)
[2022-07-04] MEDS: LEVOTHYROXINE SODIUM 175 MCG TABLET PO SCH (06:23)
[2022-07-04 06:44] LABS: Albumin Globulin Ratio 1.2 (0.9-2); Albumin Level 2.8 gm/dl (3.4-5.0); BUN Creatinine Ratio 17.5 (10-20); Basophils # (auto) 0.04 K/uL (0-0.2); Basophils % (auto) 0.2 %; Bilirubin,Total 0.6 mg/dl (0.2-1.0); Calcium 9.5 mg/dl (8.5-10.1); Creatinine Clr Calc Pharmacy 166.5 ml/min; Eosinophils # (auto) 0.03 K/uL (0-0.50); Eosinophils % (auto) 0.2 %; Est GFR (African American) 136.9 ml/min; Est GFR (Non-African American) 118.1 ml/min; Globulin 2.4 gm/dl (2.5-4.0); Immature Granulocytes # (auto) 0.09 K/uL (0.00-0.02); Immature Granulocytes % (auto) 0.5 %; Lymphocytes # (auto) 1.59 K/uL (1.2-3.4); Lymphocytes % (auto) 9.4 %; Monocytes # (auto) 0.94 K/uL (0.24-0.82); Monocytes % (auto) 5.6 %; Neutrophils % (auto) 84.1 %; Potassium 3.9 mmol/L (3.5-5.1); Total Protein 5.2 gm/dl (6.0-8.3)
[2022-07-04] MEDS: ICU ELECTROLYTE REPLACEMENT PROTOCOL SCH ×2 (06:46→11:38)
[2022-07-04] MEDS: POTASSIUM CHLORIDE / WTR 10 MEQ/100 ML PLCT IV SCH ×4 (07:34→10:20)
--- NOTE | 2022-07-04 08:11 | Critical Care Progress Note ---
Date of Service July 04, 2022 Assessment & Plan (1) Ischemic bowel disease: (2) Peritonitis (acute) generalized: (3) Sepsis: Plan Impression: 56-year-old female status post visceral perforation likely due to ischemic bowel now status post abdominal washout with diverting ostomy 07/02/2022. 24-hour events: Delirium much improved. Hemodynamically stable. Pain control adequate. Clinically improving. Recommendations: 1. Neurologic: Pain control per general surgery. Continue Abilify, baclofen, lamotrigine and Lyrica. Defer additional narcotics to the general surgery service. Pain consult may be appropriate. 2. Cardiovascular: Severe sepsis related to colon perforation. Lactate normalized. Heart rate and blood pressure appropriate. 3. Respiratory: Supplemental oxygen as needed. 4. ID: Peritonitis. Day #4 Zosyn. Continue for now. We will hold antifungal agents. White blood cell count improved today. No fevers. Tachycardia resolved 5. Renal: ICU electrolyte repletion protocol. 6. GI: Perforated sigmoid colon status post resection and ostomy. Follow ostomy output. Wound care consultation for ostomy training. Await return of bowel function. Continue IV PPI. Defer nutrition to surgery 7. Endocrine: Holding metformin as well as Synthroid given n.p.o. status. 1 dose of Synthroid given 07/03/2022 IV which should cover her for the next 3 to 4 days. Glycemic control per ICU protocol. 8. Heme-onc: Leukocytosis secondary to infection. Continue to trend for now. DVT prophylaxis with subcu heparin. PT and OT evaluations. Out of bed to chair as tolerated. Recommend discontinuation of Blankenship catheter but will defer to surgery. The patient's critical care issues have resolved. She can transfer out of the ICU back to the hospitalist service. Critical care will sign off. Feel free to contact us with questions or concerns. Admission and Anticipated Discharge Date Admission Date: July 01, 2022 Subjective Patient seen and examined. EMR reviewed and. She is awake and conversant and appears much better today. Restraints have been removed. She states her pain is adequately controlled. She still having minimal output through her ostomy and bowel sounds remain quiet. She is hemodynamically stable. Review of Systems Review of Systems: All systems reviewed & are unremarkable except as noted in Subjective Physical Exam Constitutional: + obese Neck: trachea midline, no thyromegaly Respiratory: normal respiratory effort, lungs clear to auscultation Cardiovascular: RRR, no murmur, no edema Gastrointestinal (Abdomen): Ostomy looks good. Serosanguineous output from the MILAGRO drains. Bowel sounds starting to be present but markedly diminished. Musculoskeletal: Extremities: extremities normal to inspection Skin: no rashes, warm and dry Lymphatic: no cervical lymphadenopathy Results & Data Results & Data ([facility]) Vital Signs (Past 12 Hours) Vital Signs Temp Pulse Resp BP Pulse Ox O2 Del Method O2 Flow Rate 07/04/22 07:00 94 H 16 130/76 94 Oxymask 4 07/04/22 07:00 Oxymask 4 07/04/22 07:00 84 07/04/22 06:00 93 H 22 142/85 H 93 Oxymask 4 07/04/22 05:00 105 H 22 127/79 92 Oxymask 4 07/04/22 04:00 37.4 C 101 H 17 127/71 93 Oxymask 4 07/04/22 03:00 104 H 16 129/67 93 Oxymask 4 07/04/22 02:00 104 H 16 119/75 92 Oxymask 4 07/04/22 01:00 107 H 18 114/67 93 Oxymask 4 07/04/22 00:00 37 C 109 H 17 114/70 94 Oxymask 4 07/03/22 23:00 118 H 19 109/65 93 Oxymask 6 07/03/22 22:00 122 H 18 139/72 91 Oxymask 6 07/03/22 21:00 116 H 19 142/85 H 91 Oxymask 6 Critical Care Results & Data Vital Signs (Past 12 Hours) Vital Signs Temp Pulse Resp BP Pulse Ox O2 Del Method O2 Flow Rate 07/04/22 07:00 94 H 16 130/76 94 Oxymask 4 07/04/22 07:00 Oxymask 4 07/04/22 07:00 84 07/04/22 06:00 93 H 22 142/85 H 93 Oxymask 4 07/04/22 05:00 105 H 22 127/79 92 Oxymask 4 07/04/22 04:00 37.4 C 101 H 17 127/71 93 Oxymask 4 07/04/22 03:00 104 H 16 129/67 93 Oxymask 4 07/04/22 02:00 104 H 16 119/75 92 Oxymask 4 07/04/22 01:00 107 H 18 114/67 93 Oxymask 4 07/04/22 00:00 37 C 109 H 17 114/70 94 Oxymask 4 07/03/22 23:00 118 H 19 109/65 93 Oxymask 6 07/03/22 22:00 122 H 18 139/72 91 Oxymask 6 07/03/22 21:00 116 H 19 142/85 H 91 Oxymask 6 Lab & Micro Results (Past 24 Hours) RBC 4.44 M/uL (3.93-5.22) 07/04/22 WBC 16.89 K/ul (4.8-10.8) H 07/04/22 Hgb 13.0 g/dl (12.0-16.0) 07/04/22 Hct 40.3 % (34.1-44.9) 07/04/22 MCV 90.8 fL (80.0-100.0) 07/04/22 MCH 29.3 pg (25.0-34.0) 07/04/22 MCHC 32.3 g/dL (32.0-36.0) 07/04/22 RDW Standard Deviation 43.7 fL (36.4-46.3) 07/04/22 RDW Coefficient of Variation 13.1 % (11.5-14.5) 07/04/22 Plt Count 283 K/uL (130-400) 07/04/22 MPV 10.8 fL (9.4-12.3) 07/04/22 Neutrophils (%) (Auto) 84.1 % 07/04/22 Lymphocytes (%) (Auto) 9.4 % 07/04/22 Monocytes # (Auto) 0.94 K/uL (0.24-0.82) H 07/04/22 Eosinophils # (Auto) 0.03 K/uL (0-0.50) 07/04/22 Immature Granulocyte % (Auto) 0.5 % 07/04/22 Neutrophils # (Auto) 14.20 K/uL (1.4-6.5) H 07/04/22 Lymphocytes # (Auto) 1.59 K/uL (1.2-3.4) 07/04/22 Monocytes # (Auto) 0.94 K/uL (0.24-0.82) H 07/04/22 Eosinophils # (Auto) 0.03 K/uL (0-0.50) 07/04/22 Basophils # (Auto) 0.04 K/uL (0-0.2) 07/04/22 Immature Granulocyte # (Auto) 0.09 K/uL (0.00-0.02) H 07/04 Na 140 mmol/L (136-145) 07/04/22 K 3.9 mmol/L (3.5-5.1) 07/04/22 Cl 105 mmol/L (98-107) 07/04/22 CO2 28 mmol/L (21-32) 07/04/22 Anion Gap 7 (3-11) 07/04/22 BUN 7 mg/dl (6-23) 07/04/22 Creatinine 0.40 mg/dl (0.6-1.2) L 07/04/22 Estimated GFR ( Amer) 136.9 ml/min 07/04/22 Estimated GFR (Non-Af Amer) 118.1 ml/min 07/04/22 BUN/Creatinine Ratio 17.5 (10-20) 07/04/22 Glu 118 mg/dl (70-99(Fasting)) H 07/04/22 Ca 9.5 mg/dl (8.5-10.1) 07/04/22 Total Bilirubin 0.6 mg/dl (0.2-1.0) 07/04/22 AST 14 U/L (13-39) 07/04/22 ALT 14 U/L (7-52) 07/04/22 Alkaline Phosphatase 61 U/L (34-104) 07/04/22 TP 5.2 gm/dl (6.0-8.3) L 07/04/22 Albumin 2.8 gm/dl (3.4-5.0) L 07/04/22 Globulin 2.4 gm/dl (2.5-4.0) L 07/04/22 Albumin/Globulin Ratio 1.2 (0.9-2) 07/04/22 Calcium Level 9.5 mg/dl (8.5-10.1) 07/04/22 05:38 Microbiology 07/02/22 Unknown Gram Stain - Final Abdomen Aerobic and Anaerobic Culture - Preliminary Escherichia coli 07/01/22 15:45 Aerobic Blood Culture - Preliminary Blood No growth in Aerobic bottle after 48 hours. Anaerobic Blood Culture - Final 07/01/22 15:41 Aerobic Blood Culture - Preliminary Blood No growth in Aerobic bottle after 48 hours. Anaerobic Blood Culture - Final 07/02/22 Unknown Gram Stain - Final Abdomen, Left Lower Quadrant Aerobic and Anaerobic Culture - Preliminary Gram negative bacilli 07/01/22 19:10 Urine Culture - Final Urine,Clean Catch No growth - less than 1,000 colonies/mL. Diagnostic Findings (Past 24 Hours) KUB X-Ray 07/03/22 05:00 KUB CLINICAL HISTORY: evaluate NGT placement COMPARISON STUDY: CT of the abdomen and pelvis July 01, 2022. KUB July 02, 2022. FINDINGS: Nasogastric tube is coiled within the stomach. Tip projects over the gastric cardia. Skin fabiola from laparotomy are noted. Residual contrast within the left colon is noted from prior CT. Multiple loops of dilated small bowel are noted. These measure up to 4.4 cm. Stimulator device is noted. IMPRESSION: 1. Nasogastric tube coiled within the stomach. Tip projects over the gastric cardia. 2. Small bowel dilatation. Given recent procedure, this favors a postoperative ileus. A partial small bowel obstruction could appear similar. ACT 112: Negative or not required by law. Electronically signed by: Ruben Torres M.D. 07/03/2022 11:44 AM I & O Totals 24 Hours 07/03/22 07/04/22 07/05/22 06:59 06:59 06:59 Intake Total 5345.833 / 5345.833 3782.500 / 3782.500 Output Total 1388 / 1388 2130 / 2197 67 / 67 Balance 3957.833 / 3957.833 1652.500 / 1585.500 -67 / -67 Cumulative 07/01/22 10:53 thru 07/04/22 07:00 Intake Total 33298.083 Output Total 3586 Balance 9776.083 RT Ventilator Mngmt (Last Documented) Ventilator Ordered Settings Respiratory Rate 16 07/04/22 07:00 Ventilator - PT Measurements Respiratory Rate 16 Coding Level of Care Code 24375 Subseq Hosp Care Lvl 3 Diagnoses Ischemic bowel disease K55.9 Peritonitis (acute) generalized K65.0 Sepsis A41.9
[2022-07-04 08:38] LABS: Adenovirus F 40/41 PCR Not Detected (NotDetected); Astrovirus PCR Not Detected (NotDetected); Campylobacter PCR Not Detected (NotDetected); Clostridium diff Toxin A/B PCR Not Detected (NotDetected); Cryptosporidium PCR Not Detected (NotDetected); Cyclospora cayetanensis PCR Not Detected (NotDetected); Entamoeba histolytica PCR Not Detected (NotDetected); Enteroaggregative E.coli(EAEC) Not Detected (NotDetected); Enteropathogenic E.coli (EPEC) Not Detected (NotDetected); Enterotoxigenic E.coli (ETEC) Not Detected (NotDetected); Giardia lamblia PCR Not Detected (NotDetected); Norovirus GI/GII PCR Not Detected (NotDetected); Plesiomonas shigelloides PCR Not Detected (NotDetected); Rotavirus A PCR Not Detected (NotDetected); Salmonella PCR Not Detected (NotDetected); Sapovirus PCR Not Detected (NotDetected); Shiga-like Toxin E.coli (STEC) Not Detected (NotDetected); Shigella/Enteroinvasive E.coli Not Detected (NotDetected); Vibrio cholerae PCR Not Detected (NotDetected); Vibrio species PCR Not Detected (NotDetected); Yersinia enterocolitica PCR Not Detected (NotDetected)
--- NOTE | 2022-07-04 09:04 | Surgery Progress Note ---
Date of Service July 04, 2022 Assessment & Plan (1) Peritonitis (acute) generalized: (2) Perforated viscus: Plan POD # 2 s/p ex lap with sigmoid colon resection and end colostomy -afebrile, vss, tachycardic but hemodynamically stable - + ostomy with stool output - no n,v - Leukocytosis trending down (16K today) - adequate urine output Plan: Okay from surgery standpoint to downgrade out of ICU Will discontinue NGT start clear liquids PO Percocet and Tylenol ordered, IV Dilaudid prn severe pain Continue antiemetics discontinue Gonzalez Recommend Lovenox 40 mg SQ daily and SCDs for DVT prophylaxis PT/OT Wound care consult case management consult for discharge planning, need for any home health given colostomy continue harrison drains to bulb suction highly encouraged pt to get OOB to chair and move legs incentive spirometry Dr. Mcgrath has seen and examined pt, agrees with above. Admission and Anticipated Discharge Date Admission Date: July 01, 2022 Subjective feeling better today but drowsy this am abdominal pain is better controlled, about 5/10 no n,v no chest pain/sob Per nurse, ostomy started working after midnight harrison drains with serosanguineous output minimal NGT output this am Physical Exam Constitutional: + obese and + lethargic; no acute distress, not ill appearing, not in distress and not combative Respiratory: normal respiratory effort, lungs clear to auscultation no respiratory distress, no labored breathing and no retractions Cardiovascular: Rate/Rhythm: regular rhythm and + tachycardic Heart Sounds: normal S1 and normal S2 Gastrointestinal (Abdomen): Inspection/Auscultation: abdomen normal to inspection, normal bowel sounds, + abdominal surgical incision (midline clean /dry/intact with fabiola) and + abdominal surgical drain present (HARRISON drain #1 and # 2 with serosanguineous output); abdomen not distended Percussion/Palpation: + abdomen tender (at midline incision) and abdomen soft; no guarding, abdomen not rigid and abdomen not firm LLQ colostomy with liquid brown stool, ostomy slightly edematous but pink without necrosis Skin: no rashes, warm and dry no jaundice Psychiatric: Orientation: alert and oriented x 3 Results & Data ([facility]) Vital Signs (Past 12 Hours) Vital Signs Temp Pulse Resp BP Pulse Ox O2 Del Method O2 Flow Rate 07/04/22 08:00 113 H 16 137/87 92 Oxymask 3 07/04/22 08:00 36.9 C 07/04/22 07:00 94 H 16 130/76 94 Oxymask 4 07/04/22 07:00 Oxymask 4 07/04/22 07:00 84 07/04/22 06:00 93 H 22 142/85 H 93 Oxymask 4 07/04/22 05:00 105 H 22 127/79 92 Oxymask 4 07/04/22 04:00 37.4 C 101 H 17 127/71 93 Oxymask 4 07/04/22 03:00 104 H 16 129/67 93 Oxymask 4 07/04/22 02:00 104 H 16 119/75 92 Oxymask 4 07/04/22 01:00 107 H 18 114/67 93 Oxymask 4 07/04/22 00:00 37 C 109 H 17 114/70 94 Oxymask 4 07/03/22 23:00 118 H 19 109/65 93 Oxymask 6 07/03/22 22:00 122 H 18 139/72 91 Oxymask 6 07/03/22 21:00 116 H 19 142/85 H 91 Oxymask 6 Laboratory Results 07/04/22 07/04/22 07/04/22 Range/Units 06:30 05:42 05:38 WBC 16.89 H (4.8-10.8) K/ul RBC 4.44 (3.93-5.22) M/uL Hgb 13.0 (12.0-16.0) g/dl Hct 40.3 (34.1-44.9) % MCV 90.8 (80.0-100.0) fL MCH 29.3 (25.0-34.0) pg MCHC 32.3 (32.0-36.0) g/dL RDW Std Deviation 43.7 (36.4-46.3) fL RDW Coeff of Arnold 13.1 (11.5-14.5) % Plt Count 283 (130-400) K/uL MPV 10.8 (9.4-12.3) fL Immature Gran % (Auto) 0.5 % Neut % (Auto) 84.1 % Lymph % (Auto) 9.4 % Ford % (Auto) 5.6 % Eos % (Auto) 0.2 % Baso % (Auto) 0.2 % Neut # (Auto) 14.20 H (1.4-6.5) K/uL Lymph # (Auto) 1.59 (1.2-3.4) K/uL Ford # (Auto) 0.94 H (0.24-0.82) K/uL Eos # (Auto) 0.03 (0-0.50) K/uL Baso # (Auto) 0.04 (0-0.2) K/uL Immature Gran # (Auto) 0.09 H (0.00-0.02) K/uL Sodium (136-145) mmol/L Potassium (3.5-5.1) mmol/L Chloride (98-107) mmol/L Carbon Dioxide (21-32) mmol/L Anion Gap (3-11) BUN (6-23) mg/dl Creatinine (0.6-1.2) mg/dl Est Cr Clr Drug Dosing ml/min Est GFR ( Amer) ml/min Est GFR (Non-Af Amer) ml/min BUN/Creatinine Ratio (10-20) Glucose (70-99(Fasting)) mg/dl POC Glucose 117 H (70-99) mg/dl Lactate (0.4-2.0) mmol/L Calcium (8.5-10.1) mg/dl Total Bilirubin (0.2-1.0) mg/dl AST (13-39) U/L ALT (7-52) U/L Alkaline Phosphatase (34-104) U/L Total Protein (6.0-8.3) gm/dl Albumin (3.4-5.0) gm/dl Globulin (2.5-4.0) gm/dl Albumin/Globulin Ratio (0.9-2) Stl C. cayetanensis PCR Not Detected (NotDetected) Stool Rotavirus A PCR Not Detected (NotDetected) Stl Adenov F 40/41 PCR Not Detected (NotDetected) Stool Astrovirus (PCR) Not Detected (NotDetected) Stool Campylobacter PCR Not Detected (NotDetected) Stl C. diff Tox B Gene Cancelled Stl C. diff Tox A/B PCR Not Detected (NotDetected) Stool Cryptosporidium PCR Not Detected (NotDetected) Stl E.coli Shiga Tox PCR Not Detected (NotDetected) Stl Enterotoxigenic E PCR Not Detected (NotDetected) Stool EPEC (PCR) Not Detected (NotDetected) Stool EAEC (PCR) Not Detected (NotDetected) Stl E. histolytica PCR Not Detected (NotDetected) Stool Giardia Lamblia PCR Not Detected (NotDetected) Stool Salmonella PCR Not Detected (NotDetected) Stool Sapovirus (PCR) Not Detected (NotDetected) Stl P. shigelloides PCR Not Detected (NotDetected) Stl Shigella/EIEC PCR Not Detected (NotDetected) St Y.enterocolitica PCR Not Detected (NotDetected) Stool Vibrio (PCR) Not Detected (NotDetected) Stl Vibrio cholerae PCR Not Detected (NotDetected) Stl Norovirus GI/GII PCR Not Detected (NotDetected) 07/04/22 07/03/22 07/03/22 Range/Units 05:38 23:44 17:36 WBC (4.8-10.8) K/ul RBC (3.93-5.22) M/uL Hgb (12.0-16.0) g/dl Hct (34.1-44.9) % MCV (80.0-100.0) fL MCH (25.0-34.0) pg MCHC (32.0-36.0) g/dL RDW Std Deviation (36.4-46.3) fL RDW Coeff of Arnold (11.5-14.5) % Plt Count (130-400) K/uL MPV (9.4-12.3) fL Immature Gran % (Auto) % Neut % (Auto) % Lymph % (Auto) % Ford % (Auto) % Eos % (Auto) % Baso % (Auto) % Neut # (Auto) (1.4-6.5) K/uL Lymph # (Auto) (1.2-3.4) K/uL Ford # (Auto) (0.24-0.82) K/uL Eos # (Auto) (0-0.50) K/uL Baso # (Auto) (0-0.2) K/uL Immature Gran # (Auto) (0.00-0.02) K/uL Sodium 140 (136-145) mmol/L Potassium 3.9 3.8 (3.5-5.1) mmol/L Chloride 105 (98-107) mmol/L Carbon Dioxide 28 (21-32) mmol/L Anion Gap 7 (3-11) BUN 7 (6-23) mg/dl Creatinine 0.40 L (0.6-1.2) mg/dl Est Cr Clr Drug Dosing 166.5 ml/min Est GFR ( Amer) 136.9 ml/min Est GFR (Non-Af Amer) 118.1 ml/min BUN/Creatinine Ratio 17.5 (10-20) Glucose 118 H (70-99(Fasting)) mg/dl POC Glucose 99 (70-99) mg/dl Lactate (0.4-2.0) mmol/L Calcium 9.5 (8.5-10.1) mg/dl Total Bilirubin 0.6 (0.2-1.0) mg/dl AST 14 (13-39) U/L ALT 14 (7-52) U/L Alkaline Phosphatase 61 (34-104) U/L Total Protein 5.2 L (6.0-8.3) gm/dl Albumin 2.8 L (3.4-5.0) gm/dl Globulin 2.4 L (2.5-4.0) gm/dl Albumin/Globulin Ratio 1.2 (0.9-2) Stl C. cayetanensis PCR (NotDetected) Stool Rotavirus A PCR (NotDetected) Stl Adenov F 40/41 PCR (NotDetected) Stool Astrovirus (PCR) (NotDetected) Stool Campylobacter PCR (NotDetected) Stl C. diff Tox B Gene Stl C. diff Tox A/B PCR (NotDetected) Stool Cryptosporidium PCR (NotDetected) Stl E.coli Shiga Tox PCR (NotDetected) Stl Enterotoxigenic E PCR (NotDetected) Stool EPEC (PCR) (NotDetected) Stool EAEC (PCR) (NotDetected) Stl E. histolytica PCR (NotDetected) Stool Giardia Lamblia PCR (NotDetected) Stool Salmonella PCR (NotDetected) Stool Sapovirus (PCR) (NotDetected) Stl P. shigelloides PCR (NotDetected) Stl Shigella/EIEC PCR (NotDetected) St Y.enterocolitica PCR (NotDetected) Stool Vibrio (PCR) (NotDetected) Stl Vibrio cholerae PCR (NotDetected) Stl Norovirus GI/GII PCR (NotDetected) 07/03/22 07/03/22 07/03/22 Range/Units 16:57 11:45 09:23 WBC (4.8-10.8) K/ul RBC (3.93-5.22) M/uL Hgb (12.0-16.0) g/dl Hct (34.1-44.9) % MCV (80.0-100.0) fL MCH (25.0-34.0) pg MCHC (32.0-36.0) g/dL RDW Std Deviation (36.4-46.3) fL RDW Coeff of Arnold (11.5-14.5) % Plt Count (130-400) K/uL MPV (9.4-12.3) fL Immature Gran % (Auto) % Neut % (Auto) % Lymph % (Auto) % Ford % (Auto) % Eos % (Auto) % Baso % (Auto) % Neut # (Auto) (1.4-6.5) K/uL Lymph # (Auto) (1.2-3.4) K/uL Ford # (Auto) (0.24-0.82) K/uL Eos # (Auto) (0-0.50) K/uL Baso # (Auto) (0-0.2) K/uL Immature Gran # (Auto) (0.00-0.02) K/uL Sodium (136-145) mmol/L Potassium (3.5-5.1) mmol/L Chloride (98-107) mmol/L Carbon Dioxide (21-32) mmol/L Anion Gap (3-11) BUN (6-23) mg/dl Creatinine (0.6-1.2) mg/dl Est Cr Clr Drug Dosing ml/min Est GFR ( Amer) ml/min Est GFR (Non-Af Amer) ml/min BUN/Creatinine Ratio (10-20) Glucose (70-99(Fasting)) mg/dl POC Glucose 93 126 H (70-99) mg/dl Lactate 1.9 (0.4-2.0) mmol/L Calcium (8.5-10.1) mg/dl Total Bilirubin (0.2-1.0) mg/dl AST (13-39) U/L ALT (7-52) U/L Alkaline Phosphatase (34-104) U/L Total Protein (6.0-8.3) gm/dl Albumin (3.4-5.0) gm/dl Globulin (2.5-4.0) gm/dl Albumin/Globulin Ratio (0.9-2) Stl C. cayetanensis PCR (NotDetected) Stool Rotavirus A PCR (NotDetected) Stl Adenov F PCR (NotDetected) Stool Astrovirus (PCR) (NotDetected) Stool Campylobacter PCR (NotDetected) Stl C. diff Tox B Gene Stl C. diff Tox A/B PCR (NotDetected) Stool Cryptosporidium PCR (NotDetected) Stl E.coli Shiga Tox PCR (NotDetected) Stl Enterotoxigenic E PCR (NotDetected) Stool EPEC (PCR) (NotDetected) Stool EAEC (PCR) (NotDetected) Stl E. histolytica PCR (NotDetected) Stool Giardia Lamblia PCR (NotDetected) Stool Salmonella PCR (NotDetected) Stool Sapovirus (PCR) (NotDetected) Stl P. shigelloides PCR (NotDetected) Stl Shigella/EIEC PCR (NotDetected) St Y.enterocolitica PCR (NotDetected) Stool Vibrio (PCR) (NotDetected) Stl Vibrio cholerae PCR (NotDetected) Stl Norovirus GI/GII PCR (NotDetected) Microbiology 07/02/22 Unknown Gram Stain - Final Abdomen, Left Lower Quadrant Aerobic and Anaerobic Culture - Preliminary Escherichia coli 07/02/22 Unknown Gram Stain - Final Abdomen Aerobic and Anaerobic Culture - Preliminary Escherichia coli 07/01/22 15:45 Aerobic Blood Culture - Preliminary Blood No growth in Aerobic bottle after 48 hours. Anaerobic Blood Culture - Final 07/01/22 15:41 Aerobic Blood Culture - Preliminary Blood No growth in Aerobic bottle after 48 hours. Anaerobic Blood Culture - Final 07/01/22 19:10 Urine Culture - Final Urine,Clean Catch No growth - less than 1,000 colonies/mL.
[2022-07-04] MEDS: ARIPiprazole 10 MG TAB PO SCH (09:49)
[2022-07-04] MEDS: lamoTRIgine 25 MG TAB PO SCH (09:50)
[2022-07-04] MEDS: PREGABALIN 150 MG CAP PO SCH (09:50)
[2022-07-04] MEDS: hydrOXYzine HCl 25 MG TAB PO SCH ×2 (09:50→20:34)
[2022-07-04] MEDS: BACLOFEN 10 MG TAB PO SCH (09:50)
[2022-07-04] MEDS: ICU Protocol for HYPERglycemia SCH (09:51)
[2022-07-04] MEDS: ENOXAPARIN INJ 40 MG/0.4 ML SYR SQ SCH (10:20)
[2022-07-04] MEDS: PANTOprazole 40 MG in SYRINGE 0 ML IV SCH (10:21)
[2022-07-04] MEDS: HYDROmorphone INJ 0.5 MG/0.5 ML SYR IV PRN ×2 (10:30→14:47)
[2022-07-04 11:16] LABS: Magnesium 2.1 mg/dl (1.7-2.4); Phosphorus 1.5 mg/dl (2.5-4.9)
[2022-07-04] MEDS ORDERED: SODIUM PHOSPHATE 3 MMOL/1 ML INFUSION IV STA (11:40)
[2022-07-04] MEDS ORDERED: SODIUM PHOSPHATE 21 MMOL in SODIUM CHLORIDE 0.9% 500 ML IV ONE (12:00)
[2022-07-04] MEDS: oxyCODONE/ACETAMINOPHEN 5mg/325mg TAB PO PRN ×2 (12:38→18:36)
--- NOTE | 2022-07-04 14:43 | Hospitalist Progress Note ---
Date of Service July 04, 2022 Assessment & Plan (1) Abdominal pain: Plan: Presented with worsening acute abdominal pain CT abd/pelvis with po contrast did show nonspecific enteritis and ?small foci of pneumatosis differential could be ischemic/inflammatory/infective Lactate on presentation was normal but increased on 07/02 with worsening leukocytosis Patient was started on IVF and IV antibiotics Lactate on presentation was normal but increased on 07/02 with worsening leukocytosis Surgery on board POD #2 exp lap which revealed perforated sigmoid colon s/p sigmoid colon resection and colostomy performed by General surgery NGT removed today and ostomy WBC 16K today Continue IV abx with Zosyn Started on clear liquid diet and tolerated Clinically improved Continue monitor CBC Ok from [employer] and surgery transfer out of the ICU (2) Electrolyte imbalance: Plan: Phosphorus 1.5 today Phos replaced Continue monitor electrolytes (3) Fibromyalgia: (4) Bipolar disorder, unspecified: Plan: Will resume home meds since patient able to tolerate clear liquid (5) Diabetes: Plan: Continue to hold metformin Continue insulin sliding scale per protocol Will check hba1c (6) Cervical radiculopathy: (7) S/P insertion of spinal cord stimulator: Plan: Has fibromyalgia and cervical radiculopathy and is status post insertion of a spinal cord stimulator (8) GERD (gastroesophageal reflux disease): Plan: Currently IV pantoprazole, will transition to po (9) Hypothyroid: Plan: Currently on IV levothyroxine, Will transition to PO DVT prophylaxis Will change to Lovenox subq CODE STATUS Full Admission and Anticipated Discharge Date Admission Date: July 01, 2022 Subjective Pt was seen and examined for postop follow up for exp lap with sigmoid colon resection and end colostomy Lying in bed with no acute distress She said that she feels slightly better today NGT was removed and she tolerated clear liquid diet Denies any chest pain, palpitation, dizziness and fever Review of Systems Review of Systems: All systems reviewed & are unremarkable except as noted in Subjective Physical Exam Physical Exam: General- No acute distress Head- atraumatic Eyes- PERRL, EOMI, ENT- oropharynx clear, NGT removed Neck- supple, no JVD Lungs- clear to auscultation Heart- regular rhythm; no murmur Abdomen- normal bowel sound, + abdominal surgical incision (midline clean/dry/intact with fabiola) and + abdominal surgical drain present, +Ostomy sealed in place with brown liquid stool with no leakage Extremities- no calf tenderness Neuro- alert, oriented x 3; PERRL, EOMI; no facial palsy; no dysarthria Skin- warm & dry Results & Data Results & Data ([facility]) Vital Signs (Past 12 Hours) Vital Signs Temp Pulse Resp BP Pulse Ox O2 Del Method O2 Flow Rate 07/04/22 12:00 112 H 22 112/92 94 Nasal Cannula 4 07/04/22 11:00 105 H 19 118/71 93 Nasal Cannula 4 07/04/22 12:00 36.9 C 07/04/22 10:39 99 H 20 131/71 92 Nasal Cannula 4 07/04/22 10:00 96 H 20 124/94 89 L Oxymask 3 07/04/22 09:00 82 23 130/87 93 Oxymask 3 07/04/22 08:00 113 H 16 137/87 92 Oxymask 3 07/04/22 08:00 36.9 C 07/04/22 07:00 94 H 16 130/76 94 Oxymask 4 07/04/22 07:00 Oxymask 4 07/04/22 07:00 84 07/04/22 06:00 93 H 22 142/85 H 93 Oxymask 4 07/04/22 05:00 105 H 22 127/79 92 Oxymask 4 07/04/22 04:00 37.4 C 101 H 17 127/71 93 Oxymask 4 07/04/22 03:00 104 H 16 129/67 93 Oxymask 4
[2022-07-04] MEDS ORDERED: Nursing to Pharmacy Communication SCH (16:00)
[2022-07-04] MEDS: AMPICILLIN/SULBACTAM SOD 3,000 MG in 0.9 % SODIUM CHLORIDE 100 ML IV SCH (17:53)
[2022-07-04] MEDS: PRAZOSIN HCL 1 MG CAP PO SCH (20:34)
[2022-07-04] MEDS: PREGABALIN 75 MG CAP PO SCH (20:35)
[2022-07-04] MEDS: ARTIFICIAL TEARS OP SCH (20:35)
[2022-07-05] MEDS: AMPICILLIN/SULBACTAM SOD 3,000 MG in 0.9 % SODIUM CHLORIDE 100 ML IV SCH ×4 (00:36→18:18)
[2022-07-05] MEDS: LACTATED RINGER'S 1,000 ML IV SCH ×2 (05:24→20:48)
[2022-07-05] MEDS: LEVOTHYROXINE SODIUM 175 MCG TABLET PO SCH (05:32)
[2022-07-05 06:32] LABS: Basophils # (auto) 0.05 K/uL (0-0.2); Basophils % (auto) 0.3 %; Eosinophils # (auto) 0.21 K/uL (0-0.50); Eosinophils % (auto) 1.3 %; Hematocrit (blood only) 36.7 % (34.1-44.9); Hemoglobin 12.4 g/dl (12.0-16.0); Immature Granulocytes # (auto) 0.17 K/uL (0.00-0.02); Immature Granulocytes % (auto) 1.1 %; Lymphocytes # (auto) 2.12 K/uL (1.2-3.4); Lymphocytes % (auto) 13.5 %; Mean Corpuscular Hemoglobin 29.8 pg (25.0-34.0); Mean Corpuscular Hgb Conc 33.8 g/dL (32.0-36.0); Mean Corpuscular Volume 88.2 fL (80.0-100.0); Mean Platelet Volume 10.3 fL (9.4-12.3); Monocytes # (auto) 1.17 K/uL (0.24-0.82); Monocytes % (auto) 7.5 %; Neutrophils # (auto) 11.96 K/uL (1.4-6.5); Neutrophils % (auto) 76.3 %; Platelet Count 290 K/uL (130-400); RDW Coefficient of Variation 14.1 % (11.5-14.5); RDW Standard Deviation 45.3 fL (36.4-46.3); Red Blood Count 4.16 M/uL (3.93-5.22); White Blood Count 15.68 K/ul (4.8-10.8)
[2022-07-05 06:50] LABS: Albumin Globulin Ratio 1.1 (0.9-2); Albumin Level 2.6 gm/dl (3.4-5.0); BUN Creatinine Ratio 18.2 (10-20); Bilirubin,Total 0.5 mg/dl (0.2-1.0); Calcium 9.1 mg/dl (8.5-10.1); Creatinine Clr Calc Pharmacy 202.6 ml/min; Est GFR (African American) 145.8 ml/min; Est GFR (Non-African American) 125.8 ml/min; Globulin 2.4 gm/dl (2.5-4.0); Phosphorus 2.3 mg/dl (2.5-4.9); Potassium 3.5 mmol/L (3.5-5.1)
[2022-07-05 08:00] LABS: Estimated Average Glucose 128 mg/dl; Hemoglobin A1C 6.1 % (4.5-5.6)
[2022-07-05] MEDS: INSULIN ASPART PER UNIT SC SCH ×4 (08:00→20:49)
[2022-07-05] MEDS: PREGABALIN 150 MG CAP PO SCH (08:29)
[2022-07-05] MEDS: lamoTRIgine 25 MG TAB PO SCH (08:29)
[2022-07-05] MEDS: HYDROmorphone INJ 0.5 MG/0.5 ML SYR IV PRN ×3 (08:29→17:13)
[2022-07-05] MEDS: BACLOFEN 10 MG TAB PO SCH (08:29)
[2022-07-05] MEDS: hydrOXYzine HCl 25 MG TAB PO SCH ×2 (08:30→20:47)
[2022-07-05] MEDS: ARIPiprazole 10 MG TAB PO SCH (08:30)
[2022-07-05] MEDS: ENOXAPARIN INJ 40 MG/0.4 ML SYR SQ SCH (08:39)
[2022-07-05] MEDS ORDERED: POTASSIUM PHOS 3 MMOL/1 ML INFUSION IV STA (09:34)
[2022-07-05] MEDS ORDERED: POTASSIUM PHOSPHATE 15 MMOL in SODIUM CHLORIDE 0.9% 250 ML IV ONE (10:00)
[2022-07-05] MEDS: PANTOprazole 40 MG in SYRINGE 0 ML IV SCH (12:00)
[2022-07-05] MEDS ORDERED: ACETAMINOPHEN 1,000 MG/100 ML VIAL IV PRN (12:19)
--- NOTE | 2022-07-05 12:32 | Surgery Progress Note ---
Date of Service July 05, 2022 Assessment & Plan (1) Peritonitis (acute) generalized: (2) Perforated viscus: Plan POD # 3 s/p ex lap with sigmoid colon resection and end colostomy -afebrile, vss, - + ostomy with stool output - no n,v - Leukocytosis trending down (15K today) - adequate urine output Plan: continue pain management, IV Tylenol as needed and PO Percocet. Try to avoid IV narcotics given her drowsiness and start PO meds as diet being advanced soft diet Continue antiemetics Lovenox 40 mg SQ daily and SCDs for DVT prophylaxis PT/OT Wound care for ostomy care case management consult for discharge planning, continue harrison drains to bulb suction highly encouraged pt to get OOB to chair and ambulate incentive spirometry Dr. Mcgrath has seen and examined pt, agrees with above. Admission and Anticipated Discharge Date Admission Date: July 01, 2022 Subjective feeling better today pain about 5/10, 8/10 before IV pain medication still feels drowsy and sleepy after pain medication no n,v tolerated clears ambulating to bathroom Urinating without difficulty no chest pain/sob Physical Exam Constitutional: WD/WN, vitals as above + obese; no acute distress and not ill appearing Neck: normal visual inspection and trachea midline Respiratory: normal respiratory effort; no respiratory distress Gastrointestinal (Abdomen): Inspection/Auscultation: + abdominal surgical incision (clean/dry/intact with fabiola) and + abdominal surgical drain present (HARRISON drains x 2 with serous drainage); abdomen not distended Percussion/Palpation: + abdomen tender (at midline incision) and abdomen soft; no guarding and abdomen not rigid LLQ colostomy with liquid brown stool present Skin: no rashes, warm and dry Psychiatric: Orientation: alert and oriented x 3 Results & Data ([facility]) Vital Signs (Past 12 Hours) Vital Signs Temp Pulse Resp BP Pulse Ox O2 Del Method O2 Flow Rate 07/05/22 11:54 36.9 C 82 18 145/77 H 91 2 07/05/22 08:07 36.8 C 90 18 129/63 91 2 07/05/22 03:42 36.5 C 97 H 20 119/74 97 Nasal Cannula 2 Laboratory Results 07/05/22 07/05/22 07/05/22 Range/Units 11:37 07:33 06:09 WBC (4.8-10.8) K/ul RBC (3.93-5.22) M/uL Hgb (12.0-16.0) g/dl Hct (34.1-44.9) % MCV (80.0-100.0) fL MCH (25.0-34.0) pg MCHC (32.0-36.0) g/dL RDW Std Deviation (36.4-46.3) fL RDW Coeff of Arnold (11.5-14.5) % Plt Count (130-400) K/uL MPV (9.4-12.3) fL Immature Gran % (Auto) % Neut % (Auto) % Lymph % (Auto) % Stephenson % (Auto) % Eos % (Auto) % Baso % (Auto) % Neut # (Auto) (1.4-6.5) K/uL Lymph # (Auto) (1.2-3.4) K/uL Stephenson # (Auto) (0.24-0.82) K/uL Eos # (Auto) (0-0.50) K/uL Baso # (Auto) (0-0.2) K/uL Immature Gran # (Auto) (0.00-0.02) K/uL Sodium (136-145) mmol/L Potassium (3.5-5.1) mmol/L Chloride (98-107) mmol/L Carbon Dioxide (21-32) mmol/L Anion Gap (3-11) BUN (6-23) mg/dl Creatinine (0.6-1.2) mg/dl Est Cr Clr Drug Dosing ml/min Est GFR ( Amer) ml/min Est GFR (Non-Af Amer) ml/min BUN/Creatinine Ratio (10-20) Glucose (70-99(Fasting)) mg/dl POC Glucose 91 82 89 (70-99) mg/dl Estimat Average Glucose mg/dl Hemoglobin A1c (4.5-5.6) % Calcium (8.5-10.1) mg/dl Phosphorus (2.5-4.9) mg/dl Total Bilirubin (0.2-1.0) mg/dl AST (13-39) U/L ALT (7-52) U/L Alkaline Phosphatase (34-104) U/L Total Protein (6.0-8.3) gm/dl Albumin (3.4-5.0) gm/dl Globulin (2.5-4.0) gm/dl Albumin/Globulin Ratio (0.9-2) 07/05/22 07/05/22 07/05/22 Range/Units 05:58 05:58 05:58 WBC 15.68 H (4.8-10.8) K/ul RBC 4.16 (3.93-5.22) M/uL Hgb 12.4 (12.0-16.0) g/dl Hct 36.7 (34.1-44.9) % MCV 88.2 (80.0-100.0) fL MCH 29.8 (25.0-34.0) pg MCHC 33.8 (32.0-36.0) g/dL RDW Std Deviation 45.3 (36.4-46.3) fL RDW Coeff of Arnold 14.1 (11.5-14.5) % Plt Count 290 (130-400) K/uL MPV 10.3 (9.4-12.3) fL Immature Gran % (Auto) 1.1 % Neut % (Auto) 76.3 % Lymph % (Auto) 13.5 % Stephenson % (Auto) 7.5 % Eos % (Auto) 1.3 % Baso % (Auto) 0.3 % Neut # (Auto) 11.96 H (1.4-6.5) K/uL Lymph # (Auto) 2.12 (1.2-3.4) K/uL Stephenson # (Auto) 1.17 H (0.24-0.82) K/uL Eos # (Auto) 0.21 (0-0.50) K/uL Baso # (Auto) 0.05 (0-0.2) K/uL Immature Gran # (Auto) 0.17 H (0.00-0.02) K/uL Sodium 143 (136-145) mmol/L Potassium 3.5 (3.5-5.1) mmol/L Chloride 106 (98-107) mmol/L Carbon Dioxide 29 (21-32) mmol/L Anion Gap 8 (3-11) BUN 6 (6-23) mg/dl Creatinine 0.33 L (0.6-1.2) mg/dl Est Cr Clr Drug Dosing 202.6 ml/min Est GFR ( Amer) 145.8 ml/min Est GFR (Non-Af Amer) 125.8 ml/min BUN/Creatinine Ratio 18.2 (10-20) Glucose 92 (70-99(Fasting)) mg/dl POC Glucose (70-99) mg/dl Estimat Average Glucose 128 mg/dl Hemoglobin A1c 6.1 H (4.5-5.6) % Calcium 9.1 (8.5-10.1) mg/dl Phosphorus 2.3 L (2.5-4.9) mg/dl Total Bilirubin 0.5 (0.2-1.0) mg/dl AST 12 L (13-39) U/L ALT 11 (7-52) U/L Alkaline Phosphatase 63 (34-104) U/L Total Protein 5.0 L (6.0-8.3) gm/dl Albumin 2.6 L (3.4-5.0) gm/dl Globulin 2.4 L (2.5-4.0) gm/dl Albumin/Globulin Ratio 1.1 (0.9-2) 07/04/22 07/04/22 Range/Units 20:38 16:22 WBC (4.8-10.8) K/ul RBC (3.93-5.22) M/uL Hgb (12.0-16.0) g/dl Hct (34.1-44.9) % MCV (80.0-100.0) fL MCH (25.0-34.0) pg MCHC (32.0-36.0) g/dL RDW Std Deviation (36.4-46.3) fL RDW Coeff of Arnold (11.5-14.5) % Plt Count (130-400) K/uL MPV (9.4-12.3) fL Immature Gran % (Auto) % Neut % (Auto) % Lymph % (Auto) % Stephenson % (Auto) % Eos % (Auto) % Baso % (Auto) % Neut # (Auto) (1.4-6.5) K/uL Lymph # (Auto) (1.2-3.4) K/uL Stephenson # (Auto) (0.24-0.82) K/uL Eos # (Auto) (0-0.50) K/uL Baso # (Auto) (0-0.2) K/uL Immature Gran # (Auto) (0.00-0.02) K/uL Sodium (136-145) mmol/L Potassium (3.5-5.1) mmol/L Chloride (98-107) mmol/L Carbon Dioxide (21-32) mmol/L Anion Gap (3-11) BUN (6-23) mg/dl Creatinine (0.6-1.2) mg/dl Est Cr Clr Drug Dosing ml/min Est GFR ( Amer) ml/min Est GFR (Non-Af Amer) ml/min BUN/Creatinine Ratio (10-20) Glucose (70-99(Fasting)) mg/dl POC Glucose 100 H 75 (70-99) mg/dl Estimat Average Glucose mg/dl Hemoglobin A1c (4.5-5.6) % Calcium (8.5-10.1) mg/dl Phosphorus (2.5-4.9) mg/dl Total Bilirubin (0.2-1.0) mg/dl AST (13-39) U/L ALT (7-52) U/L Alkaline Phosphatase (34-104) U/L Total Protein (6.0-8.3) gm/dl Albumin (3.4-5.0) gm/dl Globulin (2.5-4.0) gm/dl Albumin/Globulin Ratio (0.9-2)
--- NOTE | 2022-07-05 13:39 | Hospitalist Progress Note ---
Date of Service July 05, 2022 Assessment & Plan (1) Abdominal pain: Plan: Presented with worsening acute abdominal pain CT abd/pelvis with po contrast did show nonspecific enteritis and ?small foci of pneumatosis differential could be ischemic/inflammatory/infective Lactate on presentation was normal but increased on 07/02 with worsening leukocytosis Patient was started on IVF and IV antibiotics Lactate on presentation was normal but increased on 07/02 with worsening leukocytosis Surgery on board POD #3 exp lap which revealed perforated sigmoid colon s/p sigmoid colon resection and colostomy performed by General surgery NGT removed today and ostomy WBC 15K today Continue IV abx with Zosyn Tolerated clear liquid diet, then advanced to low fat as per surgery Clinically improved Continue monitor CBC Continue incentive spirometry Continue monitor closely (2) Electrolyte imbalance: Plan: Phosphorus 2.3 today Phos replaced Continue monitor electrolytes (3) Fibromyalgia: (4) Bipolar disorder, unspecified: Plan: Will resume home meds since patient able to tolerate clear liquid (5) Diabetes: Plan: Most recent Hba1c 6.1 on 07/05/22 Continue to hold metformin Continue insulin sliding scale per protocol Continue monitor blood sugar (6) Cervical radiculopathy: (7) S/P insertion of spinal cord stimulator: Plan: Has fibromyalgia and cervical radiculopathy and is status post insertion of a spinal cord stimulator (8) GERD (gastroesophageal reflux disease): Plan: Currently IV pantoprazole, will transition to po (9) Hypothyroid: Plan: Currently on IV levothyroxine, Will transition to PO DVT prophylaxis Continue Lovenox subq CODE STATUS Full Admission and Anticipated Discharge Date Admission Date: July 01, 2022 Subjective Pt was seen and examined for postop follow up for exp lap with sigmoid colon resection and end colostomy Sitting in chair with no acute distress Pt said that she was able to walk around with therapy She said that she tolerated clear liquid diet She said that pain is tolerable Denies any chest pain, palpitation, dizziness and fever Review of Systems Review of Systems: All systems reviewed & are unremarkable except as noted in Subjective Physical Exam Physical Exam: General- No acute distress Head- atraumatic Eyes- PERRL, EOMI, ENT- oropharynx clear, NGT removed Neck- supple, no JVD Lungs- clear to auscultation Heart- regular rhythm; no murmur Abdomen- normal bowel sound, + abdominal surgical incision (midline clean/dry/intact with fabiola) and + abdominal surgical drain present, +Ostomy sealed in place with brown liquid stool with no leakage Extremities- no calf tenderness Neuro- alert, oriented x 3; PERRL, EOMI; no facial palsy; no dysarthria Skin- warm & dry Results & Data Results & Data ([facility]) Vital Signs (Past 12 Hours) Vital Signs Temp Pulse Resp BP Pulse Ox O2 Del Method O2 Flow Rate 07/05/22 11:54 36.9 C 82 18 145/77 H 91 2 07/05/22 08:07 36.8 C 90 18 129/63 91 2 07/05/22 03:42 36.5 C 97 H 20 119/74 97 Nasal Cannula 2
[2022-07-05] MEDS ORDERED: SCOPOLAMINE 1 MG TDSY TD SCH (16:00)
[2022-07-05] MEDS: ARTIFICIAL TEARS OP SCH (20:47)
[2022-07-05] MEDS: PREGABALIN 75 MG CAP PO SCH (20:47)
[2022-07-05] MEDS: PRAZOSIN HCL 1 MG CAP PO SCH (20:48)
[2022-07-06] MEDS: AMPICILLIN/SULBACTAM SOD 3,000 MG in 0.9 % SODIUM CHLORIDE 100 ML IV SCH ×5 (00:15→23:46)
[2022-07-06] MEDS: HYDROmorphone INJ 0.5 MG/0.5 ML SYR IV PRN ×4 (02:52→19:41)
[2022-07-06] MEDS: LEVOTHYROXINE SODIUM 175 MCG TABLET PO SCH (05:40)
[2022-07-06 08:09] LABS: Basophils % (auto) 0.7 %; Eosinophils # (auto) 0.56 K/uL (0-0.50); Eosinophils % (auto) 3.8 %; Immature Granulocytes # (auto) 0.59 K/uL (0.00-0.02); Lymphocytes # (auto) 2.76 K/uL (1.2-3.4); Lymphocytes % (auto) 18.7 %; Mean Corpuscular Hemoglobin 29.3 pg (25.0-34.0); Mean Corpuscular Hgb Conc 33.3 g/dL (32.0-36.0); Monocytes # (auto) 1.37 K/uL (0.24-0.82); Monocytes % (auto) 9.3 %; Neutrophils # (auto) 9.35 K/uL (1.4-6.5); Neutrophils % (auto) 63.5 %; Platelet Count 328 K/uL (130-400); RDW Standard Deviation 45.1 fL (36.4-46.3); Red Blood Count 4.43 M/uL (3.93-5.22); White Blood Count 14.73 K/ul (4.8-10.8)
[2022-07-06 08:28] LABS: Albumin Globulin Ratio 1.1 (0.9-2); Albumin Level 2.9 gm/dl (3.4-5.0); BUN Creatinine Ratio 13.9 (10-20); Bilirubin,Total 0.4 mg/dl (0.2-1.0); Calcium 9.3 mg/dl (8.5-10.1); Creatinine Clr Calc Pharmacy 186.9 ml/min; Est GFR (African American) 141.7 ml/min; Est GFR (Non-African American) 122.3 ml/min; Globulin 2.6 gm/dl (2.5-4.0); Phosphorus 2.7 mg/dl (2.5-4.9); Potassium 3.1 mmol/L (3.5-5.1); Total Protein 5.5 gm/dl (6.0-8.3)
--- NOTE | 2022-07-06 08:30 | Surgery Progress Note ---
Date of Service July 06, 2022 Assessment & Plan (1) Peritonitis (acute) generalized: (2) Perforated viscus: Plan POD # 4 s/p ex lap with sigmoid colon resection and end colostomy - afebrile, vss, - + ostomy with stool output - no n,v - Leukocytosis trending down (14K today) - adequate urine output Plan: continue pain management, IV Tylenol scheduled and PO Percocet. Try to avoid IV narcotics given her drowsiness and start PO meds soft diet Continue antiemetics Lovenox 40 mg SQ daily and SCDs for DVT prophylaxis PT/OT Wound care for ostomy care case management consult for discharge planning, continue harrison drains to bulb suction, will go home with harrison drains highly encouraged pt to get OOB to chair and ambulate incentive spirometry 1 week follow-up in surgery Dr. Prince with [facility] covering this weekend Dr. Mcgrath has seen and examined pt, agrees with above. Admission and Anticipated Discharge Date Admission Date: July 01, 2022 Subjective still having pain, oral pain medication did not seem to control pain still requiring IV pain medication at times. No n,v tolerated soft diet ostomy working urinating without difficulty no chest pain/sob Physical Exam Constitutional: WD/WN, vitals as above + obese, cooperative and comfortable; no acute distress and not ill appearing Respiratory: normal respiratory effort; no respiratory distress and no labored breathing Gastrointestinal (Abdomen): Inspection/Auscultation: abdomen normal to inspection, + abdominal surgical incision (clean/dry/intact with fabiola) and + abdominal surgical drain present (serous drainage x 2); abdomen not distended Percussion/Palpation: + abdomen tender (mild at incision site) and abdomen soft; no guarding and abdomen not rigid LLQ colostomy with liquid brown stool Skin: no rashes, warm and dry Psychiatric: Orientation: alert and oriented x 3 Results & Data ([facility]) Vital Signs (Past 12 Hours) Vital Signs Temp Pulse Pulse Pulse Resp BP BP 07/06/22 07:52 109 H 07/06/22 06:51 36.9 C 93 H 20 136/82 07/06/22 04:15 37.0 C 97 H 20 145/80 H 07/06/22 02:49 37.0 C 96 H 21 135/80 07/06/22 00:29 81 07/05/22 23:14 36.8 C 96 H 18 134/73 Pulse Ox O2 Del Method O2 Flow Rate 07/06/22 07:52 07/06/22 06:51 93 Nasal Cannula 2 07/06/22 04:15 94 Nasal Cannula 2 07/06/22 02:49 94 Nasal Cannula 2 07/06/22 00:29 07/05/22 23:14 92 Nasal Cannula 2 Laboratory Results 07/06/22 07/06/22 07/06/22 Range/Units 07:55 07:55 07:30 WBC 14.73 H (4.8-10.8) K/ul RBC 4.43 (3.93-5.22) M/uL Hgb 13.0 (12.0-16.0) g/dl Hct 39.0 (34.1-44.9) % MCV 88.0 (80.0-100.0) fL MCH 29.3 (25.0-34.0) pg MCHC 33.3 (32.0-36.0) g/dL RDW Std Deviation 45.1 (36.4-46.3) fL RDW Coeff of Arnold 14.0 (11.5-14.5) % Plt Count 328 (130-400) K/uL MPV 10.0 (9.4-12.3) fL Immature Gran % (Auto) 4.0 % Neut % (Auto) 63.5 % Lymph % (Auto) 18.7 % Barnwell % (Auto) 9.3 % Eos % (Auto) 3.8 % Baso % (Auto) 0.7 % Neut # (Auto) 9.35 H (1.4-6.5) K/uL Lymph # (Auto) 2.76 (1.2-3.4) K/uL Barnwell # (Auto) 1.37 H (0.24-0.82) K/uL Eos # (Auto) 0.56 H (0-0.50) K/uL Baso # (Auto) 0.10 (0-0.2) K/uL Immature Gran # (Auto) 0.59 H (0.00-0.02) K/uL Sodium Pending Potassium Pending Chloride Pending Carbon Dioxide Pending Anion Gap Pending BUN Pending Creatinine Pending Est Cr Clr Drug Dosing Pending Est GFR ( Amer) Pending Est GFR (Non-Af Amer) Pending BUN/Creatinine Ratio Pending Glucose Pending POC Glucose 91 (70-99) mg/dl Calcium Pending Phosphorus Pending Total Bilirubin Pending AST Pending ALT Pending Alkaline Phosphatase Pending Total Protein Pending Albumin Pending Globulin Pending Albumin/Globulin Ratio Pending 07/05/22 07/05/22 07/05/22 Range/Units 20:03 16:42 11:37 WBC (4.8-10.8) K/ul RBC (3.93-5.22) M/uL Hgb (12.0-16.0) g/dl Hct (34.1-44.9) % MCV (80.0-100.0) fL MCH (25.0-34.0) pg MCHC (32.0-36.0) g/dL RDW Std Deviation (36.4-46.3) fL RDW Coeff of Arnold (11.5-14.5) % Plt Count (130-400) K/uL MPV (9.4-12.3) fL Immature Gran % (Auto) % Neut % (Auto) % Lymph % (Auto) % Barnwell % (Auto) % Eos % (Auto) % Baso % (Auto) % Neut # (Auto) (1.4-6.5) K/uL Lymph # (Auto) (1.2-3.4) K/uL Barnwell # (Auto) (0.24-0.82) K/uL Eos # (Auto) (0-0.50) K/uL Baso # (Auto) (0-0.2) K/uL Immature Gran # (Auto) (0.00-0.02) K/uL Sodium Potassium Chloride Carbon Dioxide Anion Gap BUN Creatinine Est Cr Clr Drug Dosing Est GFR ( Amer) Est GFR (Non-Af Amer) BUN/Creatinine Ratio Glucose POC Glucose 119 H 97 91 (70-99) mg/dl Calcium Phosphorus Total Bilirubin AST ALT Alkaline Phosphatase Total Protein Albumin Globulin Albumin/Globulin Ratio
[2022-07-06] MEDS: INSULIN ASPART PER UNIT SC SCH ×4 (08:45→20:18)
[2022-07-06] MEDS: ARIPiprazole 10 MG TAB PO SCH (08:46)
[2022-07-06] MEDS: PREGABALIN 150 MG CAP PO SCH (08:47)
[2022-07-06] MEDS: lamoTRIgine 25 MG TAB PO SCH (08:47)
[2022-07-06] MEDS: ENOXAPARIN INJ 40 MG/0.4 ML SYR SQ SCH ×2 (08:47→11:02)
[2022-07-06] MEDS: BACLOFEN 10 MG TAB PO SCH (10:09)
[2022-07-06] MEDS: hydrOXYzine HCl 25 MG TAB PO SCH ×2 (10:10→20:13)
[2022-07-06] MEDS: oxyCODONE/ACETAMINOPHEN 5mg/325mg TAB PO PRN ×3 (11:06→22:10)
[2022-07-06] MEDS: ACETAMINOPHEN 325 MG TAB PO PRN (12:25)
--- NOTE | 2022-07-06 14:37 | Hospitalist Progress Note ---
Date of Service July 06, 2022 Assessment & Plan (1) Abdominal pain: Plan: Presented with worsening acute abdominal pain CT abd/pelvis with po contrast did show nonspecific enteritis and ?small foci of pneumatosis differential could be ischemic/inflammatory/infective Lactate on presentation was normal but increased on 07/02 with worsening leukocytosis Patient was started on IVF and IV antibiotics Lactate on presentation was normal but increased on 07/02 with worsening leukocytosis Surgery on board POD #4 exp lap which revealed perforated sigmoid colon s/p sigmoid colon resection and colostomy performed by General surgery NGT removed today and ostomy WBC 14K today Continue IV abx with Zosyn, will plan to complete 7 days course total Tolerated clear liquid diet, then advanced to low fat as per surgery Clinically improved Continue monitor CBC Continue incentive spirometry Continue monitor closely (2) Electrolyte imbalance: Plan: Phosphorus 2.7 and Potassium 3.1 today K replaced Continue monitor electrolytes (3) Fibromyalgia: (4) Bipolar disorder, unspecified: Plan: Will resume home meds since patient able to tolerate clear liquid (5) Diabetes: Plan: Most recent Hba1c 6.1 on 07/05/22 Continue to hold metformin Continue insulin sliding scale per protocol Continue monitor blood sugar (6) Cervical radiculopathy: (7) S/P insertion of spinal cord stimulator: Plan: Has fibromyalgia and cervical radiculopathy and is status post insertion of a spinal cord stimulator (8) GERD (gastroesophageal reflux disease): Plan: Currently IV pantoprazole, will transition to po (9) Hypothyroid: Plan: Currently on IV levothyroxine, Will transition to PO DVT prophylaxis Continue Lovenox subq CODE STATUS Full Admission and Anticipated Discharge Date Admission Date: July 01, 2022 Subjective Pt was seen and examined for postop follow up for exp lap with sigmoid colon resection and end colostomy Lying in bed with no acute distress Pt said that pain is control She tolerated clear liquid diet Denies any chest pain, palpitation, dizziness and fever Review of Systems Review of Systems: All systems reviewed & are unremarkable except as noted in Subjective Physical Exam Physical Exam: General- No acute distress Head- atraumatic Eyes- PERRL, EOMI, ENT- oropharynx clear, NGT removed Neck- supple, no JVD Lungs- clear to auscultation Heart- regular rhythm; no murmur Abdomen- normal bowel sound, + abdominal surgical incision (midline clean/dry/intact with fabiola) and + abdominal surgical drain present, +Ostomy sealed in place with brown liquid stool with no leakage Extremities- no calf tenderness Neuro- alert, oriented x 3; PERRL, EOMI; no facial palsy; no dysarthria Skin- warm & dry Results & Data Results & Data ([facility]) Vital Signs (Past 12 Hours) Vital Signs Temp Pulse Pulse Pulse Resp BP BP 07/06/22 11:00 36.8 C 101 H 18 142/74 H 07/06/22 08:00 07/06/22 07:52 109 H 07/06/22 06:51 36.9 C 93 H 20 136/82 07/06/22 04:15 37.0 C 97 H 20 145/80 H 07/06/22 02:49 37.0 C 96 H 21 135/80 Pulse Ox O2 Del Method O2 Flow Rate 07/06/22 11:00 92 2 07/06/22 08:00 Nasal Cannula 2 07/06/22 07:52 07/06/22 06:51 93 Nasal Cannula 2 07/06/22 04:15 94 Nasal Cannula 2 07/06/22 02:49 94 Nasal Cannula 2
[2022-07-06] MEDS ORDERED: POTASSIUM CHLORIDE CRTAB 20 MEQ TABCR PO STA (14:53)
[2022-07-06] MEDS ORDERED: FUROSEMIDE INJ 20 MG/2 ML VIAL IV ONE (15:01)
[2022-07-06] MEDS: PRAZOSIN HCL 1 MG CAP PO SCH (20:13)
[2022-07-06] MEDS: ARTIFICIAL TEARS OP SCH (20:14)
[2022-07-06] MEDS: PREGABALIN 75 MG CAP PO SCH (20:14)
[2022-07-07] MEDS: HYDROmorphone INJ 0.5 MG/0.5 ML SYR IV PRN ×3 (01:42→19:47)
[2022-07-07] MEDS: oxyCODONE/ACETAMINOPHEN 5mg/325mg TAB PO PRN ×2 (04:24→10:04)
--- NOTE | 2022-07-07 05:29 | Surgery Progress Note ---
Date of Service July 07, 2022 Assessment & Plan (1) Perforated viscus: Plan: Status post sigmoid colectomy with colostomy formation on 07/02/2022 (postop day #5) Continue analgesics Continue diet as tolerated Continue antibiotics while hospitalized. Patient is currently receiving Unasyn Increase activity as able Continue MILAGRO drains to bulb suction. Patient is to be discharged home with these in place Lovenox is in place for DVT prevention Discharge home, likely once pain is adequately controlled with oral analgesics alone Admission and Anticipated Discharge Date Admission Date: July 01, 2022 Supervising Physician Co-Signing Physician Notes Dr. Pereira patient is stable but very weak She is only dangled her legs and will need to try to walk Continue current diet and medications as well as antibiotics Mobility is currently somewhat of a problem Subjective Patient is currently resting comfortably in bed at the time of my exam. She notes that she has tolerated solid food which does not seem to exacerbate abdominal pain. She denies any nausea or vomiting. She denies any shortness of breath. No fevers, shakes, chills noted. Patient does note she is having significant pain from her surgical incision which is requiring pain medication. Physical Exam Gastrointestinal (Abdomen): Abdomen is minimally distended. It is overall soft. There is pain with palpation near surgical incision. Patient's colostomy was examined and it appears pink and viable. There is a small amount of brown stool in the collection bag. There is also some gas noted in the collection bag. MILAGRO drains are in place this morning and appear to have serous fluid draining. Results & Data ([facility]) Vital Signs (Past 12 Hours) Vital Signs Temp Pulse Pulse Resp BP BP Pulse Ox 07/07/22 03:41 36.9 C 100 H 18 118/74 95 07/06/22 22:12 86 07/07/22 02:07 07/06/22 23:12 36.8 C 89 20 137/80 94 07/06/22 19:00 36.8 C 78 18 143/83 H 94 O2 Del Method O2 Flow Rate 07/07/22 03:41 Nasal Cannula 2 07/06/22 22:12 07/07/22 02:07 Nasal Cannula 2 07/06/22 23:12 Nasal Cannula 2 07/06/22 19:00 Nasal Cannula 2 PG Care Time/CCT Total # of Minutes Spent Total Time Spent with Patient: Total time spent is greater than 50% in coordination of care (as documented) at patient's floor/unit and/or counseling patient: Coding Level of Care Code None Diagnoses Perforated viscus R19.8
[2022-07-07] MEDS: LEVOTHYROXINE SODIUM 175 MCG TABLET PO SCH (05:31)
[2022-07-07] MEDS: AMPICILLIN/SULBACTAM SOD 3,000 MG in 0.9 % SODIUM CHLORIDE 100 ML IV SCH ×3 (05:33→17:54)
[2022-07-07 08:28] LABS: Basophils # (auto) 0.07 K/uL (0-0.2); Basophils % (auto) 0.5 %; Eosinophils # (auto) 1.29 K/uL (0-0.50); Hematocrit (blood only) 37.1 % (34.1-44.9); Hemoglobin 12.1 g/dl (12.0-16.0); Immature Granulocytes # (auto) 0.66 K/uL (0.00-0.02); Immature Granulocytes % (auto) 4.6 %; Lymphocytes # (auto) 2.62 K/uL (1.2-3.4); Lymphocytes % (auto) 18.3 %; Mean Corpuscular Hemoglobin 29.2 pg (25.0-34.0); Mean Corpuscular Hgb Conc 32.6 g/dL (32.0-36.0); Mean Corpuscular Volume 89.6 fL (80.0-100.0); Mean Platelet Volume 10.1 fL (9.4-12.3); Monocytes % (auto) 10.5 %; Neutrophils # (auto) 8.18 K/uL (1.4-6.5); Neutrophils % (auto) 57.1 %; Platelet Count 323 K/uL (130-400); RDW Standard Deviation 46.1 fL (36.4-46.3); Red Blood Count 4.14 M/uL (3.93-5.22); White Blood Count 14.32 K/ul (4.8-10.8)
[2022-07-07] MEDS: ARIPiprazole 10 MG TAB PO SCH (08:35)
[2022-07-07] MEDS: lamoTRIgine 25 MG TAB PO SCH (08:35)
[2022-07-07] MEDS: ENOXAPARIN INJ 40 MG/0.4 ML SYR SQ SCH (08:36)
[2022-07-07] MEDS: INSULIN ASPART PER UNIT SC SCH ×4 (08:37→20:17)
[2022-07-07] MEDS: PREGABALIN 150 MG CAP PO SCH (08:45)
[2022-07-07] MEDS: hydrOXYzine HCl 25 MG TAB PO SCH ×2 (08:46→20:28)
[2022-07-07] MEDS: BACLOFEN 10 MG TAB PO SCH (08:46)
[2022-07-07 09:09] LABS: Albumin Level 2.7 gm/dl (3.4-5.0); BUN Creatinine Ratio 15.4 (10-20); Bilirubin,Total 0.4 mg/dl (0.2-1.0); Creatinine Clr Calc Pharmacy 173.3 ml/min; Est GFR (Non-African American) 119.1 ml/min; Globulin 2.6 gm/dl (2.5-4.0); Potassium 3.3 mmol/L (3.5-5.1); Total Protein 5.3 gm/dl (6.0-8.3)
--- NOTE | 2022-07-07 12:27 | Hospitalist Progress Note ---
Date of Service July 07, 2022 Assessment & Plan (1) Abdominal pain: Plan: Presented with worsening acute abdominal pain CT abd/pelvis with po contrast did show nonspecific enteritis and ?small foci of pneumatosis differential could be ischemic/inflammatory/infective Lactate on presentation was normal but increased on 07/02 with worsening leukocytosis Patient was started on IVF and IV antibiotics Lactate on presentation was normal but increased on 07/02 with worsening leukocytosis Surgery on board POD #4 exp lap which revealed perforated sigmoid colon s/p sigmoid colon resection and colostomy performed by General surgery NGT removed today and ostomy WBC 14K today Continue IV abx with Zosyn, will plan to complete 7 days course total Continue low fiber and low fat as per surgery Continue MILAGRO drains to bulb suction. Patient is to be discharged home with these in place as per surgery Clinically improved Continue monitor CBC Continue incentive spirometry Continue monitor closely (2) Electrolyte imbalance: Plan: Phosphorus 2.7 and Potassium 3.3 today K replaced Continue monitor electrolytes (3) Fibromyalgia: (4) Bipolar disorder, unspecified: Plan: Will resume home meds since patient able to tolerate clear liquid (5) Diabetes: Plan: Most recent Hba1c 6.1 on 07/05/22 Continue to hold metformin Continue insulin sliding scale per protocol Continue monitor blood sugar (6) Cervical radiculopathy: (7) S/P insertion of spinal cord stimulator: Plan: Has fibromyalgia and cervical radiculopathy and is status post insertion of a spinal cord stimulator (8) GERD (gastroesophageal reflux disease): Plan: Currently IV pantoprazole, will transition to po (9) Hypothyroid: Plan: Continue levothyroxine 175 mcg Hypoxia Possible related to postop Continue oxygen supplement Lasix 20mg IV x1 given DVT prophylaxis Continue Lovenox subq CODE STATUS Full Admission and Anticipated Discharge Date Admission Date: July 01, 2022 Subjective Pt was seen and examined for postop follow up for exp lap with sigmoid colon resection and end colostomy Lying in bed with no acute distress Pt said that pain is control Denies any chest pain, palpitation, dizziness and fever Review of Systems Review of Systems: All systems reviewed & are unremarkable except as noted in Subjective Physical Exam Physical Exam: General- No acute distress Head- atraumatic Eyes- PERRL, EOMI, ENT- oropharynx clear, NGT removed Neck- supple, no JVD Lungs- clear to auscultation Heart- regular rhythm; no murmur Abdomen- normal bowel sound, + abdominal surgical incision (midline clean/dry/intact with fabiola) and + abdominal surgical drain present, +Ostomy sealed in place with brown liquid stool with no leakage Extremities- no calf tenderness Neuro- alert, oriented x 3; PERRL, EOMI; no facial palsy; no dysarthria Skin- warm & dry Results & Data Results & Data ([facility]) Vital Signs (Past 12 Hours) Vital Signs Temp Pulse Pulse Resp BP BP Pulse Ox 07/07/22 11:20 37.1 C 77 20 124/78 94 07/07/22 07:52 80 07/07/22 07:48 36.7 C 82 20 127/76 95 07/07/22 03:41 36.9 C 100 H 18 118/74 95 07/07/22 02:07 O2 Del Method O2 Flow Rate 07/07/22 11:20 Nasal Cannula 2 07/07/22 07:52 07/07/22 07:48 Nasal Cannula 2 07/07/22 03:41 Nasal Cannula 2 07/07/22 02:07 Nasal Cannula 2
[2022-07-07] MEDS ORDERED: FUROSEMIDE INJ 20 MG/2 ML VIAL IV ONE (12:28)
[2022-07-07] MEDS ORDERED: POTASSIUM CHLORIDE CRTAB 20 MEQ TABCR PO STA (12:28)
[2022-07-07] MEDS: ARTIFICIAL TEARS OP SCH (20:16)
[2022-07-07] MEDS: PRAZOSIN HCL 1 MG CAP PO SCH (20:17)
[2022-07-07] MEDS: PREGABALIN 75 MG CAP PO SCH (20:31)
[2022-07-07] MEDS: traZODone HCL 100 MG TAB PO SCH (21:01)
[2022-07-08] MEDS: AMPICILLIN/SULBACTAM SOD 3,000 MG in 0.9 % SODIUM CHLORIDE 100 ML IV SCH ×4 (00:12→17:56)
[2022-07-08] MEDS: oxyCODONE/ACETAMINOPHEN 5mg/325mg TAB PO PRN ×4 (01:13→21:19)
--- NOTE | 2022-07-08 05:10 | Surgery Progress Note ---
Date of Service July 08, 2022 Assessment & Plan (1) Perforated viscus: Plan: Status post sigmoid colectomy with colostomy formation on 07/02/2022 (postop day #6) Continue analgesics Continue diet as tolerated Continue antibiotics in the form of Unasyn while hospitalized. Continue to increase mobilization as Continue MILAGRO drains to bulb suction. Patient is to be discharged home with these in place Lovenox is in place for DVT prevention Discharge home, likely once pain is adequately controlled with oral analgesics alone Admission and Anticipated Discharge Date Admission Date: July 01, 2022 Supervising Physician Co-Signing Physician Notes Dr. Boyd doing much better and eating normal diet Has not really walked in the hallway but we are working on it and has oxygen in place Hopefully can be discharged over the next 1 to 2 days Subjective Patient is resting comfortably in bed. She notes she continues to have abdominal pain but is improved from yesterday. She continues to tolerate regular diet. Patient claims that she has been out of bed and ambulate in the hallway yesterday. She denies any nausea or vomiting. She denies any shortness of breath. She does not feel as though she is ready to be discharged at this point. Physical Exam Gastrointestinal (Abdomen): Abdomen is minimally distended and soft. She has appropriate pain near surgical incision. Her midline incision is clean, dry, intact. Ostomy was examined and is pink and viable. There is a considerable amount of soft brown stool in the collection bag. MILAGRO drains are in place draining serous fluid. Results & Data ([facility]) Vital Signs (Past 12 Hours) Vital Signs Temp Pulse Pulse Resp BP Pulse Ox O2 Del Method 07/08/22 03:02 36.8 C 89 18 116/65 94 Nasal Cannula 07/07/22 22:28 101 H 07/07/22 19:54 Nasal Cannula 07/07/22 19:07 36.9 C 84 18 143/84 H 94 Nasal Cannula O2 Flow Rate 07/08/22 03:02 2 07/07/22 22:28 07/07/22 19:54 2 07/07/22 19:07 2 PG Care Time/CCT Total # of Minutes Spent Total Time Spent with Patient: Total time spent is greater than 50% in coordination of care (as documented) at patient's floor/unit and/or counseling patient: Coding Level of Care Code None Diagnoses Perforated viscus R19.8
[2022-07-08] MEDS: LEVOTHYROXINE SODIUM 175 MCG TABLET PO SCH (05:41)
[2022-07-08] MEDS: INSULIN ASPART PER UNIT SC SCH ×4 (08:09→21:45)
[2022-07-08] MEDS: ARIPiprazole 10 MG TAB PO SCH (08:35)
[2022-07-08] MEDS: lamoTRIgine 25 MG TAB PO SCH (08:35)
[2022-07-08] MEDS: ENOXAPARIN INJ 40 MG/0.4 ML SYR SQ SCH (08:36)
[2022-07-08] MEDS: HYDROmorphone INJ 0.5 MG/0.5 ML SYR IV PRN ×2 (08:44→17:57)
[2022-07-08] MEDS: hydrOXYzine HCl 25 MG TAB PO SCH ×2 (08:44→21:18)
[2022-07-08] MEDS: PREGABALIN 150 MG CAP PO SCH (08:44)
[2022-07-08] MEDS: BACLOFEN 10 MG TAB PO SCH (08:44)
--- NOTE | 2022-07-08 14:51 | Hospitalist Progress Note ---
Date of Service July 08, 2022 Assessment & Plan (1) Abdominal pain: Plan: Presented with worsening acute abdominal pain CT abd/pelvis with po contrast did show nonspecific enteritis and ?small foci of pneumatosis differential could be ischemic/inflammatory/infective Lactate on presentation was normal but increased on 07/02 with worsening leukocytosis Patient was started on IVF and IV antibiotics Lactate on presentation was normal but increased on 07/02 with worsening leukocytosis Surgery on board POD #4 exp lap which revealed perforated sigmoid colon s/p sigmoid colon resection and colostomy performed by General surgery NGT removed today and ostomy WBC 14K today Continue IV abx with Zosyn, will plan to complete 7 days course total Continue low fiber and low fat as per surgery Continue MILAGRO drains to bulb suction. Patient is to be discharged home with these in place as per surgery Clinically improved Continue monitor CBC Continue incentive spirometry Continue monitor closely (2) Electrolyte imbalance: Plan: Phosphorus 2.7 and Potassium 3.3 K replaced Continue monitor electrolytes (3) Fibromyalgia: (4) Bipolar disorder, unspecified: Plan: Will resume home meds since patient able to tolerate clear liquid (5) Diabetes: Plan: Most recent Hba1c 6.1 on 07/05/22 Continue to hold metformin Continue insulin sliding scale per protocol Continue monitor blood sugar (6) Cervical radiculopathy: (7) S/P insertion of spinal cord stimulator: Plan: Has fibromyalgia and cervical radiculopathy and is status post insertion of a spinal cord stimulator (8) GERD (gastroesophageal reflux disease): Plan: Currently IV pantoprazole, will transition to po (9) Hypothyroid: Plan: Continue levothyroxine 175 mcg Hypoxia Possible related to postop Continue oxygen supplement Clinically improved DVT prophylaxis Continue Lovenox subq CODE STATUS Full Admission and Anticipated Discharge Date Admission Date: July 01, 2022 Subjective Pt was seen and examined for postop follow up for exp lap with sigmoid colon resection and end colostomy Lying in bed with no acute distress Denies any chest pain, palpitation, dizziness and fever Review of Systems Review of Systems: All systems reviewed & are unremarkable except as noted in Subjective Physical Exam Physical Exam: General- No acute distress Head- atraumatic Eyes- PERRL, EOMI, ENT- oropharynx clear, NGT removed Neck- supple, no JVD Lungs- clear to auscultation Heart- regular rhythm; no murmur Abdomen- normal bowel sound, + abdominal surgical incision (midline clean/dry/intact with fabiola) and + abdominal surgical drain present, +Ostomy sealed in place with brown liquid stool with no leakage Extremities- no calf tenderness Neuro- alert, oriented x 3; PERRL, EOMI; no facial palsy; no dysarthria Skin- warm & dry Results & Data Results & Data ([facility]) Vital Signs (Past 12 Hours) Vital Signs Temp Pulse Pulse Resp BP BP Pulse Ox 07/08/22 08:00 07/08/22 11:30 36.9 C 87 20 103/70 93 07/08/22 08:11 69 07/08/22 07:41 36.7 C 80 18 124/76 94 07/08/22 03:02 36.8 C 89 18 116/65 94 O2 Del Method O2 Flow Rate 07/08/22 08:00 Nasal Cannula 1 07/08/22 11:30 Nasal Cannula 1 07/08/22 08:11 07/08/22 07:41 Nasal Cannula 2 07/08/22 03:02 Nasal Cannula 2
--- NOTE | 2022-07-08 19:21 | XRay Report ---
XR chest 1V portable CLINICAL HISTORY: Hypoxia. COMPARISON STUDY: Chest radiograph August 27, 2019. FINDINGS: Intracanalicular electrodes are partially imaged. Cardiac size is at the upper limits of no rmal. Basilar opacities are present. There is no evidence for pulmonary edema. There is no pneumothor ax or pleural effusion. IMPRESSION: Bibasilar opacities which could reflect pneumonia or atelectasis. Radiographic follow-up is recommended. ACT 112: Negative or not required by law. Electronically signed by: Ruben Torres M.D. 07/08/2022 7:19 PM
[2022-07-08] MEDS: PREGABALIN 75 MG CAP PO SCH (21:19)
[2022-07-08] MEDS: ARTIFICIAL TEARS OP SCH (21:19)
[2022-07-08] MEDS: PRAZOSIN HCL 1 MG CAP PO SCH (21:20)
[2022-07-08] MEDS: traZODone HCL 100 MG TAB PO SCH (21:20)
[2022-07-09] MEDS: AMPICILLIN/SULBACTAM SOD 3,000 MG in 0.9 % SODIUM CHLORIDE 100 ML IV SCH ×4 (00:34→17:19)
[2022-07-09] MEDS: LEVOTHYROXINE SODIUM 175 MCG TABLET PO SCH (05:25)
[2022-07-09] MEDS: INSULIN ASPART PER UNIT SC SCH ×4 (08:15→21:40)
[2022-07-09] MEDS: ARIPiprazole 10 MG TAB PO SCH (08:16)
[2022-07-09] MEDS: ENOXAPARIN INJ 40 MG/0.4 ML SYR SQ SCH (08:16)
[2022-07-09] MEDS: lamoTRIgine 25 MG TAB PO SCH (08:16)
[2022-07-09] MEDS: PANTOprazole 40 MG TAB PO SCH (08:16)
[2022-07-09] MEDS: hydrOXYzine HCl 25 MG TAB PO SCH ×2 (08:19→19:47)
[2022-07-09] MEDS: oxyCODONE/ACETAMINOPHEN 5mg/325mg TAB PO PRN ×2 (08:19→12:13)
[2022-07-09] MEDS: PREGABALIN 150 MG CAP PO SCH (08:19)
--- NOTE | 2022-07-09 08:20 | Surgery Progress Note ---
Date of Service July 09, 2022 Assessment & Plan (1) Peritonitis (acute) generalized: (2) Perforated viscus: Plan POD # 4 s/p ex lap with sigmoid colon resection and end colostomy - afebrile, vss, - + ostomy with stool output - no n,v - Leukocytosis trending down (14K today) - adequate urine output Plan: continue pain management, IV Tylenol scheduled and PO Percocet. Try to avoid IV narcotics given her drowsiness and start PO meds soft diet Continue antiemetics Lovenox 40 mg SQ daily and SCDs for DVT prophylaxis PT/OT Wound care for ostomy care case management consult for discharge planning, continue harrison drains to bulb suction, will go home with harrison drains highly encouraged pt to get OOB to chair and ambulate incentive spirometry 1 week follow-up in surgery Dr. Prince with [facility] covering this weekend Dr. Mcgrath has seen and examined pt, agrees with above. 07/09/2022 8:18AM, Dr. Mcgrath POD # 7 s/p ex lap with sigmoid colon resection and end colostomy - afebrile, vss, - + ostomy with stool output - consult case manage for discharge plan. teaching pt for change colostomy bag skill, - pt can be discharged for surgical point, no heavy lifting > 10 LBS for 4 weeks, po cipro + flagy for 7 days, F/U me 1 week for pull out HARRISON, , sign off today, please call with questions, Thanks, Admission and Anticipated Discharge Date Admission Date: July 01, 2022 Supervising Physician Co-Signing Physician Notes Dr. Princepatient doing much better and eating normal diet Has not really walked in the hallway but we are working on it and has oxygen in place Hopefully can be discharged over the next 1 to 2 days Subjective Pt was seen and examined for postop follow up for exp lap with sigmoid colon resection and end colostomy Lying in bed with no acute distress Denies any chest pain, palpitation, dizziness and fever 07/09/2022 8:15AM, Dr. Mcgrath, pt is doing fine, tolerated diet, colostomy working well, no fever, HARRISON 70ml, clear Review of Systems Constitutional: no fever and no chills Eyes: no problem reported Respiratory: no problem reported Cardiovascular: no problem reported Gastrointestinal: as per Subjective / HPI Neurologic: no problem reported Psychiatric: bipolar, on multiple psych meds Physical Exam Constitutional: WD/WN, vitals as above Eyes: PERRL, conjunctivae normal, anicteric sclerae Neck: trachea midline, no thyromegaly Respiratory: normal respiratory effort, lungs clear to auscultation Cardiovascular: RRR, no murmur, no edema Gastrointestinal (Abdomen): Inspection/Auscultation: abdomen not distended Percussion/Palpation: + abdomen tender, + guarding (involuntary and voluntary guarding, + peritonitis, rectal exam, ) and abdomen soft; abdomen not rigid (rectal exam- no stool in rectum, no blood, ) soft, no significant tenderness, incision intact, no redness, colostomy working well, HARRISON intact, BS + Musculoskeletal: no cyanosis or clubbing, extremities motor strength 5/5 Neurologic: patellar DTR's 2+ bilat, sensation intact Psychiatric: A+Ox3, euthymic affect Results & Data ([facility]) Vital Signs (Past 12 Hours) Vital Signs Temp Pulse Pulse Resp BP Pulse Ox O2 Del Method 07/09/22 07:35 36.9 C 81 20 124/75 93 Room Air 07/09/22 07:18 72 07/09/22 04:22 36.6 C 77 20 115/74 95 07/09/22 03:58 Nasal Cannula 07/08/22 22:16 73 07/08/22 22:35 36.4 C L 94 H 20 113/72 92 Nasal Cannula O2 Flow Rate 07/09/22 07:35 07/09/22 07:18 07/09/22 04:22 2 07/09/22 03:58 2 07/08/22 22:16 07/08/22 22:35 2
[2022-07-09] MEDS: BACLOFEN 10 MG TAB PO SCH (08:22)
[2022-07-09 09:09] LABS: Hematocrit (blood only) 38.2 % (34.1-44.9); Hemoglobin 12.3 g/dl (12.0-16.0); Mean Corpuscular Hemoglobin 29.6 pg (25.0-34.0); Mean Corpuscular Hgb Conc 32.2 g/dL (32.0-36.0); Mean Corpuscular Volume 91.8 fL (80.0-100.0); Mean Platelet Volume 9.7 fL (9.4-12.3); Platelet Count 381 K/uL (130-400); RDW Coefficient of Variation 14.4 % (11.5-14.5); RDW Standard Deviation 48.6 fL (36.4-46.3); Red Blood Count 4.16 M/uL (3.93-5.22); White Blood Count 13.24 K/ul (4.8-10.8)
[2022-07-09 09:39] LABS: BUN Creatinine Ratio 15.4 (10-20); Creatinine Clr Calc Pharmacy 168.8 ml/min; Est GFR (Non-African American) 118.2 ml/min; Phosphorus 2.6 mg/dl (2.5-4.9); Potassium 3.5 mmol/L (3.5-5.1)
[2022-07-09] MEDS: ACETAMINOPHEN 325 MG TAB PO PRN ×2 (11:26→17:19)
[2022-07-09] MEDS: HYDROmorphone INJ 0.5 MG/0.5 ML SYR IV PRN ×2 (14:47→19:49)
--- NOTE | 2022-07-09 16:41 | Hospitalist Progress Note ---
Date of Service July 09, 2022 Assessment & Plan (1) Abdominal pain: Plan: Presented with worsening acute abdominal pain CT abd/pelvis with po contrast did show nonspecific enteritis and ?small foci of pneumatosis differential could be ischemic/inflammatory/infective Lactate on presentation was normal but increased on 07/02 with worsening leukocytosis Patient was started on IVF and IV antibiotics Lactate on presentation was normal but increased on 07/02 with worsening leukocytosis Surgery on board POD #4 exp lap which revealed perforated sigmoid colon s/p sigmoid colon resection and colostomy performed by General surgery NGT removed today and ostomy WBC 13K today Continue IV abx with Zosyn, will plan to complete 7 days course total Continue low fiber and low fat as per surgery Continue MILAGRO drains to bulb suction. Patient is to be discharged home with these in place as per surgery Clinically improved Continue monitor CBC Continue incentive spirometry Continue monitor closely (2) Electrolyte imbalance: Plan: Phosphorus 2.6 and Potassium 3.5 Continue monitor electrolytes (3) Fibromyalgia: (4) Bipolar disorder, unspecified: Plan: Will resume home meds since patient able to tolerate clear liquid (5) Diabetes: Plan: Most recent Hba1c 6.1 on 07/05/22 Continue to hold metformin Continue insulin sliding scale per protocol Continue monitor blood sugar (6) Cervical radiculopathy: (7) S/P insertion of spinal cord stimulator: Plan: Has fibromyalgia and cervical radiculopathy and is status post insertion of a spinal cord stimulator (8) GERD (gastroesophageal reflux disease): Plan: Currently IV pantoprazole, will transition to po (9) Hypothyroid: Plan: Continue levothyroxine 175 mcg Hypoxia Possible related to postop CXR showed bibasilar opacities which could reflect pneumonia or atelectasis. Continue oxygen supplement Currently on IV Unasyn Encourage pt to ambulate Clinically improved DVT prophylaxis Continue Lovenox subq CODE STATUS Full Admission and Anticipated Discharge Date Admission Date: July 01, 2022 Subjective Pt was seen and examined for postop follow up for exp lap with sigmoid colon resection and end colostomy Lying in bed with no acute distress She said that her breathing is much better Denies any chest pain, palpitation, dizziness and fever Review of Systems Review of Systems: All systems reviewed & are unremarkable except as noted in Subjective Physical Exam Physical Exam: General- No acute distress Head- atraumatic Eyes- PERRL, EOMI, ENT- oropharynx clear, NGT removed Neck- supple, no JVD Lungs- clear to auscultation Heart- regular rhythm; no murmur Abdomen- normal bowel sound, + abdominal surgical incision (midline clean/dry/intact with fabiola) and + abdominal surgical drain present, +Ostomy sealed in place with brown liquid stool with no leakage Extremities- no calf tenderness Neuro- alert, oriented x 3; PERRL, EOMI; no facial palsy; no dysarthria Skin- warm & dry Results & Data Results & Data ([facility]) Vital Signs (Past 12 Hours) Vital Signs Temp Pulse Pulse Resp BP Pulse Ox O2 Del Method 07/09/22 12:16 36.9 C 70 19 115/73 95 Nasal Cannula 07/09/22 09:28 Nasal Cannula 07/09/22 07:35 36.9 C 81 20 124/75 93 Room Air 07/09/22 07:18 72 O2 Flow Rate 07/09/22 12:16 2 07/09/22 09:28 2 07/09/22 07:35 07/09/22 07:18
[2022-07-09] MEDS: traZODone HCL 100 MG TAB PO SCH (19:48)
[2022-07-09] MEDS: PREGABALIN 75 MG CAP PO SCH (19:48)
[2022-07-09] MEDS: PRAZOSIN HCL 1 MG CAP PO SCH (19:48)
[2022-07-09] MEDS: ARTIFICIAL TEARS OP SCH (19:49)
[2022-07-10] MEDS: AMPICILLIN/SULBACTAM SOD 3,000 MG in 0.9 % SODIUM CHLORIDE 100 ML IV SCH ×3 (00:26→12:00)
[2022-07-10] MEDS: oxyCODONE/ACETAMINOPHEN 5mg/325mg TAB PO PRN ×2 (05:55→11:17)
[2022-07-10] MEDS: LEVOTHYROXINE SODIUM 175 MCG TABLET PO SCH (05:56)
[2022-07-10] MEDS: INSULIN ASPART PER UNIT SC SCH ×3 (08:07→17:19)
[2022-07-10] MEDS: PANTOprazole 40 MG TAB PO SCH (08:07)
[2022-07-10] MEDS: lamoTRIgine 25 MG TAB PO SCH (08:08)
[2022-07-10] MEDS: ARIPiprazole 10 MG TAB PO SCH (08:08)
[2022-07-10] MEDS: ENOXAPARIN INJ 40 MG/0.4 ML SYR SQ SCH (08:08)
[2022-07-10] MEDS: PREGABALIN 150 MG CAP PO SCH (08:12)
[2022-07-10] MEDS: hydrOXYzine HCl 25 MG TAB PO SCH (08:12)
[2022-07-10] MEDS: BACLOFEN 10 MG TAB PO SCH (08:27)
--- NOTE | 2022-07-10 17:02 | Discharge Summary ---
Date of Service July 10, 2022 Admission HPI Per Admitting Provider She is a 56-year-old female with significant past medical history of hypertension, type 2 diabetes, cervical radiculopathy, GERD,bipolar disorder and fibromyalgia with status post insertion of a spinal cord stimulator apparently took a stool softener last evening for constipation. She is not usually constipated but as she did not move her bowel she took a stool softener but did not have any bowel movement right away and started to have abdominal pain the pain persisted and she has had a small bowel movement today but with increasing pain she was brought into the emergency room for further evaluation. Denies any fever or any chills, no nausea and or vomiting, no sweating, no chest pain and/or palpitation and no problem with urine. She has had a history of severe abdominal pain like this before that resolved spontaneously. Stat CT scan of the abdomen and pelvis without contrast showed small amount of abdominal and pelvic ascites, wall thickening of several small bowel loops which may reflect enteritis with several tiny locules of extraluminal gas which could be within the mesenteric veins. Possible minimal pneumatosis although suboptimally assessed on this unenhanced exam the findings raise the possibility of bowel ischemia or tiny contained perforation no diverticulitis. She was reviewed by surgery and was advised for observation and admission. Apparently she was noted to be very tachycardic but did not have any fever and or increasing lactic acid. She has been on prazosin not sure if she has been continuing it or not. She was admitted to telemetry unit for continuation of care with a possible sepsis. Admission Exam Per Admitting Provider Physical Exam: Lying in bed with distress due to abdominal discomfort and pain. Drowsy from the action of pain medications that was given in the emergency room Constitutional: well developed, well nourished, + ill appearing and + obese Eyes: PERRL, conjunctivae normal, anicteric sclerae ENMT: external ear and nose normal, oropharynx normal Neck: trachea midline, no thyromegaly Respiratory: no respiratory distress Auscultation: lungs clear to auscultation bilaterally; no crackles Cardiovascular: Rate/Rhythm: regular rate, regular rhythm and + tachycardic Heart Sounds: normal S1 and normal S2; no murmur Gastrointestinal (Abdomen): Inspection/Auscultation: + abdomen distended; + abnormal bowel sounds (Decreased) Percussion/Palpation: + abdomen tender (Tender all over with minimal guarding and rebound tenderness) and abdomen soft Musculoskeletal: No acute arthritis involving any joint Neurologic: Alert, awake and oriented x3. No focal sensory or no motor deficit appreciated Lymphatic: no cervical or axillary lymphadenopathy Principal Diagnosis Abdominal pain: Electrolyte imbalance: Fibromyalgia: Bipolar disorder, unspecified: Diabetes: Continue insulin sliding scale per protocol Continue monitor blood sugar Cervical radiculopathy: S/P insertion of spinal cord stimulator: GERD (gastroesophageal reflux disease): Hypothyroid: Hypoxia Discharge Exam General- No acute distress Head- atraumatic Eyes- PERRL, EOMI, ENT- oropharynx clear, NGT removed Neck- supple, no JVD Lungs- clear to auscultation Heart- regular rhythm; no murmur Abdomen- normal bowel sound, + abdominal surgical incision (midline clean/dry/intact with fabiola) and + abdominal surgical drain present, +Ostomy sealed in place with brown liquid stool with no leakage Extremities- no calf tenderness Neuro- alert, oriented x 3; PERRL, EOMI; no facial palsy; no dysarthria Skin- warm & dry Discharge Data Allergies Allergy/AdvReac Type Severity Reaction Status Date / Time Iodinated Contrast Media Allergy Severe throat Verified 07/01/22 15:31 edema Sulfa (Sulfonamide Allergy Severe ANAPHYLAXIS Verified 07/01/22 15:31 Antibiotics) nitrofurantoin Allergy Intermediate Rash Verified 07/01/22 15:31 iodine Allergy Unknown Unknown Verified 07/01/22 15:31 gabapentin AdvReac Severe intensifies Verified 07/01/22 15:31 bipolar depression codeine AdvReac Intermediate Nausea Verified 07/01/22 15:31 Consultations 07/01/22 15:49 ED Decision to Admit Stat 07/01/22 18:33 Consult General Surgery Stat 07/02/22 07:53 Consult Gastroenterology Routine 07/02/22 16:39 Consult Hospitalist Routine Consult Job Developer Routine Procedures Performed Operation Date: 07/02/22 11:00 Actual Procedures p Exploratory Laparotomy, Bowel Resection with Ostomy(Not Applicable) - Khushbu Mcgrath MD Ordered Studies 07/01/22 11:31 CT abd pelvis oral con only Stat Laboratory Results WBC 13.24 K/ul (4.8-10.8) H 07/09/22 08:38 RBC 4.16 M/uL (3.93-5.22) 07/09/22 08:38 Hgb 12.3 g/dl (12.0-16.0) 07/09/22 08:38 Hct 38.2 % (34.1-44.9) 07/09/22 08:38 MCV 91.8 fL (80.0-100.0) 07/09/22 08:38 MCH 29.6 pg (25.0-34.0) 07/09/22 08:38 MCHC 32.2 g/dL (32.0-36.0) 07/09/22 08:38 RDW Std Deviation 48.6 fL (36.4-46.3) H 07/09/22 08:38 RDW Coeff of Arnold 14.4 % (11.5-14.5) 07/09/22 08:38 Plt Count 381 K/uL (130-400) 07/09/22 08:38 MPV 9.7 fL (9.4-12.3) 07/09/22 08:38 Immature Gran % (Auto) 4.6 % 07/07/22 07:37 Neut % (Auto) 57.1 % 07/07/22 07:37 Lymph % (Auto) 18.3 % 07/07/22 07:37 [place] % (Auto) 10.5 % 07/07/22 07:37 Eos % (Auto) 9.0 % 07/07/22 07:37 Baso % (Auto) 0.5 % 07/07/22 07:37 Neut # (Auto) 8.18 K/uL (1.4-6.5) H 07/07/22 07:37 Lymph # (Auto) 2.62 K/uL (1.2-3.4) 07/07/22 07:37 [place] # (Auto) 1.50 K/uL (0.24-0.82) H 07/07/22 07:37 Eos # (Auto) 1.29 K/uL (0-0.50) H 07/07/22 07:37 Baso # (Auto) 0.07 K/uL (0-0.2) 07/07/22 07:37 Immature Gran # (Auto) 0.66 K/uL (0.00-0.02) H 07/07/22 07:37 Sodium 143 mmol/L (136-145) 07/09/22 08:38 Potassium 3.5 mmol/L (3.5-5.1) 07/09/22 08:38 Chloride 103 mmol/L (98-107) 07/09/22 08:38 Carbon Dioxide 36 mmol/L (21-32) H 07/09/22 08:38 Anion Gap 4 (3-11) 07/09/22 08:38 BUN 6 mg/dl (6-23) 07/09/22 08:38 Creatinine 0.39 mg/dl (0.6-1.2) L 07/09/22 08:38 Est Cr Clr Drug Dosing 168.8 ml/min 07/09/22 08:38 Est GFR ( Amer) 137.0 ml/min 07/09/22 08:38 Est GFR (Non-Af Amer) 118.2 ml/min 07/09/22 08:38 BUN/Creatinine Ratio 15.4 (10-20) 07/09/22 08:38 Glucose 122 mg/dl (70-99(Fasting)) H 07/09/22 08:38 POC Glucose 115 mg/dl (70-99) H 07/10/22 16:52 Estimat Average Glucose 128 mg/dl 07/05/22 05:58 Hemoglobin A1c 6.1 % (4.5-5.6) H 07/05/22 05:58 Lactate 1.9 mmol/L (0.4-2.0) 07/03/22 09:23 Calcium 9.0 mg/dl (8.5-10.1) 07/09/22 08:38 Phosphorus 2.6 mg/dl (2.5-4.9) 07/09/22 08:38 Magnesium 2.0 mg/dl (1.7-2.4) 07/09/22 08:38 Total Bilirubin 0.4 mg/dl (0.2-1.0) 07/07/22 07:37 Direct Bilirubin 0.2 mg/dl (0-0.2) 07/03/22 04:21 AST 20 U/L (13-39) 07/07/22 07:37 ALT 14 U/L (7-52) 07/07/22 07:37 Alkaline Phosphatase 82 U/L (34-104) 07/07/22 07:37 Total Protein 5.3 gm/dl (6.0-8.3) L 07/07/22 07:37 Albumin 2.7 gm/dl (3.4-5.0) L 07/07/22 07:37 Globulin 2.6 gm/dl (2.5-4.0) 07/07/22 07:37 Albumin/Globulin Ratio 1.0 (0.9-2) 07/07/22 07:37 Lipase 36 U/L (11-82) 07/02/22 07:37 TSH 0.028 uIu/ml (0.300-4.500) L 07/01/22 11:25 Free T4 0.69 ng/dl (0.61-1.60) 07/01/22 11:25 Urine Color Yellow 07/01/22 19:10 Urine Appearance Clear (Clear) 07/01/22 19:10 Urine pH 5.5 (4.5-7.5) 07/01/22 19:10 Ur Specific Holiday 1.014 (1.000-1.030) 07/01/22 19:10 Urine Protein Negative (Negative) 07/01/22 19:10 Urine Glucose (UA) Negative (Negative) 07/01/22 19:10 Urine Ketones Negative (Negative) 07/01/22 19:10 Urine Blood Negative (Negative) 07/01/22 19:10 Urine Nitrite Negative (Negative) 07/01/22 19:10 Urine Bilirubin Negative (Negative) 07/01/22 19:10 Urine Urobilinogen Negative (Negative) 07/01/22 19:10 Ur Leukocyte Esterase 2+ (Negative) H 07/01/22 19:10 Urine WBC (Auto) >30 /hpf (0-5) H 07/01/22 19:10 Urine RBC (Auto) 0-4 /hpf (0-4) 07/01/22 19:10 U Hyaline Cast (Auto) 1-5 /lpf (0-5) 07/01/22 19:10 U Epithel Cells (Auto) >30 /lpf (0-5) H 07/01/22 19:10 Urine Bacteria (Auto) Negative (Negative) 07/01/22 19:10 Stl C. cayetanensis PCR Not Detected (NotDetected) 07/04/22 06:30 Stool Rotavirus A PCR Not Detected (NotDetected) 07/04/22 06:30 Stl Adenov F 40/41 PCR Not Detected (NotDetected) 07/04/22 06:30 Stool Astrovirus (PCR) Not Detected (NotDetected) 07/04/22 06:30 Stool Campylobacter PCR Not Detected (NotDetected) 07/04/22 06:30 Stl C. diff Tox B Gene Cancelled 07/04/22 06:30 Stl C. diff Tox A/B PCR Not Detected (NotDetected) 07/04/22 06:30 Stool Cryptosporidium PCR Not Detected (NotDetected) 07/04/22 06:30 Stl E.coli Shiga Tox PCR Not Detected (NotDetected) 07/04/22 06:30 Stl Enterotoxigenic E PCR Not Detected (NotDetected) 07/04/22 06:30 Stool EPEC (PCR) Not Detected (NotDetected) 07/04/22 06:30 Stool EAEC (PCR) Not Detected (NotDetected) 07/04/22 06:30 Stl E. histolytica PCR Not Detected (NotDetected) 07/04/22 06:30 Stool Giardia Lamblia PCR Not Detected (NotDetected) 07/04/22 06:30 Stool Salmonella PCR Not Detected (NotDetected) 07/04/22 06:30 Stool Sapovirus (PCR) Not Detected (NotDetected) 07/04/22 06:30 Stl P. shigelloides PCR Not Detected (NotDetected) 07/04/22 06:30 Stl Shigella/EIEC PCR Not Detected (NotDetected) 07/04/22 06:30 St Y.enterocolitica PCR Not Detected (NotDetected) 07/04/22 06:30 Stool Vibrio (PCR) Not Detected (NotDetected) 07/04/22 06:30 Stl Vibrio cholerae PCR Not Detected (NotDetected) 07/04/22 06:30 Stl Norovirus GI/GII PCR Not Detected (NotDetected) 07/04/22 06:30 SARS-CoV-2, RNA, NAAT NEGATIVE (NEGATIVE) 07/01/22 18:38 Impressions Abdomen/Pelvis CT 07/01/22 11:31 CT OF THE ABDOMEN AND PELVIS WITH ORAL CONTRAST CLINICAL HISTORY: RLQ abd pain, IV contrast allergy COMPARISON STUDY: CT of the abdomen and pelvis January 07, 2019. TECHNIQUE: Axial images of the abdomen and pelvis were obtained without IV contrast. Oral contrast was administered. Automated exposure control was utilized for the study. A dose lowering technique was utilized adhering to the principles of ALARA. FINDINGS: Ground glass and linear opacities within the lower lungs favor atelectasis. Intracanalicular device is partially imaged. Evaluation of the abdomen and pelvis is suboptimal given the lack of IV contrast and mild motion artifact. Calcifications within the right hepatic lobe are unchanged. There is no biliary ductal dilatation status post cholecystectomy. No hepatic lesions are identified on this unenhanced exam. Spleen, adrenal glands, left kidney and pancreas are unremarkable. There is a 2 mm calculus within the lower pole of the right kidney. There are no ureteral calculi. There is no hydronephrosis. There is no evidence for a bowel obstruction. Oral contrast reaches the colon. However, there is a small amount of abdominal and pelvic ascites. There is apparent wall thickening of several small bowel loops. In addition, there are scattered tiny extraluminal locules of gas which could be within mesenteric veins. Definitive source for this gas is not identified. Minimal small bowel pneumatosis would be difficult to exclude. No fluid collection is identified on unenhanced exam. Colonic diverticulosis is noted. There is wall thickening of the sigmoid colon. No acute fracture or suspicious lesion is identified within the visualized skeletal structures. A moderate amount of stool within the colon is present. IMPRESSION: 1. Small amount of abdominal and pelvic ascites. Wall thickening of several small bowel loops which may reflect enteritis with several tiny locules of extraluminal gas which could be within mesenteric veins. Possible minimal pneumatosis. Although suboptimally assessed on this unenhanced exam, the findings raise the possibility of bowel ischemia or a tiny contained perforation. Close clinical follow-up is recommended. If persistent abdominal pain, surgical consultation is recommended. 2. Sigmoid diverticulosis with colonic wall thickening. This could reflect circular muscular hypertrophy although acute diverticulitis would be difficult to exclude. No abscess. 3. No bowel obstruction. Oral contrast reaches the colon. 4. Moderate amount of stool within the colon. ACT 112: Negative or not required by law. Electronically signed by: Ruben Torres M.D. 07/01/2022 3:03 PM KUB X-Ray 07/03/22 05:00 KUB CLINICAL HISTORY: evaluate NGT placement COMPARISON STUDY: CT of the abdomen and pelvis July 01, 2022. KUB July 02, 2022. FINDINGS: Nasogastric tube is coiled within the stomach. Tip projects over the gastric cardia. Skin fabiola from laparotomy are noted. Residual contrast within the left colon is noted from prior CT. Multiple loops of dilated small bowel are noted. These measure up to 4.4 cm. Stimulator device is noted. IMPRESSION: 1. Nasogastric tube coiled within the stomach. Tip projects over the gastric cardia. 2. Small bowel dilatation. Given recent procedure, this favors a postoperative ileus. A partial small bowel obstruction could appear similar. ACT 112: Negative or not required by law. Electronically signed by: Ruben Torres M.D. 07/03/2022 11:44 AM Chest X-Ray 07/08/22 18:48 XR chest 1V portable CLINICAL HISTORY: Hypoxia. COMPARISON STUDY: Chest radiograph August 27, 2019. FINDINGS: Intracanalicular electrodes are partially imaged. Cardiac size is at the upper limits of normal. Basilar opacities are present. There is no evidence for pulmonary edema. There is no pneumothorax or pleural effusion. IMPRESSION: Bibasilar opacities which could reflect pneumonia or atelectasis. Radiographic follow-up is recommended. ACT 112: Negative or not required by law. Electronically signed by: Ruben Torres M.D. 07/08/2022 7:19 PM Hospital Course (1) Abdominal pain: Presented with worsening acute abdominal pain CT abd/pelvis with po contrast did show nonspecific enteritis and ?small foci of pneumatosis differential could be ischemic/inflammatory/infective Lactate on presentation was normal but increased on 07/02 with worsening leukocytosis Patient was started on IVF and IV antibiotics Lactate on presentation was normal but increased on 07/02 with worsening leukocytosis Surgery on board POD #4 exp lap which revealed perforated sigmoid colon s/p sigmoid colon resection and colostomy performed by General surgery NGT removed today and ostomy WBC 13K today Continue IV abx with Zosyn, Case discussed with Surgery Dr. Mcgrath that recommended cipro and flagyl for 7 more days Continue low fiber and low fat as per surgery Continue MILAGRO drains to bulb suction. Patient is to be discharged home with these in place as per surgery Clinically improved Continue monitor CBC Continue incentive spirometry Continue monitor closely (2) Electrolyte imbalance: Phosphorus 2.6 and Potassium 3.5 Continue monitor electrolytes (3) Fibromyalgia: (4) Bipolar disorder, unspecified: Will resume home meds since patient able to tolerate clear liquid (5) Diabetes: Most recent Hba1c 6.1 on 07/05/22 Continue to hold metformin Continue insulin sliding scale per protocol Continue monitor blood sugar (6) Cervical radiculopathy: (7) S/P insertion of spinal cord stimulator: Has fibromyalgia and cervical radiculopathy and is status post insertion of a spinal cord stimulator (8) GERD (gastroesophageal reflux disease): Currently IV pantoprazole, will transition to po (9) Hypothyroid: Continue levothyroxine 175 mcg Hypoxia Possible related to postop CXR showed bibasilar opacities which could reflect pneumonia or atelectasis. Continue oxygen supplement Currently on IV Unasyn Encourage pt to ambulate Clinically improved DVT prophylaxis Continue Lovenox subq CODE STATUS Full Total Time Total Time Spent Total Time Spent (In Minutes): 35 minutes Discharge Plan Discharge Items Patient Disposition: Home - Home Health Services Reason For Visit: ACUTE ABDOMINAL PAIN, POSS SEPSIS Discharge Diagnosis: Abdominal pain: Electrolyte imbalance: Fibromyalgia: Bipolar disorder, unspecified: Diabetes: Continue insulin sliding scale per protocol Continue monitor blood sugar Cervical radiculopathy: S/P insertion of spinal cord stimulator: GERD (gastroesophageal reflux disease): Hypothyroid: Hypoxia Activity: Resume your previous activity Non-emergency contact: Primary Care Provider and Surgeon Call non-emergency contact if: you have any medication questions Follow-up/Referrals: Juanjose Robb MD [Primary Care Provider] - (Date & Time 07/13/2022 11:00 AM Provider Juanjose Robb MD Department [facility] ) Diet: Carb Consistent or DM2 and Low Fiber Addtl Attending Provider Instructions: Follow up with your primary care provider 07/13/2022 @ 11:00 AM Juanjose Robb MD Department [facility] Follow up with surgery in 1- 2 weeks ( Please call [phone] to schedule for the appointment) Continue oxygen supplement with 2 liter nasal canula with ambulation Continue incentive spirometry Fall precaution Do not drive or operate any machine while on narcotic (Oxycodone) Please hold next dose of Oxycodone if you become drowsy and lethargy Continue MILAGRO drains ton discharge. Plan to remove in 1 week at next surgery appointment Post-Surgical ~Discharge Instructions Activity Recommendations: - lifting limitation: (10 pounds for 6 weeks), - exercise/sex/sports limit: (nonstrenuous for 6 weeks), - driving or machine use limit: (none for 1 week or until pain free and no longer taking narcotic pain medication), - Shower/bathe limit: (may shower beginning tomorrow) Diet: - Low fiber diet for 2 weeks SPECIAL CARE INSTRUCTIONS: - May shower. Let water run over area and pat dry. - Surgical fabiola will be remove in office once incision is healed. - Surgical drains will be remove in office, keep record of output and color daily and bring to office with you. - Call the surgeon's office with any questions or concerns - - (ex. temperature higher than 101 degrees F, excessive bleeding or pain). MEDICATIONS: - Resume previous medications unless instructed otherwise by your surgeon. - May alternate extra strength Tylenol and Ibuprofen as needed for mild to moderate pain - Percocet 1 every 6 hours, as needed for moderate to severe pain - Finish course of antibiotics as prescribed FOLLOW UP VISIT: - If not already scheduled, please call the office to schedule a one-two follow -up appointment. Office number Pending Studies at Discharge: No Stand-Alone Forms: My [facility] [employer], Work/School Release, Smoking Cessation Medications and DC Order Prescriptions: New oxycodone-acetaminophen [Percocet] 5-325 mg Tablet 1 tab PO Q8H PRN (Reason: pain) Qty: 15 0RF Rx Instructions: please hold for lethargy Continued hydroxyzine HCl 50 mg tablet 50 mg PO BID trazodone 100 mg tablet 200 mg PO HS aripiprazole 20 mg tablet 20 mg PO QAM esomeprazole magnesium [Nexium 24HR] 20 mg Tablet,Delayed Release (Dr/Ec) 20 mg PO DAILYBB ondansetron 4 mg tablet,disintegrating 4 mg PO Q8H PRN (Reason: nausea and vomiting) Qty: 14 0RF prazosin [Minipress] 2 mg capsule 2 mg PO HS Rx Instructions: TOTAL DOSE 3 MG--TAKES WITH 1 MG TAB. pregabalin 150 mg capsule 150 mg PO QAM prazosin [Minipress] 1 mg capsule 1 mg PO HS Rx Instructions: TOTAL DOSE 3 MG--TAKES WITH 2 MG TAB. baclofen 10 mg tablet 10 mg PO QAM pregabalin 225 mg capsule 225 mg PO HS levothyroxine 175 mcg tablet 175 mcg PO DAILYBB clobetasol 0.05 % Cream 1 applic TOPICAL BID PRN (Reason: AFFECTED AREA) tramadol 50 mg tablet 50 mg PO BID PRN (Reason: Pain) lamotrigine 25 mg tablet 50 mg PO QAM metformin 500 mg tablet extended release 24 hr 500 mg PO QAM dextran 70-hypromellose Drops 1 drp OPHTHALMIC (EYE) HS Estroven Mood and Memory 400 mcg Tablet 1 tab PO HS Discharge Orders: Discharge Order (Routine); Ordered 07/10/22 Ordered By: Johnathon Terry/Other Patient Handouts: Managing Type 2 Diabetes, Colostomy: Managing Your Nutrition Admission Data Admit Date/Time: 07/01/22 18:21 Attending Provider: Johnathon Schwarz Admit Provider: Israel Cote Primary Care Provider: Juanjose Robb Other Providers: Israel Cote ; Raine Obregon ; Adalgisa Calhoun ; Cathy Ferrari ; Shanthi Llanes I. ; Johnathon Schwarz ; Erendira Teresa ; Angely Carvajal ; Emmie Almaguer ; Janak Darden ; Mani Guzman ; Ambrosio Candelario ; Emma Gonzalez ; Joseph Taveras ; Verito Heredia ; Loulou Correia ; Ricky Lainez ; Morena Schofield ; Gretta Sena ; Migdalia Murrell ; Misty Alicea I. ; Terence Mcguire ; Travon Ross ; Richard Khan ; Henry Blackwood ; Helio Naranjo ; Timoteo Huerta ; Rafael Steel ; Sergio Franklin ; Irma Bhandari ; Shilo Sol ; Alfredo Ford ; Micheal Calderon ; Bob Joseph ; Angel Luis Simmons ; Efren Abel ; Kiana Chow ; Stanley Torre ; Nallely Caputo ; [facility] Other Interventions: Discharge Summary Assessment (RN) Last Done: 07/10/22 16:49
== END 2022-07-10 18:02 | disposition home health service (06) | DRG 853 ==
LOC: ED 10:53 → 2S 18:21 → SUATTDRO 18:21 → 2S 20:56 → 1E 07-02 16:28 → 2N 07-04 18:10